=== PATIENT | male | born 1940 | race Caucasian/White ===

== ENCOUNTER 2016-11-01 09:17 | Outpatient (CLI) | payer MEDICARE ==
[~2016-11-01] VITALS: Ht 172.7 cm; Wt 110.3 kg
[~2016-11-01 09:17] MED LIST: ACET-2267 PO; ALLO100T PO; AMOX500C2 PO; ASPI-892 PO; CARV12.52 PO; CARV12.53 PO; CHOL10003 PO; CHOL2000 PO; CLIN300C11 PO; CLOP75TA PO; CLOP75TA28 PO; CLOPIDOGREL; DIGO125T PO; DIGO125T91 PO; FURO20TA4 PO; HCT25T; HYDR-3812 PO; KCL10CCR PO; LACT1CAP8 PO; LISI1TAB10 PO; LSNP10T; PANT40TA3 PO; PNT40TEC PO; SENN1TAB27 PO; SENN1TAB76 PO; SIMV40TA4 PO; SMV20T PO; TRAM50TA2 PO
[2016-11-01] MEDS ORDERED: CARV6.252 PO (09:30)
[2016-11-01] MEDS ORDERED: APIX5TAB PO (09:30)
[2016-11-01] MEDS ORDERED: HYDR12.5 PO (09:30)
[2016-11-01] MEDS ORDERED: UBID60CA6 PO (09:30)
[2016-11-01] MEDS ORDERED: AMIO200T2 PO (09:30)
[2016-11-01 09:39] VITALS: BP 142/74
== END 2016-11-01 10:20 | disposition home or self-care (01) ==
LOC: PREOP 09:17
PROVIDERS: ATTEND Orthopaedic Surgery
DX: Z01.818 Encounter for other preprocedural examination (principal); M65.341 Trigger finger, right ring finger
CPT/HCPCS: 87081

== ENCOUNTER 2016-11-06 07:33 | Day surgery (SDC) | payer MEDICARE ==
--- NOTE | 2016-11-01 10:16 | HISTORY AND PHYSICAL ---
DICTATING PHYSICIAN: Dr. Rodriguez DATE OF ADMISSION: 11/06/2016 Outpatient surgery for right ring finger trigger finger release. HISTORY: The patient is a 77-year-old, ljuwf-mtwa-ogbaqzpd gentleman with complaints of catching and locking in his right ring finger. He reports this has been ongoing for 2 years. He reports that it is worse with repetitive activities. He reports it is painful to base of his ring finger. He reports that it swells at times. He denies any specific trauma. He reports activity limitations because of the finger and because of this he has elected to proceed with surgical intervention. REVIEW OF SYSTEMS: No chest pain, no shortness of breath. No dysuria. PAST MEDICAL HISTORY: 1. Actinic keratosis. 2. Gout. 3. Diabetes mellitus. 4. Reflux. 5. Hyperlipidemia. 6. Hypertension. 7. Neck pain. 8. Sleep apnea. 9. Vertigo. 10. CVA. 11. History of sepsis. PAST SURGICAL HISTORY: 1. Appendectomy. 2. Cholecystectomy. 3. Tonsillectomy. 4. Colectomy. 5. Fistula repair. SOCIAL HISTORY: The patient denies alcohol and tobacco. FAMILY HISTORY: Noncontributory. PRIMARY CARE PROVIDER: Dr. Dorantes. MEDICATIONS: 1. Clopidogrel. 2. Amiodarone. 3. Eliquis. 4. Simvastatin. 5. Allopurinol. 6. Vitamins. 7. Carvedilol. 8. Hydrochlorothiazide. 9. Aspirin. ALLERGIES: No known drug allergies PHYSICAL EXAMINATION: The patient is well-developed, well-nourished, in no acute distress. HEENT: Normocephalic, atraumatic. Pupils are equal, round, and reactive, oropharynx is clear. NECK: Supple. No lymphadenopathy. LUNGS: Clear to auscultation bilaterally. HEART: Regular rate and rhythm. ABDOMEN: Soft, nontender, nondistended. EXTREMITY EXAM: The right ring finger demonstrates tenderness at his A1 mannie. He can demonstrate active triggering. He has intact flexion and extension, but triggering noted with flexion. Sensation is intact distally. No skin lesions noted. IMPRESSION: Right ring finger trigger. PLAN: Right ring finger trigger finger release. The risks, benefits, options, ramifications and recovery were discussed at length with the patient. He understands and wishes to proceed. Job ID: [id number] Dictated Date: 10/31/2016 15:26:59 Agency Trainer Date: 11/01/2016 10:09:18/zainab
[~2016-11-06] VITALS: Ht 172.7 cm; Wt 110.3 kg
[~2016-11-06 07:33] MED LIST changes: +AMIO200T2 PO; +APIX5TAB PO; +CARV6.252 PO; +HYDR12.5 PO; +UBID60CA6 PO
[2016-11-06] MEDS ORDERED: CLINDAMYCIN 600 MG/50 ML IVPB 50 ML IV ONE (07:45)
[2016-11-06 07:50] VITALS: BP 112/73
[2016-11-06] MEDS ORDERED: LACTATED RINGERS 1,000 ML IV PRN (08:04)
[2016-11-06] MEDS ORDERED: fentaNYL INJECTION 100 MCG/2 ML AMP ONE (08:14)
[2016-11-06] MEDS ORDERED: proPOfol 200 MG/20 ML (DIPRIVAN) VIAL IV ONE (08:14)
[2016-11-06] MEDS ORDERED: BUPIVACAINE 0.5% 30 ML (SENSORCAINE) VIAL ONE (08:15)
[2016-11-06] MEDS ORDERED: LIDOCAINE 1% INJ 20 ML (XYLOCAINE) VIAL ONE (08:15)
[2016-11-06] MEDS ORDERED: HYDROcodone/APAP 5 MG/325 MG (LORTAB) TAB PO PRN (09:00)
[2016-11-06] MEDS ORDERED: LIDOCAINE PF 2% 10 ML (XYLOCAINE) AMP ONE (09:17)
--- NOTE | 2016-11-06 09:19 | Progress Note-Pre Operative ---
Pre-Operative Progress Note H&P Reviewed The H&P was reviewed, patient examined and no changes noted. Date H&P Reviewed: Nov 06, 2016 Time H&P Reviewed: 08:25 Pre-Operative Diagnosis: right ring finger trigger ERROL HERNANDES MD Nov 06, 2016 09:19
--- NOTE | 2016-11-06 09:21 | Progress Note-Post Operative ---
Post-Operative Progess Note Analytics Lead ivon tracey Pre-Operative Diagnosis right ring finger trigger Post-Operative Diagnosis right ring finger trigger Post-Op Procedure Note Date of Procedure: Nov 06, 2016 Name of Procedure: right ring finger A1 mannie release Anesthesia Type MAC plus local Estimated blood loss (mL): minimal Packing: none Specimen(s) collected none ERROL HERNANDES MD Nov 06, 2016 09:21
[2016-11-06] MEDS ORDERED: ONDANSETRON 4 MG/2 ML (SDV) Z0FRAN IVP PRN (09:30)
[2016-11-06 09:45] VITALS: BP 112/61
[2016-11-06] MEDS ORDERED: HYDR-3062 PO (09:52)
[2016-11-06 10:15] VITALS: BP 113/63
[2016-11-06 10:39] VITALS: BP 113/63
--- NOTE | 2016-11-06 13:47 | OPERATIVE REPORT ---
PROCEDURE PHYSICIAN: ERROL HERNANDES DATE OF PROCEDURE: 11/06/2016 PREOPERATIVE DIAGNOSIS: Right ring trigger finger. POSTOPERATIVE DIAGNOSIS: Right ring trigger finger. PROCEDURE: Right ring finger A1 mannie release. SURGEON: Jennifer MANAGER ANIMAL: Varun Turner who assisted throughout the procedure and closed the incision. ANESTHESIA: Monitored anesthesia care plus local by Dr. Tinoco TOURNIQUET TIME: 4 minutes at 250 mmHg. ESTIMATED BLOOD LOSS: Minimal. DRAINS: None. COMPLICATIONS: None. POSTOPERATIVE PLAN: Routine protocol. The patient was transported to the recovery room, awake, in stable condition. STATEMENT OF MEDICAL NECESSITY: The patient is a 76-year-old, fasan-juhe-urioczde gentleman with complaints of greater than one-year history of right ring finger catching and locking. He was tender over his A1 mannie. He had pain with flexion. He can demonstrate active triggering. He failed to respond to conservative measures and due to functional impairment, the patient elected to proceed with surgical intervention. PROCEDURE: After risks and benefits of procedure were discussed and questions were answered an informed consent was signed and placed on chart. The operative site was confirmed in the preoperative holding and initialed by the surgeon. The patient was then transported to the operating room and after adequate levels of monitored anesthesia care were obtained under sterile conditions, the right ring finger was infiltrated with combination of plain lidocaine and plain Marcaine. The right upper extremity was then prepped and draped usual sterile fashion. With arm elevated, the tourniquet was inflated to 250 mmHg. A longitudinal incision was made over the A1 mannie. The underlying soft tissues were bluntly dissected. The A1 mannie was identified and incised longitudinally in line with the incision. The flexor tendons were intact. The finger was taken through a range of motion with no catching or locking noted with full motion noted. The wound was copiously irrigated after deflating the tourniquet and then closed with 4-0 nylon in a simple interrupted fashion. A soft dressing was applied and the patient was transported to the recovery room, awake, in stable condition. Job ID: [id number] Dictated Date: 11/06/2016 09:19:57 Paper Machine Tender Date: 11/06/2016 13:40:46 / zainab
== END 2016-11-06 10:39 | disposition home or self-care (01) ==
LOC: SDC 07:33
PROVIDERS: ATTEND Orthopaedic Surgery
DX: M65.341 Trigger finger, right ring finger (principal); E11.9 Type 2 diabetes mellitus without complications; K21.9 Gastro-esophageal reflux disease without esophagitis; E78.5 Hyperlipidemia, unspecified; I10 Essential (primary) hypertension; Z86.73 Personal history of transient ischemic attack (TIA), and cerebral infarction without residual deficits; Z79.899 Other long term (current) drug therapy

== ENCOUNTER → 2017-01-16 | Outpatient (CLI) | payer MEDICARE ==
[~2017-01-16] MED LIST changes: +HYDR-3062 PO
[2017-01-16 12:03] LABS: BASOPHILS % (AUTO) 1 % (0-10); EOSINOPHILS # (AUTO) 0.2 10^3/uL (0.0-0.3); EOSINOPHILS % (AUTO) 4 % (0-10); LYMPHOCYTES # (AUTO) 1.4 X 10^3 (1.0-4.0); LYMPHOCYTES % (AUTO) 23 % (12-44); MEAN CORPUSCULAR HEMOGLOBIN 31 PG (25-34); MEAN CORPUSCULAR HGB CONC 33 G/DL (32-36); MEAN CORPUSCULAR VOLUME 93 FL (80-99); MEAN PLATELET VOLUME 8.9 FL (7.4-10.4); MONOCYTES # (AUTO) 0.7 X 10^3 (0.0-1.0); MONOCYTES % (AUTO) 11 % (0-12); NEUTROPHILS # (AUTO) 3.9 X 10^3 (1.8-7.8); NEUTROPHILS % (AUTO) 62 % (42-75); PLATELET COUNT 247 10^3/uL (130-400); RED CELL DISTRIBUTION WIDTH 14.7 % (10.0-14.5); WHITE BLOOD COUNT 6.3 10^3/uL (4.3-11.0)
[2017-01-16 12:32] LABS: ERYTHROCYTE SEDIMENTATION RATE 18 MM/HR (0-30)
== END ==
LOC: LAB 11:40
PROVIDERS: ATTEND Internal Medicine
DX: T81.31XA Disruption of external operation (surgical) wound, not elsewhere classified, initial encounter (principal)
CPT/HCPCS: 36415; 85025; 85652

== ENCOUNTER → 2017-01-24 | Outpatient (CLI) | payer MEDICARE ==
--- NOTE | 2017-01-27 13:23 | ECHOCARDIOGRAPHY REPORT ---
DATE OF SERVICE: 01/24/2017 A 2D ECHOCARDIOGRAM REFERRING PHYSICIAN: Dr. Dorantes. MEASUREMENT: LVID end diastolic 6.0. IVS thickness 0.8. LVPW thickness 0.8. Left atrial diameter 4.7. Ejection fraction 30%. FINDINGS: 1. The left ventricle is dilated with diffuse left ventricular hypokinesia. Systolic function is reduced. Estimated ejection fraction 30%. 2. The left atrium is dilated. No clot or thrombus were seen within the left atrium. 3. The right atrium and right ventricle are normal in size. No clot or thrombus were seen within the right side. 4. Mitral valve is normal in morphology with mild mitral regurgitation noted by color Doppler flow. No mitral valve prolapse. No mitral valve stenosis. 5. Aortic valve is trileaflet with normal opening and closing pattern. No significant aortic stenosis or regurgitation was seen. 6. Tricuspid valve is normal in morphology with mild tricuspid regurgitation noted by color Doppler flow. Doppler across the tricuspid valve estimated pulmonary artery pressure of 26 plus right atrial pressure. 7. Pulmonic valve is functioning normally. 8. No pericardial effusion. CONCLUSION: 1. Dilated left ventricle with diffuse left ventricular hypokinesia. Systolic function is reduced. Estimated ejection fraction 30%. 2. Left atrial dilatation. 3. Mild mitral and tricuspid regurgitation. 4. Estimated pulmonary artery pressure of 30 mmHg. Job ID: [id number] DocumentID: [id number] Dictated Date: 01/27/2017 08:14:46 Preschool Director Date: 01/27/2017 10:14:56 Dictated By: LAKSHMI SALDIVAR MD
== END ==
LOC: CARD 12:31
PROVIDERS: ATTEND Physician Assistant
DX: I48.0 Paroxysmal atrial fibrillation (principal); I11.0 Hypertensive heart disease with heart failure; I50.22 Chronic systolic (congestive) heart failure; E78.2 Mixed hyperlipidemia
CPT/HCPCS: 93306

== ENCOUNTER 2017-01-30 10:40 | Outpatient (RCR) | payer MEDICARE | END 2017-01-30 16:00 | disposition home or self-care (01) | LOC: WOUNDCARE 10:40 | PROVIDERS: ATTEND Internal Medicine | DX: T81.31XA Disruption of external operation (surgical) wound, not elsewhere classified, initial encounter (principal); S31.105S Unspecified open wound of abdominal wall, periumbilic region without penetration into peritoneal cavity, sequela | CPT/HCPCS: 15271; 87070; 87075; 87077; 87101; 87186; 87205; 99212; 99213 ==

== ENCOUNTER 2017-05-30 05:33 | Outpatient (CLI) | payer MEDICARE ==
[~2017-05-30] VITALS: Ht 172.7 cm; Wt 115.2 kg
== END 2017-05-30 09:16 ==
LOC: PREOP 05:33
PROVIDERS: ATTEND Surgery
DX: Z01.818 Encounter for other preprocedural examination (principal); Z12.11 Encounter for screening for malignant neoplasm of colon

== ENCOUNTER 2017-06-04 06:51 | Day surgery (SDC) | payer MEDICARE ==
[~2017-06-04] VITALS: Ht 172.7 cm; Wt 115.2 kg
[2017-06-04] MEDS ORDERED: LACTATED RINGERS 1,000 ML IV ONE (07:00)
[2017-06-04] MEDS ORDERED: LACTATED RINGERS 1,000 ML IV STA (07:00)
[2017-06-04 07:26] VITALS: BP 133/69
[2017-06-04] MEDS ORDERED: proPOfol 200 MG/20 ML (DIPRIVAN) VIAL IV ONE (07:58)
--- NOTE | 2017-06-04 08:04 | Progress Note-Pre Operative ---
Pre-Operative Progress Note H&P Reviewed The H&P was reviewed, patient examined and no changes noted. Time Seen by Provider: 07:58 Date H&P Reviewed: Jun 04, 2017 Time H&P Reviewed: 07:56 Pre-Operative Diagnosis: Screening colonoscopy AMOS NDIAYE DO Jun 04, 2017 08:04
--- NOTE | 2017-06-04 08:52 | Progress Note-Post Operative ---
Post-Operative Progess Note Surgeon (s)/Technology Program Manager (s) Surgeon AMOS NDIAYE DO Technology Program Manager: none Pre-Operative Diagnosis Screening colonoscopy Post-Operative Diagnosis Polyp Diverticula Int hemorrhoids Procedure & Operative Findings Date of Procedure 06/04/17 Procedure Performed/Findings Colonoscopy with hot bx Anesthesia Type IV sedation by HARVESTING MANAGER Estimated Blood Loss Estimated blood loss (mL): scant Specimens/Packing Specimens Removed polyp from left colon, appx 40cm up AMOS NDIAYE DO Jun 04, 2017 08:52
--- NOTE | 2017-06-04 08:55 | Endoscopy Discharge Instruct ---
Endo Procedure/Findings Findings 1.: Polyp 2.: Diverticulosis 3.: Internal Hemorrhoids Discharge Instructions - Activity: You might feel a little sleepy until tomorrow. This is due to the medicine you received to relax you. Until tomorrow, you should: NOT drive a car, operate machinery or power tools. NOT drink any alcoholic beverages. NOT make any important decisions or sign importortant papers. Do not return to work until tomorrow, unless otherwise instructed. Resume previous activities tomorrow. Diet: Start by taking liquids. If you tolerate liquids, advance to solid food. make appointment for one week, Instructions: 1.: Colonscopy in 5 years Notify Physician - If you experience excessive bleeding, unusual abdominal pain, fever, or chest pain, contact your doctor immediately. [phone] Follow-Up: - I have received and understand the above instructions and will call my doctor if I have any further questions. Patient Signature Date Nurse Signature Other (Relationship) AMOS NDIAYE DO Jun 04, 2017 08:55
[2017-06-04 09:00] VITALS: BP 87/50
[2017-06-04 09:30] VITALS: BP 100/70
[2017-06-04 14:46] VITALS: BP 100/70
--- NOTE | 2017-06-04 18:13 | OPERATIVE REPORT ---
DATE OF SERVICE: 06/04/2017 PREOPERATIVE DIAGNOSIS: Screening colonoscopy. POSTOPERATIVE DIAGNOSES: 1. Colon polyp. 2. Diverticula. 3. Internal hemorrhoids. PROCEDURE: Colonoscopy with hot biopsy. SURGEON: Dr. Chou. BOX SPRING FRAME BUILDER: None. ANESTHESIA: IV sedation by the CLERICAL DENTIST ASSISTANT. SPECIMEN: Polyp from the left side of the colon about 40 cm up. BLOOD LOSS: Scant. FLUIDS: Per anesthesia. POSTOPERATIVE CONDITION: Stable. INDICATION FOR PROCEDURE: The patient is a 77-year-old male, who has never had a colonoscopy. He has had a previous colon resection for diverticulitis. FINDINGS: The patient had a small polyp at about 40 cm up removed with hot biopsy. He also had some large diverticula throughout the colon and some at least grade 2 internal hemorrhoids. No other obvious pathology seen. PROCEDURE NOTE: After informed consent was obtained, the patient was brought to the endoscopy suite, placed in the bed in left lateral decubitus position. He was administered IV sedation. Vitals were monitored the entire time by the CLERICAL DENTIST ASSISTANT and the scope was inserted to about 120 cm, able to get all the way to the cecum, took a picture of the appendiceal orifice and then able to get into the terminal ileum, took a picture and then slowly withdrew the scope insufflating to look circumferentially whilst looking at the cecum up the ascending colon to the hepatic flexure and then down the transverse colon. All throughout here, there was diverticula, some very large ones, mostly the large ones in the left side of the colon. He had some type of colon resection, unsure which part was removed, so the left side of the colon unsure exactly which part we were in, took picture of the diverticula. Saw small polyp, took a picture of this and then elected to do a hot biopsy, the patient is on Plavix and Coumadin. Removed this and sent this to pathology. Continued down into the rectal vault. Retroflexed in rectal vault saw some large internal hemorrhoids at least grade 2, took a picture of these and then removed the scope. The patient tolerated the procedure and he was recovered in the endoscopy suite. Job ID: [id number] DocumentID: [id number] Dictated Date: 06/04/2017 09:02:30 Supervisor Roving Department Date: 06/04/2017 15:28:18 Dictated By: AMOS CHOU DO
== END 2017-06-04 09:40 | disposition home or self-care (01) ==
LOC: ENDO 06:51
PROVIDERS: ATTEND Surgery
DX: J44.9 Chronic obstructive pulmonary disease, unspecified; Z79.01 Long term (current) use of anticoagulants; Z79.02 Long term (current) use of antithrombotics/antiplatelets; Z12.11 Encounter for screening for malignant neoplasm of colon; Z87.891 Personal history of nicotine dependence; I48.91 Unspecified atrial fibrillation; E78.5 Hyperlipidemia, unspecified; I50.9 Heart failure, unspecified; Z68.38 Body mass index [BMI] 38.0-38.9, adult; D12.6 Benign neoplasm of colon, unspecified; K64.8 Other hemorrhoids; G47.33 Obstructive sleep apnea (adult) (pediatric); I11.0 Hypertensive heart disease with heart failure; K57.30 Diverticulosis of large intestine without perforation or abscess without bleeding; E66.01 Morbid (severe) obesity due to excess calories

== ENCOUNTER 2017-11-23 18:32 | Emergency (ER) | payer MEDICARE ==
[~2017-11-23] VITALS: Ht 172.7 cm; Wt 113.4 kg
[~2017-11-23 18:32] MED LIST changes: +ACHD5005 PO; -HYDR-3812 PO
[2017-11-23] MEDS ORDERED: SACU1TAB PO (19:05)
--- NOTE | 2017-11-23 20:26 | ED Syncope ---
General Chief Complaint: Dizziness/Syncope Stated Complaint: DIZZINESS,SYNCOPE Nursing Triage Note: PT REPORTS PASSING OUT AT LATTER-DAY TODAY AT 1030, FALLING AND HITTING HIS HEAD ON A PEW AND THEN WAKING UP. PT REPORT GANDHI NOW AND DIZZINESS NOW WITH MOVEMENT. History of Present Illness Date Seen by Provider: Nov 23, 2017 Time Seen by Provider: 20:25 Initial Comments 77-year-old male reports becoming weak at hindu this morning, at approximately 10:30 he lost his balance because of weakness falling forward. He is unsure what he hit that as he hit something he did come to. He refused to go to the hospital at that time. Since then he's been continuing to have dizziness and now a headache. He is on Eliquis and a has a history of a stroke, symptoms resolved after right carotid endarterectomy. Location Injury Occurred: [facility] in [place], [place]. Timing/Prior Episodes: Recent History Symptoms Prior to Episode: Confusion, Other (headache) Precipitating Factors: None Loss of Consciousness: Brief (Seconds) Current Symptoms: No Blurred Vision, No Chest Pain, No Diaphoresis, Dizziness, Headache, No Injury, No Loss of Bladder Control, No Loss of Bowel Control, No Motionless, No Nausea, No Pale, No Shallow/Rapid Breathing, No Weak/Absent Pulse , Weakness Allergies and Home Medications Allergies Coded Allergies: Penicillins (Verified Allergy, Severe, 07/06/15) amoxicillin (Verified Allergy, Severe, 07/06/15) codeine (Unverified Allergy, Severe, HIVES, 02/07/12) ibuprofen (Verified Allergy, Intermediate, ANKLES SWELL, 11/01/16) Home Medications Acetaminophen 500 Mg Tablet, 1,000 MG PO Q6H PRN for PAIN, (Reported) Allopurinol 100 Mg Tablet, 100 MG PO HS, (Reported) Amiodarone HCl 200 Mg Tablet, 200 MG PO DAILY, (Reported) Apixaban 5 Mg Tablet, 5 MG PO HS, (Reported) Carvedilol 6.25 Mg Tablet, 6.25 MG PO BID, (Reported) Cholecalciferol (Vitamin D3) 1,000 Unit Tablet, 1,000 UNIT PO HS, (Reported) Sacubitril/Valsartan 1 Each Tablet, 1 TAB PO BID, (Reported) Tramadol HCl 50 Mg Tablet, 50-100 MG PO Q6H PRN for PAIN, (Reported) TAKES 1 TO 2 (50MG) TABLETS Ubidecarenone 60 Mg Capsule, 60 MG PO DAILY, (Reported) Patient Home Medication List Home Medication List Reviewed: Yes Constitutional: no symptoms reported, see HPI Musculoskeletal: see HPI, neck pain Psychiatric/Neurological: See HPI, Headache, Other (dizziness) Past Qtozgvb-Nxnacx-Uavygw Hx Patient Social History Alcohol Use: Rarely Uses Recreational Drug Use: No Smoking Status: Former Smoker Type Used: Cigarettes Former Smoker, Quit: Nov 01, 1983 2nd Hand Smoke Exposure: No Recent Foreign Travel: No Contact w/Someone Who Travel: No Recent Infectious Disease Expo: No Recent Hopitalizations: No Physical Abuse: No Sexual Abuse: No Immunizations Up To Date Tetanus Booster (TDap): Unknown PED Vaccines UTD: No Date of Pneumonia Vaccine: Jul 09, 2014 Date of Influenza Vaccine: Jun 03, 2016 Seasonal Allergies Seasonal Allergies: Yes Surgeries History of Surgeries: Yes (SHOULDER X2, COLON RESECTION-DIVERTIC, STENT CAROTID ARTERY) Surgeries: Appendectomy, Defibrillator, Gallbladder, Pacemaker Respiratory History of Respiratory Disorde: Yes Respiratory Disorders: Sleep Apnea Currently Using CPAP: Yes Currently Using BIPAP: No Cardiovascular History of Cardiac Disorders: Yes (arrhythmia, PACEMAKER/DEFIB, lower extremity edema, right carotid stent) Cardiac Disorders: High Cholesterol, Irregular Heartbeat Neurological History of Neurological Disord: Yes Neurological Disorders: Headaches /Migraines, Stroke Reproductive System Hx Reproductive Disorders: No Sexually Transmitted Disease: No Gastrointestinal History of Gastrointestinal Di: Yes (DIVERTICULOSIS, COLON RESECTION) Gastrointestinal Disorders: Diverticulosis, Polyps Musculoskeletal History of Musculoskeletal Dis: Yes (3 LEFT FOOT FRACTURES) Musculoskeletal Disorders: Arthritis Endocrine History of Endocrine Disorders: No HEENT Loss of Vision: Bilateral Hearing Impairment: Bilateral Hearing Aide Cancer History of Cancer: No Psychosocial History of Psychiatric Problem: No Suicide Risk Score: 0 Integumentary History of Skin or Integumenta: No Blood Transfusions History of Blood Disorders: No Adverse Reaction to a Blood Tr: No (N/A) Reviewed Nursing Assessment Reviewed/Agree w Nursing PMH: Yes Family Medical History Significant Family History: Heart Disease, Diabetes, Hypertension Family Medial History: Patient reports no known family medical history. Physical Exam Vital Signs Vital Signs - First Documented 11/23/17 18:57 Temp 99.2 Pulse 80 Resp 18 B/P (MAP) 157/83 (107) Pulse Ox 96 O2 Delivery Room Air Capillary Refill : Less Than 3 Seconds General Appearance: No Apparent Distress, WD/WN HEENT: PERRL/EOMI, TMs Normal, Normal ENT Inspection, Pharynx Normal Neck: Full Range of Motion, Normal Inspection, Tender Lateral Cardiovascular: Regular Rate, Rhythm, No Murmur, Normal Peripheral Pulses Respiratory: Chest Non Tender, Lungs Clear, Normal Breath Sounds Gastrointestinal: Normal Bowel Sounds, Non Tender, Soft Neurologic/Psychiatric: Alert, Oriented x3, No Motor/Sensory Deficits, Normal Mood/Affect, tobacco curer II-XII Norm as Tested (grossly intact) Cranial Nerves: Normal Hearing, Normal Speech, PERRL Coordination/Gait: Normal Finger to Nose Motor/Sensory: No Motor Deficit, No Sensory Deficit, No Pronator Drift Skin: Normal Color, Warm/Dry Lymphatic: No Adenopathy Progress/Results/Core Measures Results/Orders Lab Results Laboratory Tests Test 11/23/17 21:12 Range/Units White Blood Count 5.2 4.3-11.0 10^3/uL Red Blood Count 4.56 4.35-5.85 10^6/uL Hemoglobin 14.3 13.3-17.7 G/DL Hematocrit 43 40-54 % Mean Corpuscular Volume 94 80-99 FL Mean Corpuscular Hemoglobin 31 25-34 PG Mean Corpuscular Hemoglobin Concent 34 32-36 G/DL Red Cell Distribution Width 13.7 10.0-14.5 % Platelet Count 184 130-400 10^3/uL Mean Platelet Volume 9.5 7.4-10.4 FL Neutrophils (%) (Auto) 68 42-75 % Lymphocytes (%) (Auto) 19 12-44 % Monocytes (%) (Auto) 12 0-12 % Eosinophils (%) (Auto) 1 0-10 % Basophils (%) (Auto) 0 0-10 % Neutrophils # (Auto) 3.5 1.8-7.8 X 10^3 Lymphocytes # (Auto) 1.0 1.0-4.0 X 10^3 Monocytes # (Auto) 0.6 0.0-1.0 X 10^3 Eosinophils # (Auto) 0.1 0.0-0.3 10^3/uL Basophils # (Auto) 0.0 0.0-0.1 10^3/uL Sodium Level 139 135-145 MMOL/L Potassium Level 4.6 3.6-5.0 MMOL/L Chloride Level 106 98-107 MMOL/L Carbon Dioxide Level 22 21-32 MMOL/L Anion Gap 11 5-14 MMOL/L Blood Urea Nitrogen 31 H 7-18 MG/DL Creatinine 1.55 H 0.60-1.30 MG/DL Estimat Glomerular Filtration Rate 44 BUN/Creatinine Ratio 20 Glucose Level 93 70-105 MG/DL Calcium Level 9.1 8.5-10.1 MG/DL Total Bilirubin 0.4 0.1-1.0 MG/DL Aspartate Amino Transf (AST/SGOT) 23 5-34 U/L Alanine Aminotransferase (ALT/SGPT) 20 0-55 U/L Alkaline Phosphatase 68 40-136 U/L Total Protein 7.0 6.4-8.2 GM/DL Albumin 3.9 3.2-4.5 GM/DL Micro Results Microbiology 11/23/17 Influenza Types A,B Antigen (RAYO) - Final, Complete My Orders Orders - RAEGAN HERBERT Ct Head/Cervical Spine Wo (11/23/17 20:33) Cbc With Automated Diff (11/23/17 20:35) Comprehensive Metabolic Panel (11/23/17 20:35) Influenza A And B Antigens (11/23/17 20:35) Chest Pa/Lat (2 View) (11/23/17 20:35) Acetaminophen Tablet/Caplet (Tylenol T (11/23/17 21:22) Vital Signs/I&O Vital Sign - Last 12Hours 11/23/17 11/23/17 18:57 22:18 Temp 99.2 99.2 Pulse 80 80 Resp 18 18 B/P (MAP) 157/83 (107) 157/83 (107) Pulse Ox 96 96 O2 Delivery Room Air Blood Pressure Mean: 107 Progress Note : Time: 20:25 Progress Note Initial evaluation completed, recommended CT of the head and neck and chest x- ray. [address] with the patient and his children. Get labs and reevaluate. Tylenol 650 mg orally for pain. 2199 discharge instructions and return precautions reviewed with the patient and his daughter, all questions answered. Diagnostic Imaging Diagonstic Imaging: CT Plain Films/CT/US/NM/MRI: c-spine, head Comments NAME: ANAT KENDALL MED REC#: [id number] PT STATUS: REG ER : 1940 PHYSICIAN: RAEGAN HERBERT ADMIT DATE: 11/23/17/ER Draft Date of Exam:11/23/17 CT HEAD/CERVICAL SPINE WO PROCEDURE: CT head and CT cervical spine without contrast. TECHNIQUE: Multiple contiguous axial images were obtained through the brain and cervical spine without the use of intravenous contrast. Sagittal and coronal reformations through the cervical spine were then performed. INDICATION: Patient states felt different this morning in hindu, passed out hitting head, complaining of pain from forehead down to the back of the neck. COMPARISON STUDY: CT scan of the cervical spine from 05/25/2015. FINDINGS: Noncontrast CT scanning of the head demonstrates no mass effect, midline shift, hemorrhage or extra-axial fluid collections. Arreaga-white matter differentiation appears normal. Bone windows appear normal. Mild mucosal thickening is present in the ethmoid air cells. Cervical spine: Noncontrast CT scan of the cervical spine demonstrates no fracture. Diffuse degenerative changes are again identified. Calcification of the carotid arteries present. The lung apices are clear. Minimal anterolisthesis present at C4 and C5 and appear stable. C2-3 level demonstrates mild narrowing of the left neuroforamina. C3-4 level demonstrates minimal narrowing of the neuroforamina. C4-5 level demonstrates mild to moderate narrowing of the left neuroforamina. C5-6 level demonstrates moderate narrowing of the neuroforamina, right greater than left, and mild/moderate central stenosis. C6-7 level demonstrates stable mild foraminal stenosis and central stenosis. IMPRESSION: 1. 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 2. Normal intracranial contents. Mild ethmoid sinusitis is present. Dictated on workstation # [id number] Dict: 11/23/172051 Trans: 11/23/172103 [id number] Interpreted by: CLAUS JAIMES MD Electronically signed by: Diagonstic Imaging: Xray Plain Films/CT/US/NM/MRI: chest Comments NAME: ANAT KENDALL MED REC#: [id number] PHYSICIAN: RAEGAN HERBERT CC: RAEGAN HERBERT; CLAUS JAIMES MD Page 1 of 1 RADIOLOGY REPORT VIA [facility], [facility]. [place], [place] CC: RAEGAN HERBERT; CLAUS JAIMES MD Page 1 of 1 RADIOLOGY REPORT NAME: ANAT KENDALL MED REC#: [id number] PT STATUS: REG ER : 1940 PHYSICIAN: RAEGAN HERBERT ADMIT DATE: 11/23/17/ER Signed Date of Exam: 11/23/17 CHEST PA/LAT (2 VIEW) INDICATION: Patient passed out earlier at hindu today and hit head. COMPARISON STUDY: Chest from 11/23/2015. FINDINGS: Frontal and lateral views of the chest demonstrate the pacemaker leads to be unchanged. The lungs are clear. Heart size and vascularity are normal. There are no pleural effusions. No fractures are present. IMPRESSION: Stable chest. Dictated by: Dictated on workstation # [id number] Dict: 11/23/172124 Trans: 11/23/172145 Interpreted by: CLAUS JAIMES MD Electronically signed by: CLAUS JAIMES MD 11/23/172145 Reviewed: Reviewed by Me Departure Impression Impression: Primary Impression: Minor head injury Qualified Codes: S00.90XA - Unspecified superficial injury of unspecified part of head, initial encounter Additional Impressions: Vertigo Cough Disposition: 01 HOME, SELF-CARE Condition: Stable Departure-Patient Inst. Decision time for Depature: 22:00 Referrals: REYNALDO MEJIA MD (PCP/Family) Primary Care Physician Patient Instructions: Minor Head Injury (DC), Vertigo (a Type of Dizziness) (DC ) Add. Discharge Instructions: Ypot-dhg-lvpwssa cough and cold medicine as needed. Tylenol 650 mg every 6 hours for pain or fever. Increase water intake. Avoid any high risk activities that could increase risk of falls. Use walker or cane as needed for stability when ambulating. Follow-up with Dr. Mejia in 2-3 days if symptoms are not improving. Return to the emergency department for new problems or concerns. All discharge instructions reviewed with patient and/or family. Voiced understanding. Copy Copies To 1: REYNALDO MEJIA MD, AMY ARNP Nov 23, 2017 20:26
--- NOTE | 2017-11-23 21:04 | Diagnostic Imaging Report ---
PROCEDURE: CT head and CT cervical spine without contrast. TECHNIQUE: Multiple contiguous axial images were obtained through the brain and cervical spine without the use of intravenous contrast. Sagittal and coronal reformations through the cervical spine were then performed. INDICATION: Patient states felt different this morning in [place], passed out hitting head, complaining of pain from forehead down to the back of the neck. COMPARISON STUDY: CT scan of the cervical spine from 05/25/2015. FINDINGS: Noncontrast CT scanning of the head demonstrates no mass effect, midline shift, hemorrhage or extra-axial fluid collections. Arreaga-white matter differentiation appears normal. Bone windows appear normal. Mild mucosal thickening is present in the ethmoid air cells. Cervical spine: Noncontrast CT scan of the cervical spine demonstrates no fracture. Diffuse degenerative changes are again identified. Calcification of the carotid arteries present. The lung apices are clear. Minimal anterolisthesis present at C4 and C5 and appear stable. C2-3 level demonstrates mild narrowing of the left neuroforamina. C3-4 level demonstrates minimal narrowing of the neuroforamina. C4-5 level demonstrates mild to moderate narrowing of the left neuroforamina. C5-6 level demonstrates moderate narrowing of the neuroforamina, right greater than left, and mild/moderate central stenosis. C6-7 level demonstrates stable mild foraminal stenosis and central stenosis. IMPRESSION: 1. 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 2. Normal intracranial contents. Mild ethmoid sinusitis is present. Dictated by: Dictated on workstation # [id number]
[2017-11-23] MEDS ORDERED: ACETAMINOPHEN 325 MG TABLET/CAPLET (TYLENOL) PO STA (21:22)
--- NOTE | 2017-11-23 21:30 | Diagnostic Imaging Report ---
INDICATION: Patient passed out earlier at [employer] today and hit head. COMPARISON STUDY: Chest from 11/23/2015. FINDINGS: Frontal and lateral views of the chest demonstrate the pacemaker leads to be unchanged. The lungs are clear. Heart size and vascularity are normal. There are no pleural effusions. No fractures are present. IMPRESSION: Stable chest. Dictated by: Dictated on workstation # [id number]
[2017-11-23 21:32] LABS: BASOPHILS % (AUTO) 0 % (0-10); EOSINOPHILS # (AUTO) 0.1 10^3/uL (0.0-0.3); EOSINOPHILS % (AUTO) 1 % (0-10); HEMATOCRIT 43 % (40-54); HEMOGLOBIN 14.3 G/DL (13.3-17.7); LYMPHOCYTES % (AUTO) 19 % (12-44); MEAN CORPUSCULAR HEMOGLOBIN 31 PG (25-34); MEAN CORPUSCULAR HGB CONC 34 G/DL (32-36); MEAN CORPUSCULAR VOLUME 94 FL (80-99); MEAN PLATELET VOLUME 9.5 FL (7.4-10.4); MONOCYTES # (AUTO) 0.6 X 10^3 (0.0-1.0); MONOCYTES % (AUTO) 12 % (0-12); NEUTROPHILS # (AUTO) 3.5 X 10^3 (1.8-7.8); NEUTROPHILS % (AUTO) 68 % (42-75); PLATELET COUNT 184 10^3/uL (130-400); RED BLOOD COUNT 4.56 10^6/uL (4.35-5.85); RED CELL DISTRIBUTION WIDTH 13.7 % (10.0-14.5); WHITE BLOOD COUNT 5.2 10^3/uL (4.3-11.0)
[2017-11-23 21:58] LABS: ALBUMIN 3.9 GM/DL (3.2-4.5); BILIRUBIN,TOTAL 0.4 MG/DL (0.1-1.0); CALCIUM 9.1 MG/DL (8.5-10.1); CREATININE SERUM 1.55 MG/DL (0.60-1.30); POTASSIUM 4.6 MMOL/L (3.6-5.0)
[2017-11-23 22:18] VITALS: BP 157/83
--- OUTSIDE RECORDS SUMMARY | 2017-11-24 10:15 | XMS REPORT | Continuity of Care Document ---
Author Author [facility] Organization [facility] Address Unknown Phone Unavailable Allergies Active Description Code Type Severity Reaction Onset Reported/Identified Relationship to Patient Clinical Status Yes codeine [id number] Drug Allergy Severe HIVES 02/07/2012 Yes amoxicillin [id number] Drug Allergy Severe N/A 07/06/2015 Yes Penicillins [id number] Drug Allergy Severe N/A 07/06/2015 Yes ibuprofen [id number] Drug Allergy Moderate ANKLES SWELL 11/01/2016 Medications There is no data. Problems Date Dx Coded Attending Type Code Diagnosis Diagnosed By 09/06/2011 Ot 327.23 OBSTRUCTIVE SLEEP APNEA (ADULT) (PEDIATR 02/11/2012 Ot 211.3 BENIGN NEOPLASM LG BOWEL 02/11/2012 Ot 280.9 IRON DEFIC ANEMIA NOS 02/11/2012 Ot 530.19 OTHER ESOPHAGITIS 02/11/2012 Ot 553.3 DIAPHRAGMATIC HERNIA 02/11/2012 Ot 562.10 DIVERTICULOSIS COLON (W/O MENT OF HEMORR 02/11/2012 Ot V58.63 LONG-TERM( CURRENT)USE OF ANTIPLATELET/AN 02/11/2012 Ot V58.66 LONG-TERM ( CURRENT) USE OF ASPIRIN 06/03/2012 Ot 272.4 HYPERLIPIDEMIA NEC/NOS 06/03/2012 Ot 327.23 OBSTRUCTIVE SLEEP APNEA (ADULT) (PEDIATR 06/03/2012 Ot 401.9 HYPERTENSION NOS 06/03/2012 Ot 414.01 CORONARY ATHEROSCLEROSIS OF [place] CORON 06/03/2012 Ot 425.4 PRIM CARDIOMYOPATHY NEC 06/03/2012 Ot 428.0 CONGESTIVE HEART FAILURE NOS 06/03/2012 Ot 428.22 CHRONIC SYSTOLIC HRT FAILURE 06/03/2012 Ot 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 06/03/2012 Ot 794.30 ABN CARDIOVASC STUDY NOS 06/03/2012 Ot V12.54 PERSONAL HX OF TIA, CEREBRAL INFARCTION 06/03/2012 Ot V58.63 LONG-TERM( CURRENT)USE OF ANTIPLATELET/AN 06/03/2012 Ot V58.66 LONG-TERM ( CURRENT) USE OF ASPIRIN 06/03/2012 Ot V58.69 OTH MED,LT, CURRENT USE 05/10/2013 LUCRECIA SANDHU MD Ot 272.0 PURE HYPERCHOLESTEROLEM 05/10/2013 LUCRECIA SANDHU MD Ot 401.9 HYPERTENSION NOS 05/10/2013 LUCRECIA SANDHU MD Ot 414.8 CHR ISCHEMIC HRT DIS NEC 05/10/2013 LUCRECIA SANDHU MD Ot 427.31 ATRIAL FIBRILLATION 05/10/2013 LUCRECIA SANDUH MD Ot 553.20 VENTRAL HERNIA NOS 05/10/2013 LUCRECIA SANDHU MD Ot 560.9 INTESTINAL OBSTRUCT NOS 05/10/2013 LUCRECIA SANDHU MD Ot 562.10 DIVERTICULOSIS COLON (W/O MENT OF HEMORR 05/10/2013 LUCREICA SANDHU MD Ot 780.57 UNSPECIFIED SLEEP APNEA 05/10/2013 LUCRECIA SANDHU MD Ot V12.54 PERSONAL HX OF TIA, CEREBRAL INFARCTION 05/10/2013 LUCRECIA SANDHU MD Ot 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 07/11/2014 THADDEUS LEWIS MD Ot 038.9 SEPTICEMIA NOS 07/11/2014 THADDEUS LEWIS MD Ot 263.1 MALNUTRITION MILD DEGREE 07/11/2014 THADDEUS LEWIS MD Ot 276.1 HYPOSMOLALITY 07/11/2014 THADDEUS LEWIS MD Ot 276.7 HYPERPOTASSEMIA 07/11/2014 THADDEUS LEWIS MD Ot 278.01 MORBID OBESITY 07/11/2014 THADDEUS LEWIS MD Ot 285.9 ANEMIA NOS 07/11/2014 THADDEUS LEWIS MD Ot 327.23 OBSTRUCTIVE SLEEP APNEA (ADULT) (PEDIATR 07/11/2014 THADDEUS LEWIS MD Ot 401.9 HYPERTENSION NOS 07/11/2014 THADDEUS LEWIS MD Ot 414.01 CORONARY ATHEROSCLEROSIS OF [place] CORON 07/11/2014 THADDEUS LEWIS MD Ot 414.8 CHR ISCHEMIC HRT DIS NEC 07/11/2014 THADDEUS LEWIS MD Ot 428.0 CONGESTIVE HEART FAILURE NOS 07/11/2014 THADDEUS LEWIS MD Ot 522.5 PERIAPICAL ABSCESS 07/11/2014 THADDEUS LEWIS MD Ot 530.81 ESOPHAGEAL REFLUX 07/11/2014 DEBBIE ARTHUR, THADDEUS Russo Ot 584.9 ACUTE RENAL FAILURE, UNSPECIFIED 07/11/2014 DEBBIE ARTHUR, THADDEUS Russo Ot 995.92 SEVERE SEPSIS 07/11/2014 THADDEUS LEWIS MD Ot V15.81 HX OF PAST NONCOMPLIANCE 07/11/2014 THADDEUS LEWIS MD Ot V15.82 HISTORY OF TOBACCO USE 07/11/2014 THADDEUS LEWIS MD Ot 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 07/11/2014 THADDEUS LEWIS MD Ot V85.41 BODY MASS INDEX 40.0-44.9, ADULT 09/20/2014 ANGELA CARDENAS Ot 272.4 09/20/2014 ANGELA CARDENAS Ot 397.0 09/20/2014 ANGELA CARDENAS Ot 401.9 09/20/2014 ANGELA CARDENAS Ot 424.0 09/20/2014 ANGELA CARDENAS Ot 428.0 10/24/2014 Ot 959.5 10/24/2014 Ot E000.8 10/24/2014 Ot E030 10/24/2014 Ot E849.0 10/24/2014 Ot E888.9 10/24/2014 Ot 401.9 10/24/2014 Ot 433.10 10/24/2014 Ot V72.84 10/24/2014 Ot 401.9 10/24/2014 Ot 428.0 10/24/2014 Ot 401.9 10/24/2014 Ot 428.0 10/24/2014 LAKSHMI SALDIVAR MD Ot 397.0 10/24/2014 LAKSHMI SALDIVAR MD Ot 424.0 10/24/2014 LAKSHMI SALDIVAR MD Ot 428.0 10/24/2014 ANGELA CARDENAS Ot 272.4 10/24/2014 ANGELA CARDENAS Ot 401.9 10/24/2014 ANGELA CARDENAS Ot 428.0 10/24/2014 ANGELA CARDENAS Ot 496 10/24/2014 ANGELA CARDENAS Ot 272.4 10/24/2014 STAHL-DANIEL PA, ANGELA K Ot 397.0 10/24/2014 STAHL-DANIEL PA, ANGELA K Ot 401.9 10/24/2014 STAHL-DANIEL PA, ANGELA K Ot 424.0 10/24/2014 STAHL-DANIEL PA, ANGELA K Ot 428.0 10/27/2014 DEBBIE ARTHUR, THADDEUS Russo Ot 789.09 03/02/2015 STAHL-DANIEL PA, ANGELA K Ot 272.4 03/02/2015 STAHL-DANIEL PA, ANGELA K Ot 401.9 03/02/2015 STAHL-DANIEL PA, ANGELA K Ot 428.0 03/02/2015 STAHL-DANIEL PA, ANGELA K Ot 434.91 03/02/2015 STAHL-DANIEL PA, ANGELA K Ot 496 03/16/2015 STAHL-DANIEL PA, ANGELA K Ot 272.4 03/16/2015 STAHL-DANIEL PA, ANGELA K Ot 401.9 03/16/2015 STAHL-DANIEL PA, ANGELA K Ot 428.0 03/16/2015 STAHL-DANIEL PA, ANGELA K Ot 434.91 03/16/2015 STAHL-DANIEL PA, ANGELA K Ot 496 03/23/2015 STAHL-DANIEL PA, ANGELA K Ot 272.4 03/23/2015 STAHL-DANIEL PA, ANGELA K Ot 401.9 03/23/2015 STAHL-DANIEL PA, ANGELA K Ot 428.0 03/23/2015 STAHL-DANIEL PA, ANGELA K Ot 434.91 03/23/2015 STAHL-DANIEL PA, ANGELA K Ot 496 05/03/2015 JACLYN ARTHUR, SUJATHA Dutta Ot 723.1 05/12/2015 SUJATHA ANAYA MD Ot 723.1 05/13/2015 ALEKSANDER HAN Ot 729.5 PAIN IN LIMB 05/13/2015 ALEKSANDER HAN Ot 845.10 SPRAIN OF FOOT NOS 05/13/2015 ALEKSANDER HAN Ot E000.8 OTHER EXTERNAL CAUSE STATUS 05/13/2015 ALEKSANDER HAN Ot E001.0 ACTIVITIES INVOLVING WALKING, MARCHING A 05/13/2015 ALEKSANDER HAN Ot E927.2 EXCESSIVE PHYSICAL EXERTION 06/14/2015 SUJATHA ANAYA MD Ot 721.0 06/21/2015 SUJATHA AANYA MD Ot 721.0 07/08/2015 SUJATHA ANAYA MD Ot A41.9 SEPSIS, UNSPECIFIED ORGANISM 07/08/2015 SUJATHA ANAYA MD Ot I10 ESSENTIAL (PRIMARY) HYPERTENSION 07/08/2015 SUJATHA ANAYA MD Ot K04.7 PERIAPICAL ABSCESS WITHOUT SINUS 07/08/2015 SUJATHA ANAYA MD Ot N17.9 ACUTE KIDNEY FAILURE, UNSPECIFIED 07/08/2015 SUJATHA ANAYA MD Ot R65.20 SEVERE SEPSIS WITHOUT SEPTIC SHOCK 07/08/2015 SUJATHA ANAYA MD Ot Z86.73 PRSNL HX OF TIA (TIA), AND CEREB INFRC W 07/08/2015 SUJATHA ANAYA MD Ot Z87.891 PERSONAL HISTORY OF NICOTINE DEPENDENCE 07/08/2015 SUJATHA ANAYA MD Ot Z95.810 PRESENCE OF AUTOMATIC (IMPLANTABLE) CARD 08/16/2015 KERRI WOLF MD Ot M47.892 08/16/2015 KERRI WOLF MD Ot M50.20 08/16/2015 KERRI WOLF MD Ot Z79.899 08/17/2015 KERRI WOLF MD Ot M47.892 08/17/2015 KERRI WOLF MD Ot M50.20 08/17/2015 KERRI WOLF MD Ot Z79.899 11/23/2015 ALEKSANDER HAN Ot E86.9 VOLUME DEPLETION, UNSPECIFIED 11/23/2015 ALEKSANDER HAN Ot I44.0 ATRIOVENTRICULAR BLOCK, FIRST DEGREE 11/23/2015 ALEKSANDER HAN Ot I95.9 HYPOTENSION, UNSPECIFIED 11/23/2015 ALEKSANDER HAN Ot Z95.0 PRESENCE OF CARDIAC PACEMAKER 11/24/2015 ALEKSANDER HAN Ot E86.9 11/24/2015 ALEKSANDER HAN Ot I44.0 11/24/2015 ALEKSANDER HAN Ot I95.9 11/24/2015 ALEKSANDER HAN Ot Z95.0 12/18/2015 Ot R41.0 12/18/2015 Ot R41.0 03/27/2016 AMBROSE CLEMENTS ANGELA K Ot I50.22 CHRONIC SYSTOLIC (CONGESTIVE) HEART FAIL 03/28/2016 AMBROSE CLEMENTS ANGELA K Ot E78.2 MIXED HYPERLIPIDEMIA 03/28/2016 AMBROSE CLEMENTS ANGELA K Ot I10 ESSENTIAL (PRIMARY) HYPERTENSION 03/28/2016 AMBROSE CLEMENTS ANGELA K Ot I50.22 CHRONIC SYSTOLIC (CONGESTIVE) HEART FAIL 03/28/2016 AMBROSE CLEMENTS ANGELA K Ot 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 04/25/2016 AMBROSE CLEMENTS ANGELA K Ot E78.2 MIXED HYPERLIPIDEMIA 04/25/2016 AMBROSE CLEMENTS ANGELA K Ot I10 ESSENTIAL (PRIMARY) HYPERTENSION 04/25/2016 AMBROSE CLEMENTS ANGELA K Ot I50.22 CHRONIC SYSTOLIC (CONGESTIVE) HEART FAIL 04/25/2016 AMBROSE CLEMENTS ANGELA K Ot 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 05/06/2016 AMBROSE CLEMENTS ANGELA K Ot E78.2 MIXED HYPERLIPIDEMIA 05/06/2016 AMBROSE CLEMENTS ANGELA K Ot I10 ESSENTIAL (PRIMARY) HYPERTENSION 05/06/2016 AMBROSE CLEMENTS ANGELA K Ot I50.22 CHRONIC SYSTOLIC (CONGESTIVE) HEART FAIL 05/06/2016 AMBROSE CLEMENTS ANGELA K Ot 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 05/17/2016 LAKSHMI SALDIVAR MD Ot I10 ESSENTIAL (PRIMARY) HYPERTENSION 05/17/2016 LAKSHMI SALDIVAR MD Ot I50.22 CHRONIC SYSTOLIC (CONGESTIVE) HEART FAIL 05/21/2016 LAKSHMI SALDIVAR MD Ot I10 ESSENTIAL (PRIMARY) HYPERTENSION 05/21/2016 LAKSHMI SALDIVAR MD Ot I50.22 CHRONIC SYSTOLIC (CONGESTIVE) HEART FAIL 06/12/2016 LAKSHMI SALDIVAR MD Ot I10 ESSENTIAL (PRIMARY) HYPERTENSION 06/12/2016 LAKSHMI SALDIVAR MD Ot I50.22 CHRONIC SYSTOLIC (CONGESTIVE) HEART FAIL 06/13/2016 LAKSHMI SALDIVAR MD Ot I10 ESSENTIAL (PRIMARY) HYPERTENSION 06/13/2016 LAKSHMI SALDIVAR MD Ot I50.22 CHRONIC SYSTOLIC (CONGESTIVE) HEART FAIL 08/19/2016 Ot 401.9 HYPERTENSION NOS 08/19/2016 Ot 433.10 CAROTID ARTERY OCCLUSION W O CEREBRAL IN 08/19/2016 Ot V72.84 EXAM PRE- OPERATIVE NOS 08/19/2016 Ot 401.9 HYPERTENSION NOS 08/19/2016 Ot 428.0 CONGESTIVE HEART FAILURE NOS 08/19/2016 Ot 401.9 HYPERTENSION NOS 08/19/2016 Ot 428.0 CONGESTIVE HEART FAILURE NOS 08/19/2016 LAKSHMI SALDIVAR MD Ot 397.0 TRICUSPID VALVE DISEASE 08/19/2016 LAKSHMI SALDIVAR MD Ot 424.0 MITRAL VALVE DISORDER 08/19/2016 LAKSHMI SALDIVAR MD Ot 428.0 CONGESTIVE HEART FAILURE NOS 08/19/2016 ANGELA CARDENAS Ot 272.4 HYPERLIPIDEMIA NEC/NOS 08/19/2016 ANGELA CARDENAS Ot 401.9 HYPERTENSION NOS 08/19/2016 ANGELA CARDENAS Ot 428.0 CONGESTIVE HEART FAILURE NOS 08/19/2016 ANGELA CARDENAS Ot 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 08/19/2016 ANGELA CARDENAS Ot 272.4 HYPERLIPIDEMIA NEC/NOS 08/19/2016 ANGELA CARDENAS Ot 397.0 TRICUSPID VALVE DISEASE 08/19/2016 ANGELA CARDENAS Ot 401.9 HYPERTENSION NOS 08/19/2016 ANGELA CARDENAS Ot 424.0 MITRAL VALVE DISORDER 08/19/2016 ANGELA CARDENAS Ot 428.0 CONGESTIVE HEART FAILURE NOS 08/19/2016 DEBBIE ARTHUR, THADDEUS Russo Ot 789.09 ABDOMINAL PAIN, OTHER SPECIFIED SITE 08/19/2016 ANGELA CARDENAS Ot 272.4 HYPERLIPIDEMIA NEC/NOS 08/19/2016 ANGELA CARDENAS Ot 401.9 HYPERTENSION NOS 08/19/2016 ANGELA CARDNEAS Ot 428.0 CONGESTIVE HEART FAILURE NOS 08/19/2016 ANGELA CARDENAS Ot 434.91 CEREBRAL ART OCCLUSION NOS W CEREBRAL IN 08/19/2016 ANGELA CARDENAS Ot 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 08/19/2016 JACLYN ARTHUR, SUJATHA Dutta Ot 723.1 CERVICALGIA 08/19/2016 SUJATHA ANAYA MD Ot 721.0 CERVICAL SPONDYLOSIS 08/19/2016 KERRI WOLF MD Ot M47.892 OTHER SPONDYLOSIS, CERVICAL REGION 08/19/2016 KERRI WOLF MD Ot M50.20 OTHER CERVICAL DISC DISPLACEMENT, UNSP C 08/19/2016 KERRI WOLF MD Ot Z79.899 OTHER HALF-WAY (CURRENT) DRUG THERAPY 08/19/2016 Ot R41.0 DISORIENTATION, UNSPECIFIED 08/19/2016 ANGELA CARDENAS Ot E78.2 MIXED HYPERLIPIDEMIA 08/19/2016 ANGELA CARDENAS Ot I10 ESSENTIAL (PRIMARY) HYPERTENSION 08/19/2016 ANGELA CARDENAS Ot I50.22 CHRONIC SYSTOLIC (CONGESTIVE) HEART FAIL 08/19/2016 ANGELA CARDENAS Ot 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 08/19/2016 LAKSHMI SALDIVAR MD, Ot I10 ESSENTIAL (PRIMARY) HYPERTENSION 08/19/2016 LAKSHMI SALIDVAR MD Ot I50.22 CHRONIC SYSTOLIC (CONGESTIVE) HEART FAIL 08/20/2016 DMITRY MARRUFO APRN Ot M25.572 PAIN IN LEFT ANKLE AND JOINTS OF LEFT FO 09/12/2016 DMITRY MARRUFO APRN Ot M25.572 PAIN IN LEFT ANKLE AND JOINTS OF LEFT FO 09/19/2016 DMITRY MARRUFO APRN Ot M25.572 PAIN IN LEFT ANKLE AND JOINTS OF LEFT FO 11/04/2016 ERROL HERNANDES MD Ot M65.341 TRIGGER FINGER, RIGHT RING FINGER 11/04/2016 ERROL HERNANDES MD, Ot Z01.818 ENCOUNTER FOR OTHER PREPROCEDURAL EXAMIN 11/06/2016 ERROL HERNANDES MD Ot E11.9 TYPE 2 DIABETES MELLITUS WITHOUT COMPLIC 11/06/2016 ERROL HERNANDES MD, Ot E78.5 HYPERLIPIDEMIA, UNSPECIFIED 11/06/2016 ERROL HERNANDES MD Ot I10 ESSENTIAL (PRIMARY) HYPERTENSION 11/06/2016 ERROL HERNNADES MD Ot K21.9 GASTRO-ESOPHAGEAL REFLUX DISEASE WITHOUT 11/06/2016 ZAFUTA MD, ERROL P Ot M65.341 TRIGGER FINGER, RIGHT RING FINGER 11/06/2016 ERROL HERNANDES MD Ot Z79.899 OTHER VIBRATION ENGINEER (CURRENT) DRUG THERAPY 11/06/2016 ERROL HERNANDES MD Ot Z86.73 PRSNL HX OF TIA (TIA), AND CEREB INFRC W 11/07/2016 ERROL HERNANDES MD Ot M65.341 TRIGGER FINGER, RIGHT RING FINGER 11/07/2016 ERROL HERNANDES MD Ot Z01.818 ENCOUNTER FOR OTHER PREPROCEDURAL EXAMIN 11/07/2016 ERROL HERNANDES MD Ot E11.9 TYPE 2 DIABETES MELLITUS WITHOUT COMPLIC 11/07/2016 ERROL HERNANDES MD Ot E78.5 HYPERLIPIDEMIA, UNSPECIFIED 11/07/2016 ERROL HERNANDES MD Ot I10 ESSENTIAL (PRIMARY) HYPERTENSION 11/07/2016 ERROL HERNANDES MD Ot K21.9 GASTRO-ESOPHAGEAL REFLUX DISEASE WITHOUT 11/07/2016 ERROL HERNANDES MD Ot M65.341 TRIGGER FINGER, RIGHT RING FINGER 11/07/2016 ERROL HERNANDES MD Ot Z79.899 OTHER HALF-WAY (CURRENT) DRUG THERAPY 11/07/2016 ERROL HERNANDES MD Ot Z86.73 PRSNL HX OF TIA (TIA), AND CEREB INFRC W 11/12/2016 ERROL HERNANDES MD Ot E11.9 TYPE 2 DIABETES MELLITUS WITHOUT COMPLIC 11/12/2016 ERROL HERNANDES MD Ot E78.5 HYPERLIPIDEMIA, UNSPECIFIED 11/12/2016 ERROL HERNANDES MD Ot I10 ESSENTIAL (PRIMARY) HYPERTENSION 11/12/2016 ERROL HERNANDES MD Ot K21.9 GASTRO-ESOPHAGEAL REFLUX DISEASE WITHOUT 11/12/2016 ERROL HERNANDES MD Ot M65.341 TRIGGER FINGER, RIGHT RING FINGER 11/12/2016 ERROL HERNANDES MD Ot Z79.899 OTHER VIBRATION ENGINEER (CURRENT) DRUG THERAPY 11/12/2016 ERROL HERNANDES MD Ot Z86.73 PRSNL HX OF TIA (TIA), AND CEREB INFRC W 01/16/2017 REYNALDO MEJIA MD Ot T81.31XA DISRUPTION OF EXTERNAL OPERATION (SURGIC 01/17/2017 REYNALDO MEJIA MD Ot T81.31XA DISRUPTION OF EXTERNAL OPERATION (SURGIC 01/27/2017 ANGELA CARDENAS Ot E78.2 MIXED HYPERLIPIDEMIA 01/27/2017 ANGELA CARDENAS Ot I11.0 HYPERTENSIVE HEART DISEASE WITH HEART FA 01/27/2017 ANGELA CARDENAS Ot I48.0 PAROXYSMAL ATRIAL FIBRILLATION 01/27/2017 ANGELA CARDENAS Ot I50.22 CHRONIC SYSTOLIC (CONGESTIVE) HEART FAIL 01/30/2017 ROBERTO ARTHUR, REYNALDO Amor Ot T81.31XA DISRUPTION OF EXTERNAL OPERATION (SURGIC 02/07/2017 REYNALDO MEJIA MD Ot T81.31XA DISRUPTION OF EXTERNAL OPERATION (SURGIC 02/13/2017 ANGELA CARDENAS Ot E78.2 MIXED HYPERLIPIDEMIA 02/13/2017 ANGELA CARDENAS Ot I11.0 HYPERTENSIVE HEART DISEASE WITH HEART FA 02/13/2017 ANGELA CARDENAS Ot I48.0 PAROXYSMAL ATRIAL FIBRILLATION 02/13/2017 ANGELA CARDENAS Ot I50.22 CHRONIC SYSTOLIC (CONGESTIVE) HEART FAIL 02/24/2017 ANGELA CARDENAS Ot E78.2 MIXED HYPERLIPIDEMIA 02/24/2017 ANGELA CARDENAS Ot I11.0 HYPERTENSIVE HEART DISEASE WITH HEART FA 02/24/2017 ANGELA CARDENAS Ot I48.0 PAROXYSMAL ATRIAL FIBRILLATION 02/24/2017 ANGELA CARDENAS Ot I50.22 CHRONIC SYSTOLIC (CONGESTIVE) HEART FAIL 06/04/2017 AMOS NDIAYE DO Ot D12.6 BENIGN NEOPLASM OF COLON, UNSPECIFIED 06/04/2017 AMOS NDIAYE DO Ot E66.01 MORBID (SEVERE) OBESITY DUE TO EXCESS CA 06/04/2017 AMOS NDIAYE DO Ot E78.5 HYPERLIPIDEMIA, UNSPECIFIED 06/04/2017 AMOS NDIAYE DO Ot G47.33 OBSTRUCTIVE SLEEP APNEA (ADULT) (PEDIATR 06/04/2017 AMOS NDIAYE DO Ot I11.0 HYPERTENSIVE HEART DISEASE WITH HEART FA 06/04/2017 AMOS NDIAYE DO Ot I48.91 UNSPECIFIED ATRIAL FIBRILLATION 06/04/2017 AMOS NDIAYE DO Ot I50.9 HEART FAILURE, UNSPECIFIED 06/04/2017 AMOS NDIAYE DO Ot J44.9 CHRONIC OBSTRUCTIVE PULMONARY DISEASE, U 06/04/2017 AMOS NDIAYE DO Ot K57.30 DVRTCLOS OF LG INT W/O PERFORATION OR AB 06/04/2017 AMOS NDIAYE DO Ot K64.8 OTHER HEMORRHOIDS 06/04/2017 AMOS NDIAYE DO Ot Z12.11 ENCOUNTER FOR SCREENING FOR MALIGNANT NE 06/04/2017 AMOS NDIAYE DO Ot Z68.38 BODY MASS INDEX (BMI) 38.0-38.9, ADULT 06/04/2017 AMOS NDIAYE DO Ot Z79.01 HALF-WAY (CURRENT) USE OF ANTICOAGULANT 06/04/2017 AMOS NDIAYE DO Ot Z79.02 HALF-WAY (CURRENT) USE OF ANTITHROMBOTI 06/04/2017 AMOS NDIAYE DO Ot Z87.891 PERSONAL HISTORY OF NICOTINE DEPENDENCE 06/11/2017 AMOS NDIAYE DO Ot D12.6 BENIGN NEOPLASM OF COLON, UNSPECIFIED 06/11/2017 AMOS NDIAYE DO Ot E66.01 MORBID (SEVERE) OBESITY DUE TO EXCESS CA 06/11/2017 AMOS NDIAYE DO Ot E78.5 HYPERLIPIDEMIA, UNSPECIFIED 06/11/2017 AMOS NDIAYE DO Ot G47.33 OBSTRUCTIVE SLEEP APNEA (ADULT) (PEDIATR 06/11/2017 AMOS NDIAYE DO Ot I11.0 HYPERTENSIVE HEART DISEASE WITH HEART FA 06/11/2017 AMOS NDIAYE DO Ot I48.91 UNSPECIFIED ATRIAL FIBRILLATION 06/11/2017 AMOS NDIAYE DO Ot I50.9 HEART FAILURE, UNSPECIFIED 06/11/2017 AMOS NDIAYE DO Ot J44.9 CHRONIC OBSTRUCTIVE PULMONARY DISEASE, U 06/11/2017 AMOS NDIAYE DO Ot K57.30 DVRTCLOS OF LG INT W/O PERFORATION OR AB 06/11/2017 AMOS NDIAYE DO Ot K64.8 OTHER HEMORRHOIDS 06/11/2017 AMOS NDIAYE DO Ot Z12.11 ENCOUNTER FOR SCREENING FOR MALIGNANT NE 06/11/2017 AMOS NDIAYE DO Ot Z68.38 BODY MASS INDEX (BMI) 38.0-38.9, ADULT 06/11/2017 AMOS NDIAYE DO Ot Z79.01 HALF-WAY (CURRENT) USE OF ANTICOAGULANT 06/11/2017 AMOS NDIAYE DO Ot Z79.02 HALF-WAY (CURRENT) USE OF ANTITHROMBOTI 06/11/2017 AMOS NDIAYE DO Ot Z87.891 PERSONAL HISTORY OF NICOTINE DEPENDENCE Procedures There is no data. Results Test Result Range Methicillin resistant Staphylococcus aureus (MRSA) screening culture - 10:05 Methicillin resistant Staphylococcus aureus (MRSA) screening culture NEG NRG Bacteria identification in isolate by anaerobe culture - 01/16/17 11:20 Bacteria identification in isolate by anaerobe culture NOANA NRG Gram stain microscopy - 01/16/17 11:20 GRAM STAIN RESULT NO WBC'S OR BACTERIA OBSERVED NRG Bacteria identification in wound by culture - 01/16/17 11:20 Bacteria identification in wound by culture [id number] NRG FREE TEXT EXTERNAL SENSITIVITY REPORTED 01/18/17 8:40 NRG QUANTITY OF GROWTH Moderate Growth NRG MRSA AGAR Screening test for MRSA is NEGATIVE (Final to follow) NRG Bacterial susceptibility panel - 01/16/17 11:20 Oxacillin susceptibility test by minimum inhibitory concentration 0.5 NRG Gentamicin susceptibility test by minimum inhibitory concentration < = NRG Clindamycin susceptibility test by minimum inhibitory concentration <= NRG Erythromycin susceptibility test by minimum inhibitory concentration <= NRG Trimethoprim/sulfamethoxazole susceptibility test by minimum inhibitoryconcentration <= NRG Vancomycin susceptibility test by minimum inhibitory concentration < = NRG Levofloxacin susceptibility test by minimum inhibitory concentration <= NRG Rifampin susceptibility test by minimum inhibitory concentration <= NRG Tetracycline susceptibility test by minimum inhibitory concentration <= NRG Fungus culture - 01/16/17 11:20 Fungus culture NG NRG Complete blood count (CBC) with automated white blood cell (WBC) differential - 01/16/17 11:58 Blood leukocytes automated count (number/volume) 6.3 10*3/uL 4.3-11.0 Blood erythrocytes automated count (number/volume) 4.10 10*6/uL 4.35-5.85 Venous blood hemoglobin measurement (mass/volume) 12.6 g/dL 13.3-17.7 Blood hematocrit (volume fraction) 38 % 40-54 Automated erythrocyte mean corpuscular volume 93 [foz_us] 80-99 Automated erythrocyte mean corpuscular hemoglobin (mass per erythrocyte) 31 pg 25-34 Automated erythrocyte mean corpuscular hemoglobin concentration measurement ( mass/volume) 33 g/dL 32-36 Automated erythrocyte distribution width ratio 14.7 % 10.0-14.5 Automated blood platelet count (count/volume) 247 10*3/uL 130-400 Automated blood platelet mean volume measurement 8.9 [foz_us] 7.4-10.4 Automated blood neutrophils/100 leukocytes 62 % 42-75 Automated blood lymphocytes/100 leukocytes 23 % 12-44 Blood monocytes/100 leukocytes 11 % 0-12 Automated blood eosinophils/100 leukocytes 4 % 0-10 Automated blood basophils/100 leukocytes 1 % 0-10 Blood neutrophils automated count (number/volume) 3.9 10*3 1.8-7.8 Blood lymphocytes automated count (number/volume) 1.4 10*3 1.0-4.0 Blood monocytes automated count (number/volume) 0.7 10*3 0.0-1.0 Automated eosinophil count 0.2 10*3/uL 0.0-0.3 Automated blood basophil count (count/volume) 0.0 10*3/uL 0.0-0.1 Erythrocyte sedimentation rate by westergren method - 01/16/17 11:58 Erythrocyte sedimentation rate by westergren method 18 mm 0-30 Encounters ACCT No. Visit Date/Time Discharge Status Pt. Type Provider Facility Loc./Unit Complaint [id number] 06/04/2017 06:51:00 06/04/2017 09:40:00 DIS Outpatient AMOS NDIAYE DO [facility] ENDO SCREENING [id number] 05/30/2017 05:33:00 05/30/2017 09:16:00 DIS Outpatient AMOS NDIAYE DO [facility] PREOP SCREENING COLONOSCOPY [id number] 01/30/2017 10:40:00 01/30/2017 16:00:00 DIS Outpatient REYNALDO MEJIA MD [facility] WOUNDCARE [id number] 01/24/2017 12:31:00 01/24/2017 23:59:59 CLS Outpatient ANGELA CARDENAS [facility] CARD I48.0 AFIB, I50.22 CHF [id number] 01/16/2017 11:40:00 01/16/2017 23:59:59 CLS Outpatient ROBERTO ARTHUR, REYNALDO Amor [facility] LAB T81.31XA [id number] 11/06/2016 07:33:00 11/06/2016 10:39:00 DIS [facility] TRIGGER SYNDROME [id number] 11/01/2016 09:17:00 11/01/2016 10:20:00 DIS Outpatient ERROL HERNANDES MD [facility] PREOP RIGHT RING FINGER TRIGGER SYNDROME [id number] 08/19/2016 13:43:00 08/19/2016 23:59:59 CLS Outpatient DMITRY MARRUFO APRN [facility] RAD LEFT ANKLE PAIN [id number] 05/17/2016 09:12:00 05/17/2016 23:59:59 CLS Outpatient LAKSHMI SALDIVAR MD [facility] CARD I50.22 [id number] 03/27/2016 13:27:00 03/27/2016 23:59:59 CLS Outpatient ANGELA CARDENAS [facility] CARD CHF,CAROTID ARTERY STENOSIS,HTN,HLP [id number] 11/23/2015 11:40:00 11/23/2015 17:25:00 DIS Emergency ALEKSANDER HAN [facility] ER LOW BLOOD PRESSURE/ DIZZINESS [id number] 07/06/2015 12:46:00 07/08/2015 15:00:00 DIS Inpatient SUJATHA ANAYA MD [facility] 4TH SEPSIS-LIKELY DENTAL SOURCE [id number] 07/03/2015 13:00:00 07/03/2015 23:59:59 CLS Outpatient KERRI WOLF MD [facility] CARD DDD [id number] 05/25/2015 12:26:00 05/25/2015 23:59:59 CLS Outpatient SUJATHA ANAYA MD [facility] RAD NECK PAIN LEFT ARM NUMBNESS [id number] 05/13/2015 11:53:00 05/13/2015 14:07:00 DIS Emergency ALEKSANDER HAN [facility] ER R AND L FOOT PAIN [id number] 04/10/2015 10:57:00 04/10/2015 23:59:59 CLS Outpatient SUJATHA ANAYA MD [facility] RAD NECK PAIN,STIFFNESS [id number] 02/23/2015 13:40:00 02/23/2015 23:59:59 CLS Outpatient ANGELA CARDENAS [facility] CARD CHF,COPD,CVA ,HTN [id number] 10/24/2014 12:21:00 10/24/2014 23:59:59 CLS Outpatient THADDEUS LEWIS MD [facility] RAD LT SIDED ABD PAIN [id number] 08/17/2014 07:45:00 08/17/2014 23:59:59 CLS Outpatient ANGELA CARDENAS [facility] CARD CHS,COPD,HTN ,HLP [id number] 07/08/2014 15:48:00 07/11/2014 11:15:00 DIS Inpatient THADEDUS LEWIS MD [facility] CSD HYPOTENSION RENAL FAILURE [id number] 06/13/2014 12:46:00 06/13/2014 23:59:59 CLS Outpatient ANGELA CARDENAS [facility] CARD CHF,COPD,HTN ,HLP [id number] 07/29/2013 08:41:00 07/29/2013 23:59:59 CLS Outpatient LAKSHMI SALDIVAR MD [facility] CARD CHF [id number] 05/07/2013 12:12:00 05/10/2013 10:50:00 DIS Inpatient LUCRECIA SANDHU MD [facility] SURGICAL SMALL BOWEL OBSTRUCTION [id number] 12/15/2015 09:21:00 Document Registration [id number] 10/24/2014 12:21:00 Document Registration [id number] 06/03/2012 08:55:00 Document Registration [id number] 05/13/2012 07:49:00 Document Registration [id number] 05/01/2012 11:21:00 Document Registration [id number] 02/11/2012 07:24:00 Document Registration [id number] 02/07/2012 08:08:00 Document Registration [id number] 12/16/2011 10:51:00 Document Registration [id number] 09/05/2011 21:16:00 Document Registration [id number] 08/29/2009 10:29:00 Document Registration
== END 2017-11-23 22:18 | disposition home or self-care (01) ==
LOC: EDUNIT# 18:32 → ER 18:34
DX: S09.90XA Unspecified injury of head, initial encounter (principal); R05 Cough; G47.30 Sleep apnea, unspecified; E78.00 Pure hypercholesterolemia, unspecified; G43.909 Migraine, unspecified, not intractable, without status migrainosus; Z86.010 Personal history of colon polyps; Z87.19 Personal history of other diseases of the digestive system; Z82.49 Family history of ischemic heart disease and other diseases of the circulatory system; Z79.01 Long term (current) use of anticoagulants; Z86.73 Personal history of transient ischemic attack (TIA), and cerebral infarction without residual deficits; Z88.0 Allergy status to penicillin; Z88.1 Allergy status to other antibiotic agents; Z88.5 Allergy status to narcotic agent; Z88.6 Allergy status to analgesic agent; Z87.891 Personal history of nicotine dependence; Z90.49 Acquired absence of other specified parts of digestive tract; Z95.810 Presence of automatic (implantable) cardiac defibrillator; Z95.5 Presence of coronary angioplasty implant and graft; W01.198A Fall on same level from slipping, tripping and stumbling with subsequent striking against other object, initial encounter; Y92.22 Religious institution as the place of occurrence of the external cause
CPT/HCPCS: 36415; 70450; 71046; 72125; 80053; 85025; 87804

== ENCOUNTER 2018-01-07 10:17 | Day surgery (SDC) | payer MEDICARE ==
[~2018-01-07] VITALS: Ht 172.7 cm; Wt 113.4 kg
[~2018-01-07 10:17] MED LIST changes: +FINA5TAB6 PO; +SACU1TAB PO; +TAMS0.4C2 PO
--- OUTSIDE RECORDS SUMMARY | 2018-01-07 10:21 | XMS REPORT | Continuity of Care Document ---
Author Author [facility] Organization [facility] Address Unknown Phone Unavailable Allergies Active Description Code Type Severity Reaction Onset Reported/Identified Relationship to Patient Clinical Status Yes codeine [id number] Drug Allergy Severe HIVES 02/07/2012 Yes amoxicillin [id number] Drug Allergy Severe N/A 07/06/2015 Yes Penicillins [id number] Drug Allergy Severe N/A 07/06/2015 Yes ibuprofen [id number] Drug Allergy Moderate ANKLES SWELL 11/01/2016 Medications [...] NOS 06/03/2012 Ot 414.01 CORONARY ATHEROSCLEROSIS OF [place] CORON 06/03/2012 Ot 425.4 PRIM CARDIOMYOPATHY NEC [...] MD Ot 427.31 ATRIAL FIBRILLATION 05/10/2013 LUCRECIA SANDHU MD Ot 553.20 VENTRAL HERNIA NOS 05/10/2013 LUCRECIA SANDHU MD Ot 560.9 INTESTINAL OBSTRUCT NOS 05/10/2013 LUCRECIA SANDHU MD Ot 562.10 DIVERTICULOSIS COLON (W/O MENT OF HEMORR 05/10/2013 LUCRECIA SANDHU MD Ot 780.57 UNSPECIFIED SLEEP APNEA [...] LEWIS MD Ot 414.01 CORONARY ATHEROSCLEROSIS OF [place] CORON 07/11/2014 THADDEUS LEWIS MD Ot 414.8 [...] 10/24/2014 LAKSHMI SALDIVAR MD Ot 428.0 10/24/2014 AGNELA CARDENAS Ot 272.4 10/24/2014 ANGELA CARDENAS Ot [...] SUJATHA ANAYA MD Ot 721.0 06/21/2015 SUJATHA ANAYA MD Ot 721.0 07/08/2015 SUJATHA ANAYA MD [...] 08/19/2016 KERRI WOLF MD Ot Z79.899 OTHER [facility]DC (CURRENT) DRUG THERAPY 08/19/2016 Ot R41.0 DISORIENTATION, UNSPECIFIED 08/19/2016 ANGELA CARDENAS Ot E78.2 MIXED HYPERLIPIDEMIA 08/19/2016 ANGELA CARDENAS Ot I10 ESSENTIAL (PRIMARY) HYPERTENSION 08/19/2016 ANGELA CARDENAS Ot I50.22 CHRONIC SYSTOLIC (CONGESTIVE) HEART FAIL 08/19/2016 ANGELA CARDENAS Ot 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 08/19/2016 LAKSHMI SALDIVAR MD, Ot I10 ESSENTIAL (PRIMARY) HYPERTENSION 08/19/2016 LAKSHMI SALDIVAR MD Ot I50.22 CHRONIC SYSTOLIC [...] Ot I10 ESSENTIAL (PRIMARY) HYPERTENSION 11/06/2016 ERROL HERNANDES MD Ot K21.9 GASTRO-ESOPHAGEAL REFLUX DISEASE WITHOUT 11/06/2016 ZAFUTA MD, ERROL P Ot M65.341 TRIGGER FINGER, RIGHT RING FINGER 11/06/2016 ERROL HERNANDES MD Ot Z79.899 OTHER ADMINISTRATIVE UNDERWRITER (CURRENT) DRUG THERAPY 11/06/2016 ERROL HERNANDES MD [...] 11/07/2016 ERROL HERNANDES MD Ot Z79.899 OTHER [facility]DC (CURRENT) DRUG THERAPY 11/07/2016 ERROL HERNANDES MD [...] 11/12/2016 ERROL HERNANDES MD Ot Z79.899 OTHER ADMINISTRATIVE UNDERWRITER (CURRENT) DRUG THERAPY 11/12/2016 ERROL HERNANDES MD Ot Z86.73 PRSNL HX OF TIA (TIA), AND CEREB INFRC W 01/16/2017 REYNALDO MEJIA MD Ot T81.31XA DISRUPTION OF EXTERNAL OPERATION (SURGIC 01/17/2017 REYNALDO MEJIA MD Ot T81.31XA DISRUPTION OF EXTERNAL OPERATION (SURGIC 01/27/2017 ANGELA CARDENAS Ot E78.2 MIXED HYPERLIPIDEMIA 01/27/2017 ANGELA CARDENAS Ot I11.0 HYPERTENSIVE HEART DISEASE WITH HEART FA 01/27/2017 ANGEAL CARDENAS Ot I48.0 PAROXYSMAL ATRIAL FIBRILLATION 01/27/2017 [...] ADULT 06/04/2017 AMOS NDIAYE DO Ot Z79.01 FDC (CURRENT) USE OF ANTICOAGULANT 06/04/2017 AMOS NDIAYE DO Ot Z79.02 FDC (CURRENT) USE OF ANTITHROMBOTI 06/04/2017 AMOS NDIAYE [...] ADULT 06/11/2017 AMOS NDIAYE DO Ot Z79.01 FDC (CURRENT) USE OF ANTICOAGULANT 06/11/2017 AMOS NDIAYE DO Ot Z79.02 FDC (CURRENT) USE OF ANTITHROMBOTI 06/11/2017 AMOS NDIAYE DO Ot Z87.891 PERSONAL HISTORY OF NICOTINE DEPENDENCE 11/23/2017 RAEGAN HERBERT Ot E78.00 PURE HYPERCHOLESTEROLEMIA, UNSPECIFIED 11/23/2017 RAEGAN HERBERT Ot G43.909 MIGRAINE, UNSP, NOT INTRACTABLE, WITHOUT 11/23/2017 RAEGAN HERBERT Ot G47.30 SLEEP APNEA, UNSPECIFIED 11/23/2017 RAEGAN HERBERT Ot R05 COUGH 11/23/2017 RAEGAN HERBERT Ot R53.1 WEAKNESS 11/23/2017 RAEGAN HERBERT Ot S09.90XA UNSPECIFIED INJURY OF HEAD, INITIAL ENCO 11/23/2017 RAEGAN HERBERT Ot W01.198A FALL SAME LEV FROM SLIP/TRIP W STRIKE AG 11/23/2017 RAEGAN HERBERT Ot Y92.[address] 11/23/2017 RAEGAN HERBERT Ot Z79.01 FDC (CURRENT) USE OF ANTICOAGULANT 11/23/2017 RAEGAN HERBERT Ot Z82.49 FAMILY HX OF ISCHEM HEART DIS AND OTH DI 11/23/2017 RAEGAN HERBERT Ot Z86.010 PERSONAL HISTORY OF COLONIC POLYPS 11/23/2017 RAEGAN HERBERTP Ot Z86.73 PRSNL HX OF TIA (TIA), AND CEREB INFRC W 11/23/2017 RAEGAN HERBERTP Ot Z87.19 PERSONAL HISTORY OF OTHER DISEASES OF TH 11/23/2017 RAEGAN HERBERT Ot Z87.891 PERSONAL HISTORY OF NICOTINE DEPENDENCE 11/23/2017 RAEGAN HERBERTP Ot Z88.0 ALLERGY STATUS TO PENICILLIN 11/23/2017 RAEGAN HERBERTP Ot Z88.1 ALLERGY STATUS TO OTHER ANTIBIOTIC AGENT 11/23/2017 RAEGAN HERBERTP Ot Z88.5 ALLERGY STATUS TO NARCOTIC AGENT STATUS 11/23/2017 RAEGAN HERBERTP Ot Z88.6 ALLERGY STATUS TO ANALGESIC AGENT STATUS 11/23/2017 RAEGAN HERBERTP Ot Z90.49 ACQUIRED ABSENCE OF OTHER SPECIFIED PART 11/23/2017 RAEGAN HERBERTP Ot Z95.5 PRESENCE OF CORONARY ANGIOPLASTY IMPLANT 11/23/2017 RAEGAN HERBERT PROGRAM PROPOSALS COORDINATOR Ot Z95.810 PRESENCE OF AUTOMATIC (IMPLANTABLE) CARD 11/25/2017 RAEGAN HERBERTP Ot E78.00 PURE HYPERCHOLESTEROLEMIA, UNSPECIFIED 11/25/2017 PIEDADRAEGAN EstradaP Ot G43.909 MIGRAINE, UNSP, NOT INTRACTABLE, WITHOUT 11/25/2017 PIEDADRAEGAN EstradaP Ot G47.30 SLEEP APNEA, UNSPECIFIED 11/25/2017 RAEGAN HERBERTP Ot R05 COUGH 11/25/2017 PIEDADRAEGAN EstradaP Ot R53.1 WEAKNESS 11/25/2017 PIEDADRAEGAN EstradaP Ot S09.90XA UNSPECIFIED INJURY OF HEAD, INITIAL ENCO 11/25/2017 RAEGAN HERBERTP Ot W01.198A FALL SAME LEV FROM SLIP/TRIP W STRIKE AG 11/25/2017 RAEGAN HERBERTP Ot Y92.[address] 11/25/2017 RAEGAN HERBERTP Ot Z79.01 FDC (CURRENT) USE OF ANTICOAGULANT 11/25/2017 RAEGAN HERBERT PROGRAM PROPOSALS COORDINATOR Ot Z82.49 FAMILY HX OF ISCHEM HEART DIS AND OTH DI 11/25/2017 RAEGAN HERBERTP Ot Z86.010 PERSONAL HISTORY OF COLONIC POLYPS 11/25/2017 RAEGAN HERBERT PROGRAM PROPOSALS COORDINATOR Ot Z86.73 PRSNL HX OF TIA (TIA), AND CEREB INFRC W 11/25/2017 RAEGAN HERBERT PROGRAM PROPOSALS COORDINATOR Ot Z87.19 PERSONAL HISTORY OF OTHER DISEASES OF TH 11/25/2017 RAEGAN HERBERTP Ot Z87.891 PERSONAL HISTORY OF NICOTINE DEPENDENCE 11/25/2017 RAEGAN HERBERT PROGRAM PROPOSALS COORDINATOR Ot Z88.0 ALLERGY STATUS TO PENICILLIN 11/25/2017 PIEDAD RAEGAN PROGRAM PROPOSALS COORDINATOR Ot Z88.1 ALLERGY STATUS TO OTHER ANTIBIOTIC AGENT 11/25/2017 RAEGAN HERBERT PROGRAM PROPOSALS COORDINATOR Ot Z88.5 ALLERGY STATUS TO NARCOTIC AGENT STATUS 11/25/2017 PIEDAD RAEGAN PROGRAM PROPOSALS COORDINATOR Ot Z88.6 ALLERGY STATUS TO ANALGESIC AGENT STATUS 11/25/2017 RAEGAN HERBERT PROGRAM PROPOSALS COORDINATOR Ot Z90.49 ACQUIRED ABSENCE OF OTHER SPECIFIED PART 11/25/2017 RAEGAN HERBERTP Ot Z95.5 PRESENCE OF CORONARY ANGIOPLASTY IMPLANT 11/25/2017 RAEGAN HERBERT PROGRAM PROPOSALS COORDINATOR Ot Z95.810 PRESENCE OF AUTOMATIC (IMPLANTABLE) CARD 11/29/2017 PIEDADRAEGAN EstradaP Ot E78.00 PURE HYPERCHOLESTEROLEMIA, UNSPECIFIED 11/29/2017 PIEDAD, RAEGAN ARIZMENDIP Ot G43.909 MIGRAINE, UNSP, NOT INTRACTABLE, WITHOUT 11/29/2017 PIEDAD, RAEGAN ARIZMENDIP Ot G47.30 SLEEP APNEA, UNSPECIFIED 11/29/2017 PIEDADRAEGAN EstradaP Ot R05 COUGH 11/29/2017 PIEDADRAEGAN EstradaP Ot R53.1 WEAKNESS 11/29/2017 PIEDADRAEGAN Estrada PROGRAM PROPOSALS COORDINATOR Ot S09.90XA UNSPECIFIED INJURY OF HEAD, INITIAL ENCO 11/29/2017 PIEDADRAEGAN EstradaP Ot W01.198A FALL SAME LEV FROM SLIP/TRIP W STRIKE AG 11/29/2017 PIEDADRAEGAN EstradaP Ot Y92.[address] 11/29/2017 PIEDADRAEGAN EstradaP Ot Z79.01 FDC (CURRENT) USE OF ANTICOAGULANT 11/29/2017 RAEGAN HERBERT PROGRAM PROPOSALS COORDINATOR Ot Z82.49 FAMILY HX OF ISCHEM HEART DIS AND OTH DI 11/29/2017 PIEDAD, RAEAGN PROGRAM PROPOSALS COORDINATOR Ot Z86.010 PERSONAL HISTORY OF COLONIC POLYPS 11/29/2017 PIEDADRAEGAN Estrada PROGRAM PROPOSALS COORDINATOR Ot Z86.73 PRSNL HX OF TIA (TIA), AND CEREB INFRC W 11/29/2017 PIEDAD, RAEGAN PROGRAM PROPOSALS COORDINATOR Ot Z87.19 PERSONAL HISTORY OF OTHER DISEASES OF TH 11/29/2017 PIEDADRAEGAN Estrada PROGRAM PROPOSALS COORDINATOR Ot Z87.891 PERSONAL HISTORY OF NICOTINE DEPENDENCE 11/29/2017 RAEGAN HERBERT PROGRAM PROPOSALS COORDINATOR Ot Z88.0 ALLERGY STATUS TO PENICILLIN 11/29/2017 PIEDAD, RAEGAN PROGRAM PROPOSALS COORDINATOR Ot Z88.1 ALLERGY STATUS TO OTHER ANTIBIOTIC AGENT 11/29/2017 PIEDAD, RAEGAN PROGRAM PROPOSALS COORDINATOR Ot Z88.5 ALLERGY STATUS TO NARCOTIC AGENT STATUS 11/29/2017 PIEDAD, RAEGAN PROGRAM PROPOSALS COORDINATOR Ot Z88.6 ALLERGY STATUS TO ANALGESIC AGENT STATUS 11/29/2017 PIEDADRAEGAN Estrada PROGRAM PROPOSALS COORDINATOR Ot Z90.49 ACQUIRED ABSENCE OF OTHER SPECIFIED PART 11/29/2017 PIEDAD, RAEGAN PROGRAM PROPOSALS COORDINATOR Ot Z95.5 PRESENCE OF CORONARY ANGIOPLASTY IMPLANT 11/29/2017 RAEGAN HERBERT PROGRAM PROPOSALS COORDINATOR Ot Z95.810 PRESENCE OF AUTOMATIC (IMPLANTABLE) CARD 01/06/2018 AMOS NDIAYE DO Ot Z01.818 ENCOUNTER FOR OTHER PREPROCEDURAL EXAMIN Procedures There is no data. Results Test [...] 11:20 Bacteria identification in wound by culture [id number] NRG FREE TEXT EXTERNAL SENSITIVITY REPORTED 01/18/17 [...] rate by westergren method 18 mm 0-30 Influenza virus A and B antigen detection - 11/23/17 21:03 FLU RESULT NEGATIVE FOR INFLUENZA A AND B ANTIGENS BY [facility] Complete blood count (CBC) with automated white blood cell (WBC) differential - 11/23/17 21:12 Blood leukocytes automated count (number/volume) 5.2 10*3/uL 4.3-11.0 Blood erythrocytes automated count (number/volume) 4.56 10*6/uL 4.35-5.85 Venous blood hemoglobin measurement (mass/volume) 14.3 g/dL 13.3-17.7 Blood hematocrit (volume fraction) 43 % 40-54 Automated erythrocyte mean corpuscular volume 94 [foz_us] 80-99 Automated erythrocyte mean corpuscular hemoglobin (mass per erythrocyte) 31 pg 25-34 Automated erythrocyte mean corpuscular hemoglobin concentration measurement ( mass/volume) 34 g/dL 32-36 Automated erythrocyte distribution width ratio 13.7 % 10.0-14.5 Automated blood platelet count (count/volume) 184 10*3/uL 130-400 Automated blood platelet mean volume measurement 9.5 [foz_us] 7.4-10.4 Automated blood neutrophils/100 leukocytes 68 % 42-75 Automated blood lymphocytes/100 leukocytes 19 % 12-44 Blood monocytes/100 leukocytes 12 % 0-12 Automated blood eosinophils/100 leukocytes 1 % 0-10 Automated blood basophils/100 leukocytes 0 % 0-10 Blood neutrophils automated count (number/volume) 3.5 10*3 1.8-7.8 Blood lymphocytes automated count (number/volume) 1.0 10*3 1.0-4.0 Blood monocytes automated count (number/volume) 0.6 10*3 0.0-1.0 Automated eosinophil count 0.1 10*3/uL 0.0-0.3 Automated blood basophil count (count/volume) 0.0 10*3/uL 0.0-0.1 Comprehensive metabolic panel - 11/23/17 21:12 Serum or plasma sodium measurement (moles/volume) 139 mmol/L 135-145 Serum or plasma potassium measurement (moles/volume) 4.6 mmol/L 3.6-5.0 Serum or plasma chloride measurement (moles/volume) 106 mmol/L 98-107 Carbon dioxide 22 mmol/L 21-32 Serum or plasma anion gap determination (moles/volume) 11 mmol/L 5-14 Serum or plasma urea nitrogen measurement (mass/volume) 31 mg/dL 7-18 Serum or plasma creatinine measurement (mass/volume) 1.55 mg/dL 0.60-1.30 Serum or plasma urea nitrogen/creatinine mass ratio 20 NRG Serum or plasma creatinine measurement with calculation of estimated glomerular filtration rate 44 NRG Serum or plasma glucose measurement (mass/volume) 93 mg/dL 70-105 Serum or plasma calcium measurement (mass/volume) 9.1 mg/dL 8.5-10.1 Serum or plasma total bilirubin measurement (mass/volume) 0.4 mg/dL 0.1-1.0 Serum or plasma alkaline phosphatase measurement (enzymatic activity/volume) 68 U/L 40-136 Serum or plasma aspartate aminotransferase measurement (enzymatic activity/ volume) 23 U/L 5-34 Serum or plasma alanine aminotransferase measurement (enzymatic activity/volume ) 20 U/L 0-55 Serum or plasma protein measurement (mass/volume) 7.0 g/dL 6.4-8.2 Serum or plasma albumin measurement (mass/volume) 3.9 g/dL 3.2-4.5 Encounters ACCT No. Visit Date/Time Discharge Status Pt. Type Provider Facility Loc./Unit Complaint [id number] 01/05/2018 05:42:00 01/05/2018 12:14:00 DIS Outpatient AMOS NDIAYE DO [facility] PREOP SKIN LESIONS BILATERAL EARS [id number] 11/23/2017 18:34:00 11/23/2017 22:18:00 DIS Emergency RAEGAN HERBERT [facility] ER DIZZINESS,SYNCOPE [id number] 06/04/2017 06:51:00 06/04/2017 09:40:00 DIS Outpatient AMOS NDIAYE DO [facility] ENDO SCREENING [id number] 05/30/2017 05:33:00 05/30/2017 09:16:00 DIS Outpatient AMOS NDIAYE DO [facility] PREOP SCREENING COLONOSCOPY [id number] 01/30/2017 10:40:00 01/30/2017 16:00:00 DIS Outpatient REYNALDO MEJIA MD [facility] WOUNDCARE [id number] 01/24/2017 12:31:00 01/24/2017 23:59:59 CLS Outpatient ANGELA CARDENAS [facility] CARD I48.0 AFIB, I50.22 CHF [id number] 01/16/2017 11:40:00 01/16/2017 23:59:59 CLS Outpatient REYNALDO MEJIA MD [facility] LAB T81.31XA [id number] 11/06/2016 07:33:00 11/06/2016 10:39:00 DIS Outpatient ERROL HERNANDES MD [facility] SDC RIGHT RING FINGER TRIGGER SYNDROME [id number] 11/01/2016 09:17:00 11/01/2016 10:20:00 DIS Outpatient ERROL HERNANDES MD [facility] PREOP RIGHT RING FINGER TRIGGER SYNDROME [id number] 08/19/2016 13:43:00 08/19/2016 23:59:59 CLS Outpatient DMITRY MARRUFO APRN [facility] RAD LEFT ANKLE PAIN [id number] 05/17/2016 09:12:00 05/17/2016 23:59:59 CLS Outpatient LAKSHMI SALDIVAR MD [facility] CARD I50.22 [id number] 03/27/2016 13:27:00 03/27/2016 23:59:59 CLS Outpatient ANGELA CARDENAS [facility] CHF,CAROTID ARTERY STENOSIS,HTN,HLP [id number] 11/23/2015 11:40:00 11/23/2015 17:25:00 DIS Emergency ALEKSANDER HAN [facility] ER LOW BLOOD PRESSURE/ DIZZINESS [id number] 07/06/2015 12:46:00 07/08/2015 15:00:00 DIS Inpatient SUJATHA ANAYA MD [facility] 4TH SEPSIS-LIKELY DENTAL SOURCE [id number] 07/03/2015 13:00:00 07/03/2015 23:59:59 CLS Outpatient KERRI WOLF MD [facility] DDD [id number] 05/25/2015 12:26:00 05/25/2015 23:59:59 CLS Outpatient SUJATHA ANAYA MD [facility] RAD NECK PAIN LEFT ARM NUMBNESS [id number] 05/13/2015 11:53:00 05/13/2015 14:07:00 DIS Emergency ALEKSANDER HAN [facility] ER R AND L FOOT PAIN [id number] 04/10/2015 10:57:00 04/10/2015 23:59:59 CLS Outpatient SUJATHA ANAYA MD [facility] RAD NECK PAIN,STIFFNESS [id number] 02/23/2015 13:40:00 02/23/2015 23:59:59 CLS Outpatient ANGELA CARDENAS [facility] CARD CHF,COPD,CVA ,HTN [id number] 10/24/2014 12:21:00 10/24/2014 23:59:59 CLS Outpatient THADDEUS LEWIS MD [facility] RAD LT SIDED ABD PAIN [id number] 08/17/2014 07:45:00 08/17/2014 23:59:59 CLS Outpatient ANGELA CARDENAS [facility] CHS,COPD,HTN ,HLP [id number] 07/08/2014 15:48:00 07/11/2014 11:15:00 DIS Inpatient DEBBIE ARTHUR, THADDEUS Russo [facility] CSD HYPOTENSION RENAL FAILURE [id number] 06/13/2014 12:46:00 06/13/2014 23:59:59 CLS Outpatient AMBROSE CLEMENTS, ANGELA K [facility] CARD CHF,COPD,HTN ,HLP [id number] 07/29/2013 08:41:00 07/29/2013 23:59:59 CLS Outpatient JANNA ARTHUR, LAKSHMI Razo [facility] CARD CHF [id number] 05/07/2013 12:12:00 05/10/2013 10:50:00 DIS Inpatient EDSON ARTHUR, LUCRECIA Russo [facility] SURGICAL SMALL BOWEL OBSTRUCTION [id number] 01/07/2018 12:00:00 PEN Preadmit AMOS NDIAYE DO [facility] SDC SKIN LESIONS BILATERAL EARS [id number] 12/15/2015 09:21:00 Document Registration [id number] 10/24/2014 12:21:00 Document Registration [id number] 06/03/2012 08:55:00 Document Registration [id number] 05/13/2012 07:49:00 Document Registration [id number] 05/01/2012 11:21:00 Document Registration [id number] 02/11/2012 07:24:00 Document Registration [id number] 02/07/2012 08:08:00 Document Registration [id number] 12/16/2011 10:51:00 Document Registration [id number] 09/05/2011 21:16:00 Document Registration [id number] 08/29/2009 10:29:00 Document Registration [id number] 05/25/2015 12:27:10 ACT Document Registration
[2018-01-07 10:25] VITALS: BP 145/79
[2018-01-07] MEDS ORDERED: LACTATED RINGERS 1,000 ML IV PRN (10:44)
--- NOTE | 2018-01-07 11:45 | Progress Note-Pre Operative ---
Pre-Operative Progress Note H&P Reviewed The H&P was reviewed, patient examined and no changes noted. Time Seen by Provider: 11:41 Date H&P Reviewed: Jan 07, 2018 Time H&P Reviewed: 11:44 Pre-Operative Diagnosis: B/L ear lesions AMOS NDIAYE DO Jan 07, 2018 11:45
[2018-01-07] MEDS ORDERED: LIDOCAINE PF 2% 5 ML (XYLOCAINE) VIAL ONE (11:48)
[2018-01-07] MEDS ORDERED: fentaNYL INJECTION 100 MCG/2 ML AMP ONE (11:48)
[2018-01-07] MEDS ORDERED: MIDAZOLAM 2 MG/2 ML (VERSED) VIAL ONE (11:48)
[2018-01-07] MEDS ORDERED: proPOfol 200 MG/20 ML (DIPRIVAN) VIAL IV ONE (11:48)
[2018-01-07] MEDS ORDERED: ONDANSETRON 4 MG/2 ML (SDV) Z0FRAN ONE (11:48)
[2018-01-07] MEDS ORDERED: SEVOFLURANE (ULTANE) 15 ML INHAL SOLN ONE ×2 (11:50→12:25)
[2018-01-07] MEDS ORDERED: LIDOCAINE 1% INJ 20 ML 20 ML VIAL ONE (11:51)
[2018-01-07] MEDS ORDERED: CLINDAMYCIN 600 MG/50 ML IVPB 50 ML IV ONE (12:45)
[2018-01-07] MEDS ORDERED: CLINDAMYCIN 600 MG/4ML (CLEOCIN) VIAL ONE (12:45)
[2018-01-07] MEDS ORDERED: morphine INJ 10 MG/ML 1ML (SYR OR VIAL) ONE (13:07)
[2018-01-07] MEDS: morphine INJ 10 MG/ML 1ML (SYR OR VIAL) IVP PRN ×2 (13:12→13:20)
--- NOTE | 2018-01-07 13:12 | Progress Note-Post Operative ---
Post-Operative Progess Note Surgeon (s)/Ged Tutor (s) Surgeon AMOS NDIAYE DO Ged Tutor: none Pre-Operative Diagnosis B/L ear lesions Post-Operative Diagnosis same pending pathology Procedure & Operative Findings Date of Procedure 01/07/18 Procedure Performed/Findings 1. Exc L ear lesion, 1.8 x0.8 cm incision 2. Shave excision R ear, 1.4 x 0.6 cm lesion Anesthesia Type LMA Estimated Blood Loss Estimated blood loss (mL): scant Specimens/Packing Specimens Removed B/L ear lesion AMOS NDIAYE DO Jan 07, 2018 13:12
--- NOTE | 2018-01-07 13:14 | Discharge Inst-Surgical ---
Discharge Inst-Surgical Depart Medication/Instructions New, Converted or Re-Newed RX: Other (pt can take home meds) Patient Instructions Follow up Appt: Make appointment for 1 week. Instructions: No strenuous activity. May shower in 24 hours, no tub bath or soaking. Use incentive spirometer at home as directed. No Smoking Skin/Wound Care: May remove bandages. Hold pressure for any bleeding. Symptoms to Report: Appetite Changes, Extremity Discoloration, Numbness/Tingling, Swelling Increased , Bleeding Excessive, Eyesight Changes, Pain Increased, Urine Color Change, Constipation(Persistent), Fever over 101 degree F, Pain/Pressure in chest, Urinating Difficulty, Cough Up/Vomit Blood, Heart Beat Irreg/Pounding, Pain/ Pressure in jaw, Cramps in feet or legs, Lightheadedness, Pain/Pressure in shoulder, Diarrhea(Persistent), Memory Changes Suddenly, Questions/Concerns, Weight gain consecutive days, Dizziness/Fainting, Nausea/Vomiting, Shortness of Breath, Weight gain over 2 pounds If questions or concerns contact your physician Or seek help at emergency department. Activity Driving Instructions: No Driving/Refer to Dr. Hernandez Discharge Diet: No Restrictions If Any Problems/Questions/Issu: Contact Your Physician, Go to Emergency Room Skin/Wound Care Infection Signs and Symptoms: Increased Redness, Foul Odor of Wound, Increased Drainage, Skin Itchy or Has a Rash, Increased Swelling, Temperature Above 101 F Bathing Instructions: AMOS Jamil DO Jan 07, 2018 13:14
[2018-01-07] MEDS ORDERED: ONDANSETRON 4 MG/2 ML (SDV) Z0FRAN IVP PRN (13:15)
[2018-01-07 13:40] VITALS: BP 120/65
--- NOTE | 2018-01-07 13:42 | Anesthesia-General Post-Op ---
General Patient Condition Mental Status/LOC: Same as Preop Cardiovascular: Satisfactory Nausea/Vomiting: Absent Respiratory: Satisfactory Pain: Controlled Complications: Absent Post Op Complications Complications None Follow Up Care/Instructions Patient Instructions None needed. Anesthesia/Patient Condition Patient Condition Patient is doing well, no complaints, stable vital signs, no apparent adverse anesthesia problems. No complications reported per nursing. JUANCARLOS PARKER CRNA Jan 07, 2018 13:42
[2018-01-07 14:10] VITALS: BP 133/73
[2018-01-07] MEDS ORDERED: HYDROcodone/APAP 10 MG/325 MG (LORTAB) TAB PO ONE (14:30)
[2018-01-07 14:40] VITALS: BP 132/69
[2018-01-07 15:10] VITALS: BP 132/69
--- NOTE | 2018-01-09 01:08 | OPERATIVE REPORT ---
DATE OF SERVICE: 01/07/2018 PREOPERATIVE DIAGNOSIS: Bilateral ear lesions. POSTOPERATIVE DIAGNOSIS: Bilateral ear lesions, pending pathology. PROCEDURES: 1. Wedge excision of left ear lesion 1.8 x 0.8 cm. 2. Shave excision of right ear mass 1.4 x 0.6 cm. SURGEON: Matthew Chou DO ICE PULLER: None. ANESTHESIA: General endotracheal tube by DISTRIBUTOR CLEANER. SPECIMEN: Ear mass, one from the right, one from the left. BLOOD LOSS: Scant. FLUIDS: Per anesthesia. POSTOPERATIVE CONDITION: Stable. INDICATION FOR PROCEDURE: The patient is a 77-year-old male who has lesions that were found on the left as a big crater and a big scab and that he would like to remove. Thinks it maybe a precancer or cancerous lesion. He also has one on the right side that was the way that looks like the one, that looks the way it started on the left side, and he would like both of these taken care of. FINDINGS: The patient had a shave excision on the right and a wedge resection on the left, both masses sent to pathology. PROCEDURE NOTE: After informed consent was obtained, the patient was brought to the operating room, placed on the operating table in supine position. He was sterilely prepped and draped in normal fashion. Started on the right side of the ear, infiltrated the edge of the ear on the upper portion with some local lidocaine and then made a shave excision, measured this at about 1.4 x 0.6 cm, passed off table and sent to pathology. Hemostasis obtained using Bovie electrocautery. I then turned to the left ear. Again, sterilely prepped and draped in normal fashion and again infiltrated with local, then made a wedge resection, measured about 1.8 x 0.8 cm, able to resect this and then attempted to close this, able close the upper portion of the incision with two 4-0 nylon sutures, but could not get the bottom portion of the incision to close, it could be kept ripping through the skin. I elected to just leave this slightly open and control with Bovie electrocautery. A pressure dressing was placed. The patient then transferred to recovery room in stable condition. Sponge, instruments, and needle counts were correct at the end of the case. Job ID: [id number] DocumentID: [id number] Dictated Date: 01/08/2018 14:58:23 Focusing Machine Operator Date: 01/09/2018 00:29:33 Dictated By: MATTHEW CHOU DO
== END 2018-01-07 15:10 | disposition home or self-care (01) ==
LOC: SDC 10:17
PROVIDERS: ATTEND Surgery
DX: L57.0 Actinic keratosis (principal); C44.229 Squamous cell carcinoma of skin of left ear and external auricular canal; Z11.2 Encounter for screening for other bacterial diseases; I11.0 Hypertensive heart disease with heart failure; I50.22 Chronic systolic (congestive) heart failure; R79.1 Abnormal coagulation profile; I25.10 Atherosclerotic heart disease of native coronary artery without angina pectoris; E78.5 Hyperlipidemia, unspecified; J44.9 Chronic obstructive pulmonary disease, unspecified; G47.33 Obstructive sleep apnea (adult) (pediatric)
CPT/HCPCS: 87081; 88305; 94664

== ENCOUNTER → 2018-05-20 | Outpatient (CLI) | payer MEDICARE ==
[~2018-05-20] MED LIST changes: -AMIO200T2 PO; +AMIO200T4 PO; +UBID100C7 PO
== END ==
LOC: CARD 12:34
PROVIDERS: ATTEND Physician Assistant
DX: I48.91 Unspecified atrial fibrillation (principal); I50.9 Heart failure, unspecified; I63.9 Cerebral infarction, unspecified; I07.1 Rheumatic tricuspid insufficiency
CPT/HCPCS: 93306

== ENCOUNTER 2018-06-17 05:32 | Outpatient (CLI) | payer MEDICARE ==
[~2018-06-17] VITALS: Ht 172.7 cm; Wt 118.4 kg
[~2018-06-17 05:32] MED LIST changes: -UBID100C7 PO
[2018-06-17] MEDS ORDERED: TRAM50TA2 PO (09:56)
[2018-06-17] MEDS ORDERED: UBID100C7 PO (09:56)
[2018-06-17 10:01] VITALS: BP 108/56
== END 2018-06-17 10:18 | disposition home or self-care (01) ==
LOC: PREOP 05:32
PROVIDERS: ATTEND Orthopaedic Surgery
DX: Z01.818 Encounter for other preprocedural examination (principal)
CPT/HCPCS: 87081

== ENCOUNTER 2018-06-24 07:36 | Day surgery (SDC) | payer MEDICARE ==
--- NOTE | 2018-06-15 11:48 | HISTORY AND PHYSICAL ---
DATE OF SERVICE: This will be for outpatient surgery on 06/24/2018 for right knee arthroscopy. HISTORY OF PRESENT ILLNESS: The patient is a 78-year-old gentleman with complaints of right medial knee pain, catching, locking and swelling. Radiographs revealed mild to moderate degenerative changes in his medial compartment. The patient reports mechanical symptoms with activity limitations because of the knee. He has failed to respond to conservative measures and due to functional impairment and failure to improve with conservative measures, the patient elected to proceed with surgical intervention. REVIEW OF SYSTEMS: No chest pain, no shortness of breath. No dysuria. No splint or boot. PAST MEDICAL HISTORY: Significant for gout, diabetes mellitus, reflux, hyperlipidemia, hypertension, sleep apnea, vertigo, CVA. PAST SURGICAL HISTORY: Appendectomy, cholecystectomy, tonsillectomy, colectomy, fistula repair, right trigger finger, defibrillator placement . FAMILY HISTORY: Unknown. PRIMARY CARE PROVIDER: Dr. Velazquez. MEDICATIONS: Clopidogrel, amiodarone, Eliquis, simvastatin, allopurinol, carvedilol, hydrochlorothiazide, aspirin, finasteride, Entresto, tamsulosin, tramadol. ALLERGIES: CODEINE, PENICILLIN, IBUPROFEN. SOCIAL HISTORY: The patient is a former smoker. Denies alcohol use. PHYSICAL EXAMINATION: GENERAL: The patient is well developed, well nourished, in no acute distress. HEENT: Normocephalic, atraumatic. Pupils are equal, round, reactive to light. Oropharynx is clear. NECK: Supple. No lymphadenopathy. LUNGS: Clear to auscultation bilaterally. HEART: Regular rate and rhythm. ABDOMEN: Soft, nontender, nondistended. EXTREMITIES: The right knee demonstrates a moderate effusion. There is no warmth or erythema. No skin changes are noted. Range of motion is 0/2/120. Negative anterior drawer, negative posterior drawer. No varus valgus laxity. He has tenderness along his medial joint line, has pain medially with Santo's. 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 PLAN: Right knee arthroscopy with partial meniscectomy and chondroplasty. The risks, benefits, options, ramifications and recovery were discussed at length with the patient. He understands and wished to proceed. Job ID: [id number] DocumentID: [id number] Dictated Date: 06/15/2018 10:38:18 Rock Singer Date: 06/15/2018 11:47:40 Dictated By: ERROL HERNANDES MD
[~2018-06-24] VITALS: Ht 172.7 cm; Wt 118.4 kg
[~2018-06-24 07:36] MED LIST changes: +UBID100C7 PO
--- OUTSIDE RECORDS SUMMARY | 2018-06-24 07:42 | XMS REPORT | Continuity of Care Document ---
Author Author [facility] Organization [facility] Address Unknown Phone Unavailable Allergies Active Description Code Type Severity Reaction Onset Reported/Identified Relationship to Patient Clinical Status Yes codeine [id number] Drug Allergy Severe HIVES 02/07/2012 Yes amoxicillin [id number] Drug Allergy Severe N/A 07/06/2015 Yes Penicillins [id number] Drug Allergy Severe N/A 07/06/2015 Yes ibuprofen [id number] Drug Allergy Moderate ANKLES SWELL 11/01/2016 Medications [...] NOS 06/03/2012 Ot 414.01 CORONARY ATHEROSCLEROSIS OF [place] CORON 06/03/2012 Ot 425.4 PRIM CARDIOMYOPATHY NEC [...] LEWIS MD Ot 414.01 CORONARY ATHEROSCLEROSIS OF [place] CORON 07/11/2014 THADDEUS LEWIS MD Ot 414.8 [...] ANAYA MD Ot 721.0 CERVICAL SPONDYLOSIS 08/19/2016 MARYANN ARTHUR, KERRI Razo Ot M47.892 OTHER SPONDYLOSIS, CERVICAL REGION 08/19/2016 KERRI WOLF MD Ot M50.20 OTHER CERVICAL DISC DISPLACEMENT, UNSP C 08/19/2016 KERRI WOLF MD Ot Z79.899 OTHER PRISON (CURRENT) DRUG THERAPY 08/19/2016 Ot R41.0 DISORIENTATION, UNSPECIFIED 08/19/2016 ANGELA CARDENAS Ot E78.2 MIXED HYPERLIPIDEMIA 08/19/2016 ANGELA CARDENAS Ot I10 ESSENTIAL (PRIMARY) HYPERTENSION 08/19/2016 ANGELA CARDENAS Ot I50.22 CHRONIC SYSTOLIC (CONGESTIVE) HEART FAIL 08/19/2016 ANGELA CARDENAS Ot 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 08/19/2016 LAKSHMI SALDIVAR MD Ot I10 ESSENTIAL (PRIMARY) HYPERTENSION 08/19/2016 LAKSHMI SALDIVAR MD Ot I50.22 CHRONIC SYSTOLIC (CONGESTIVE) HEART FAIL 08/20/2016 DMITRY MARRUFO BUTTER PRODUCTION SUPERVISOR Ot M25.572 PAIN IN LEFT ANKLE AND JOINTS OF LEFT FO 09/12/2016 DMITRY MARRUFO [employer]TER PRODUCTION SUPERVISOR Ot M25.572 PAIN IN LEFT ANKLE AND JOINTS OF LEFT FO 09/19/2016 DMITRY MARRUFO BUTTER PRODUCTION SUPERVISOR Ot M25.572 PAIN IN LEFT ANKLE AND JOINTS OF LEFT FO 11/01/2016 ERROL HERNANDES MD Ot M65.341 TRIGGER FINGER, RIGHT RING FINGER 11/01/2016 ERROL HERNANDES MD Ot Z01.818 ENCOUNTER FOR OTHER PREPROCEDURAL EXAMIN 11/04/2016 ERROL HERNANDES MD Ot M65.341 TRIGGER FINGER, RIGHT RING FINGER 11/04/2016 ERROL HERNANDES MD Ot Z01.818 ENCOUNTER FOR OTHER PREPROCEDURAL EXAMIN 11/06/2016 ERROL HERNANDES MD Ot E11.9 TYPE 2 DIABETES MELLITUS WITHOUT COMPLIC 11/06/2016 ERROL HERNANDES MD Ot E78.5 HYPERLIPIDEMIA, UNSPECIFIED 11/06/2016 ERROL HERNANDES MD Ot I10 ESSENTIAL (PRIMARY) HYPERTENSION 11/06/2016 ERROL HERNANDES MD Ot K21.9 GASTRO-ESOPHAGEAL REFLUX DISEASE WITHOUT 11/06/2016 ERROL HERNANDES MD Ot M65.341 TRIGGER FINGER, RIGHT RING FINGER 11/06/2016 ERROL HERNANDES MD Ot Z79.899 OTHER PRISON (CURRENT) DRUG THERAPY 11/06/2016 ERROL HERNANDES MD, Ot Z86.73 PRSNL HX OF TIA (TIA), [...] 11/07/2016 ERROL HERNANDES MD Ot Z79.899 OTHER PRISON (CURRENT) DRUG THERAPY 11/07/2016 ERROL HERNANDES MD Ot Z86.73 PRSNL HX OF TIA (TIA), AND CEREB INFRC W 11/12/2016 ERROL HERNANDES MD, Ot E11.9 TYPE 2 DIABETES MELLITUS WITHOUT COMPLIC 11/12/2016 ERROL HERNANDES MD Ot E78.5 HYPERLIPIDEMIA, UNSPECIFIED 11/12/2016 ERROL HERNANDES MD Ot I10 ESSENTIAL (PRIMARY) HYPERTENSION 11/12/2016 ERROL HERNANDES MD Ot K21.9 GASTRO-ESOPHAGEAL REFLUX DISEASE WITHOUT 11/12/2016 ERROL HERNANDES MD Ot M65.341 TRIGGER FINGER, RIGHT RING FINGER 11/12/2016 ERROL HERNANDES MD Ot Z79.899 OTHER PRISON (CURRENT) DRUG THERAPY 11/12/2016 ERROL HERNANDES MD Ot Z86.73 PRSNL HX OF TIA (TIA), AND CEREB INFRC W 01/16/2017 REYNALDO MEJIA MD, Ot T81.31XA DISRUPTION OF EXTERNAL OPERATION (SURGIC 01/17/2017 REYNALDO MEJIA MD, Ot T81.31XA DISRUPTION OF EXTERNAL OPERATION (SURGIC 01/27/2017 ANGELA CARDENAS Ot E78.2 MIXED HYPERLIPIDEMIA 01/27/2017 ANGELA CARDENAS K Ot I11.0 HYPERTENSIVE HEART DISEASE WITH HEART FA 01/27/2017 ANGELA CARDENAS K Ot I48.0 PAROXYSMAL ATRIAL FIBRILLATION 01/27/2017 ANGELA CARDENAS K Ot I50.22 CHRONIC SYSTOLIC (CONGESTIVE) HEART FAIL 01/30/2017 REYNALDO MEJIA MD, Ot S31.105S UNSP OPN WND ABD WALL, PERIUMB RGN W/O P 01/30/2017 REYNALDO MEJIA MD, Ot T81.31XA DISRUPTION OF EXTERNAL OPERATION (SURGIC 02/07/2017 REYNALDO MEJIA MD, Ot T81.31XA DISRUPTION OF EXTERNAL OPERATION (SURGIC 02/13/2017 BRIDGET CARDENASTH K Ot E78.2 MIXED HYPERLIPIDEMIA 02/13/2017 BRIDGET CARDENASTH K Ot I11.0 HYPERTENSIVE HEART DISEASE WITH HEART FA 02/13/2017 BRIDGET CARDENASTH K Ot I48.0 PAROXYSMAL ATRIAL FIBRILLATION 02/13/2017 BRIDGET CARDENASTH K Ot I50.22 CHRONIC SYSTOLIC (CONGESTIVE) HEART FAIL 02/24/2017 BRIDGET CARDENASTH K Ot E78.2 MIXED HYPERLIPIDEMIA 02/24/2017 BRIDGET CARDENASTH K Ot I11.0 HYPERTENSIVE HEART DISEASE WITH HEART FA 02/24/2017 BRIDGET CARDENASTH K Ot I48.0 PAROXYSMAL ATRIAL FIBRILLATION 02/24/2017 BRIDGET CARDENASTH K Ot I50.22 CHRONIC SYSTOLIC (CONGESTIVE) HEART FAIL 05/30/2017 AMOS NDIAYE DO Ot Z01.818 ENCOUNTER FOR OTHER PREPROCEDURAL EXAMIN 05/30/2017 AMOS NDIAYE DO Ot Z12.11 ENCOUNTER FOR SCREENING FOR MALIGNANT NE 06/04/2017 AMOS NDIAYE DO Ot D12.6 BENIGN NEOPLASM OF COLON, UNSPECIFIED 06/04/2017 AMOS NDIAYE DO Ot E66.01 MORBID (SEVERE) OBESITY DUE TO EXCESS CA 06/04/2017 AMOS NDIAYE DO Ot E78.5 HYPERLIPIDEMIA, UNSPECIFIED 06/04/2017 AMOS NDIAYE DO B Ot G47.33 OBSTRUCTIVE SLEEP APNEA (ADULT) (PEDIATR 06/04/2017 AMOS NDIAYE DO B Ot I11.0 HYPERTENSIVE HEART DISEASE WITH HEART [...] ADULT 06/04/2017 AMOS NDIAYE DO Ot Z79.01 PRISON (CURRENT) USE OF ANTICOAGULANT 06/04/2017 AMOS NDIAYE DO Ot Z79.02 PRISON (CURRENT) USE OF ANTITHROMBOTI 06/04/2017 AMOS NDIAYE DO Ot Z87.891 PERSONAL HISTORY OF NICOTINE DEPENDENCE 06/11/2017 AMOS NDIAYE DO Ot D12.6 BENIGN NEOPLASM OF COLON, UNSPECIFIED 06/11/2017 AMOS NDIAYE DO Ot E66.01 MORBID (SEVERE) OBESITY DUE TO EXCESS CA 06/11/2017 AMOS NDIAYE DO B Ot E78.5 HYPERLIPIDEMIA, UNSPECIFIED 06/11/2017 AMOS NDIAYE DO B Ot G47.33 OBSTRUCTIVE SLEEP APNEA (ADULT) (PEDIATR 06/11/2017 AMOS NDIAYE DO B Ot I11.0 HYPERTENSIVE HEART DISEASE WITH HEART FA 06/11/2017 AMOS NDIAYE DO B Ot I48.91 UNSPECIFIED ATRIAL FIBRILLATION 06/11/2017 AMOS NDIAYE DO Ot I50.9 HEART FAILURE, UNSPECIFIED 06/11/2017 AMOS NDIAYE DO Ot J44.9 CHRONIC OBSTRUCTIVE PULMONARY DISEASE, U 06/11/2017 AMOS NDIAYE DO, Ot K57.30 DVRTCLOS OF LG INT W/O PERFORATION OR AB 06/11/2017 AMOS NDIAYE DO, Ot K64.8 OTHER HEMORRHOIDS 06/11/2017 AMOS NDIAYE DO Ot Z12.11 ENCOUNTER FOR SCREENING FOR MALIGNANT NE 06/11/2017 AMOS NDIAYE DO Ot Z68.38 BODY MASS INDEX (BMI) 38.0-38.9, ADULT 06/11/2017 AMOS NDIAYE DO, Ot Z79.01 PRISON (CURRENT) USE OF ANTICOAGULANT 06/11/2017 AMOS NDIAYE DO Ot Z79.02 PRISON (CURRENT) USE OF ANTITHROMBOTI 06/11/2017 AMOS NDIAYE DO, Ot Z87.891 PERSONAL HISTORY OF NICOTINE DEPENDENCE [...] STRIKE AG 11/23/2017 RAEGAN HERBERT Ot Y92.[address] 11/23/2017 RAEGAN HERBERT Ot Z79.01 PRISON (CURRENT) USE OF ANTICOAGULANT 11/23/2017 RAEGAN HERBERT Ot Z82.49 FAMILY HX OF ISCHEM HEART DIS AND OTH DI 11/23/2017 RAEGAN HERBERT Ot Z86.010 PERSONAL HISTORY OF COLONIC POLYPS 11/23/2017 RAEGAN HERBERT Ot Z86.73 PRSNL HX OF TIA (TIA), AND CEREB INFRC W 11/23/2017 RAEGAN HERBERT Ot Z87.19 PERSONAL HISTORY OF OTHER DISEASES OF TH 11/23/2017 RAEGAN HERBERTP Ot Z87.891 PERSONAL HISTORY OF NICOTINE DEPENDENCE 11/23/2017 PIEDADRAEGAN EstradaP Ot Z88.0 ALLERGY STATUS TO PENICILLIN 11/23/2017 RAEGAN HERBERTP Ot Z88.1 ALLERGY STATUS TO OTHER ANTIBIOTIC AGENT 11/23/2017 PIEDADRAEGAN EstradaP Ot Z88.5 ALLERGY STATUS TO NARCOTIC AGENT STATUS 11/23/2017 PIEDADRAEGAN EstradaP Ot Z88.6 ALLERGY STATUS TO ANALGESIC AGENT STATUS 11/23/2017 PIEDADRAEGAN EstradaP Ot Z90.49 ACQUIRED ABSENCE OF OTHER SPECIFIED PART 11/23/2017 PIEDADRAEGAN EstradaP Ot Z95.5 PRESENCE OF CORONARY ANGIOPLASTY IMPLANT 11/23/2017 RAEGAN HERBERT RIGGING FOREMAN Ot Z95.810 PRESENCE OF AUTOMATIC (IMPLANTABLE) CARD 11/25/2017 RAEGAN HERBERTP Ot E78.00 PURE HYPERCHOLESTEROLEMIA, UNSPECIFIED 11/25/2017 RAEGAN HERBERTP Ot G43.909 MIGRAINE, UNSP, NOT INTRACTABLE, WITHOUT 11/25/2017 RAEGAN HERBERTP Ot G47.30 SLEEP APNEA, UNSPECIFIED 11/25/2017 RAEGAN HERBERTP Ot R05 COUGH 11/25/2017 RAEGAN HERBERT [employer]GING FOREMAN Ot R53.1 WEAKNESS 11/25/2017 RAEGAN HERBERT [employer]GING FOREMAN Ot S09.90XA UNSPECIFIED INJURY OF HEAD, INITIAL ENCO 11/25/2017 RAEGAN HERBERTP Ot W01.198A FALL SAME LEV FROM SLIP/TRIP W STRIKE AG 11/25/2017 RAEGAN HERBERT RIGGING FOREMAN Ot Y92.[address] 11/25/2017 RAEGAN HERBERTP Ot Z79.01 PRISON (CURRENT) USE OF ANTICOAGULANT 11/25/2017 RAEGAN HERBERT [employer]GING FOREMAN Ot Z82.49 FAMILY HX OF ISCHEM HEART DIS AND OTH DI 11/25/2017 RAEGAN HERBERTP Ot Z86.010 PERSONAL HISTORY OF COLONIC POLYPS 11/25/2017 RAEGAN HERBERT [employer]GING FOREMAN Ot Z86.73 PRSNL HX OF TIA (TIA), AND CEREB INFRC W 11/25/2017 RAEGAN HERBERT [employer]GING FOREMAN Ot Z87.19 PERSONAL HISTORY OF OTHER DISEASES OF TH 11/25/2017 RAEGAN HERBERTP Ot Z87.891 PERSONAL HISTORY OF NICOTINE DEPENDENCE 11/25/2017 PIEDADRAEGAN EstradaP Ot Z88.0 ALLERGY STATUS TO PENICILLIN 11/25/2017 PIEDAD, RAEGAN RIGGING FOREMAN Ot Z88.1 ALLERGY STATUS TO OTHER ANTIBIOTIC AGENT 11/25/2017 PIEDADRAEGAN Estrada R[employer]GING FOREMAN Ot Z88.5 ALLERGY STATUS TO NARCOTIC AGENT STATUS 11/25/2017 PIEDADRAEGAN Estrada RIGGING FOREMAN Ot Z88.6 ALLERGY STATUS TO ANALGESIC AGENT STATUS 11/25/2017 PIEDADRAEGAN Estrada R[employer]GING FOREMAN Ot Z90.49 ACQUIRED ABSENCE OF OTHER SPECIFIED PART 11/25/2017 PIEDADRAEGAN Estrada R[employer]GING FOREMAN Ot Z95.5 PRESENCE OF CORONARY ANGIOPLASTY IMPLANT 11/25/2017 PIEDAD, RAEGAN RIGGING FOREMAN Ot Z95.810 PRESENCE OF AUTOMATIC (IMPLANTABLE) CARD 11/29/2017 PIEDADRAEGAN EstradaP Ot E78.00 PURE HYPERCHOLESTEROLEMIA, UNSPECIFIED 11/29/2017 PIEDADRAEGAN Estrada R[employer]GING FOREMAN Ot G43.909 MIGRAINE, UNSP, NOT INTRACTABLE, WITHOUT 11/29/2017 PIEDAD, RAEGAN RIGGING FOREMAN Ot G47.30 SLEEP APNEA, UNSPECIFIED 11/29/2017 RAEGAN HERBERTP Ot R05 COUGH 11/29/2017 PIEDADRAEGAN Estrada [employer]GING FOREMAN Ot R53.1 WEAKNESS 11/29/2017 PIEDADRAEGAN Estrada R[employer]GING FOREMAN Ot S09.90XA UNSPECIFIED INJURY OF HEAD, INITIAL ENCO 11/29/2017 RAEGAN HERBERTP Ot W01.198A FALL SAME LEV FROM SLIP/TRIP W STRIKE AG 11/29/2017 PIEDAD RAEGAN RIGGING FOREMAN Ot Y92.[address] 11/29/2017 RAEGAN HERBERT R[employer]GING FOREMAN Ot Z79.01 BAKER TEST (CURRENT) USE OF ANTICOAGULANT 11/29/2017 RAEGAN HERBERT R[employer]GING FOREMAN Ot Z82.49 FAMILY HX OF ISCHEM HEART DIS AND OTH DI 11/29/2017 PIEDADRAEGAN Estrada RIGGING FOREMAN Ot Z86.010 PERSONAL HISTORY OF COLONIC POLYPS 11/29/2017 PIEDADRAEGAN Estrada RIGGING FOREMAN Ot Z86.73 PRSNL HX OF TIA (TIA), AND CEREB INFRC W 11/29/2017 RAEGAN HERBERT R[employer]GING FOREMAN Ot Z87.19 PERSONAL HISTORY OF OTHER DISEASES OF TH 11/29/2017 PIEDADRAEGAN Estrada R[employer]GING FOREMAN Ot Z87.891 PERSONAL HISTORY OF NICOTINE DEPENDENCE 11/29/2017 PIEDADRAEGAN Estrada RIGGING FOREMAN Ot Z88.0 ALLERGY STATUS TO PENICILLIN 11/29/2017 PIEDAD, RAEGAN RIGGING FOREMAN Ot Z88.1 ALLERGY STATUS TO OTHER ANTIBIOTIC AGENT 11/29/2017 RAEGAN HERBERTP Ot Z88.5 ALLERGY STATUS TO NARCOTIC AGENT STATUS 11/29/2017 RAEGAN HERBERTP Ot Z88.6 ALLERGY STATUS TO ANALGESIC AGENT STATUS 11/29/2017 RAEGAN HERBERTP Ot Z90.49 ACQUIRED ABSENCE OF OTHER SPECIFIED PART 11/29/2017 RAEGAN HERBERTP Ot Z95.5 PRESENCE OF CORONARY ANGIOPLASTY IMPLANT 11/29/2017 RAEGAN HERBERTP Ot Z95.810 PRESENCE OF AUTOMATIC (IMPLANTABLE) CARD 01/05/2018 AMOS NDIAYE DO Ot Z01.818 ENCOUNTER FOR OTHER PREPROCEDURAL EXAMIN 01/06/2018 AMOS NDIAYE DO Ot Z01.818 ENCOUNTER FOR OTHER PREPROCEDURAL EXAMIN 01/07/2018 AMOS NDIAYE DO Ot 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 01/07/2018 AMOS NDIAYE DO Ot E78.5 HYPERLIPIDEMIA, UNSPECIFIED 01/07/2018 AMOS NDIAYE DO B Ot G47.33 OBSTRUCTIVE SLEEP APNEA (ADULT) (PEDIATR 01/07/2018 AMOS NDIAYE DO B Ot I11.0 HYPERTENSIVE HEART DISEASE WITH HEART FA 01/07/2018 AMOS NDIAYE DO Ot I25.10 ATHSCL HEART DISEASE OF [place] CORONARY 01/07/2018 AMOS NDIAYE DO B Ot I50.22 CHRONIC SYSTOLIC (CONGESTIVE) HEART FAIL 01/07/2018 AMOS NDIAYE DO B Ot J44.9 CHRONIC OBSTRUCTIVE PULMONARY DISEASE, U 01/07/2018 AMOS NDIAYE DO B Ot L57.0 ACTINIC KERATOSIS 01/07/2018 AMOS NDIAYE DO B Ot R79.1 ABNORMAL COAGULATION PROFILE 01/07/2018 AMOS NDIAYE DO Ot Z11.2 ENCOUNTER FOR SCREENING FOR OTHER BACTER 01/09/2018 AMOS NDIAYE DO Ot 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 01/09/2018 AMOS NDIAYE DO B Ot E78.5 HYPERLIPIDEMIA, UNSPECIFIED 01/09/2018 PHAM NDIAYE DOIC B Ot G47.33 OBSTRUCTIVE SLEEP APNEA (ADULT) (PEDIATR 01/09/2018 AMOS NDIAYE DO B Ot I11.0 HYPERTENSIVE HEART DISEASE WITH HEART FA 01/09/2018 AMOS NDIAYE DO Ot I25.10 ATHSCL HEART DISEASE OF [place] CORONARY 01/09/2018 AMOS NDIAYE DO Ot I50.22 CHRONIC SYSTOLIC (CONGESTIVE) HEART FAIL 01/09/2018 AMOS NDIAYE DO Ot J44.9 CHRONIC OBSTRUCTIVE PULMONARY DISEASE, U 01/09/2018 AMOS NDIAYE DO Ot L57.0 ACTINIC KERATOSIS 01/09/2018 AMOS NDIAYE DO Ot R79.1 ABNORMAL COAGULATION PROFILE 01/09/2018 AMOS NDIAYE DO Ot Z11.2 ENCOUNTER FOR SCREENING FOR OTHER BACTER 03/12/2018 ROBERTO ARTHUR, REYNALDO Amor Ot M16.12 UNILATERAL PRIMARY OSTEOARTHRITIS, LEFT 04/08/2018 ROBERTO ARTHUR, REYNALDO Amor Ot M16.12 UNILATERAL PRIMARY OSTEOARTHRITIS, LEFT 05/15/2018 JANNA ARTHUR, LAKSHMI Razo Ot 397.0 TRICUSPID VALVE DISEASE 05/15/2018 JANNA ARTHUR, LAKSHMI Razo Ot 424.0 MITRAL VALVE DISORDER 05/15/2018 JANNA ARTHUR, LAKSHMI Razo Ot 428.0 CONGESTIVE HEART FAILURE NOS 05/15/2018 ANGELA CARDENAS Ot 272.4 HYPERLIPIDEMIA NEC/NOS 05/15/2018 ANGELA CARDEANS Ot 401.9 HYPERTENSION NOS 05/15/2018 ANGELA CARDENAS K Ot 428.0 CONGESTIVE HEART FAILURE NOS 05/15/2018 ANGELA CARDENAS Ot 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 05/15/2018 ANGELA CARDENAS K Ot 272.4 HYPERLIPIDEMIA NEC/NOS 05/15/2018 ANGELA CARDENAS Ot 397.0 TRICUSPID VALVE DISEASE 05/15/2018 ANGELA CARDENAS Ot 401.9 HYPERTENSION NOS 05/15/2018 ANGELA CARDENAS Ot 424.0 MITRAL VALVE DISORDER 05/15/2018 ANGELA CARDENAS Ot 428.0 CONGESTIVE HEART FAILURE NOS 05/15/2018 DEBBIE ARTHUR, THADDEUS Russo Ot 789.09 ABDOMINAL PAIN, OTHER SPECIFIED SITE 05/15/2018 ANGELA CARDENAS Ot 272.4 HYPERLIPIDEMIA NEC/NOS 05/15/2018 ANGELA CARDENAS Ot 401.9 HYPERTENSION NOS 05/15/2018 ANGELA CARDENAS Ot 428.0 CONGESTIVE HEART FAILURE NOS 05/15/2018 ANGELA CARDENAS Ot 434.91 CEREBRAL ART OCCLUSION NOS W CEREBRAL IN 05/15/2018 ANGELA CARDENAS Ot 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 05/15/2018 JACLYN ARTHUR, SUJATHA Dutta Ot 723.1 CERVICALGIA 05/15/2018 JACLYN ARTHUR, SUJATHA Dutta Ot 721.0 CERVICAL SPONDYLOSIS 05/15/2018 MARYANN ARTHUR, KERRI Razo Ot M47.892 OTHER SPONDYLOSIS, CERVICAL REGION 05/15/2018 KERRI WOLF MD Ot M50.20 OTHER CERVICAL DISC DISPLACEMENT, UNSP C 05/15/2018 KERRI WOLF MD Ot Z79.899 OTHER PRISON (CURRENT) DRUG THERAPY 05/15/2018 Ot R41.0 DISORIENTATION, UNSPECIFIED 05/15/2018 ANGELA CARDENAS Ot E78.2 MIXED HYPERLIPIDEMIA 05/15/2018 ANGELA CARDENAS Ot I10 ESSENTIAL (PRIMARY) HYPERTENSION 05/15/2018 ANGELA CARDENAS Ot I50.22 CHRONIC SYSTOLIC (CONGESTIVE) HEART FAIL 05/15/2018 ANGELA CARDENAS Ot 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 05/15/2018 LAKSHMI SALDIVAR MD Ot I10 ESSENTIAL (PRIMARY) HYPERTENSION 05/15/2018 LAKSHMI SALDIVAR MD Ot I50.22 CHRONIC SYSTOLIC (CONGESTIVE) HEART FAIL 05/15/2018 DMITRY MARRUFO APRN Ot M25.572 PAIN IN LEFT ANKLE AND JOINTS OF LEFT FO 05/15/2018 ANGELA CARDENAS Ot E78.2 MIXED HYPERLIPIDEMIA 05/15/2018 ANGELA CARDENAS Ot I11.0 HYPERTENSIVE HEART DISEASE WITH HEART FA 05/15/2018 ANGELA CARDENAS Ot I48.0 PAROXYSMAL ATRIAL FIBRILLATION 05/15/2018 ANGELA CARDENAS Ot I50.22 CHRONIC SYSTOLIC (CONGESTIVE) HEART FAIL 05/15/2018 ROBERTO ARTHUR, REYNALDO Amor Ot T81.31XA DISRUPTION OF EXTERNAL OPERATION (SURGIC 05/15/2018 REYNALDO MEJIA MD Ot M16.12 UNILATERAL PRIMARY OSTEOARTHRITIS, LEFT 05/21/2018 STAHLDELMY PA, ANGELA K Ot I07.1 RHEUMATIC TRICUSPID INSUFFICIENCY 05/21/2018 STAHLDELMY PA, ANGELA K Ot I48.91 UNSPECIFIED ATRIAL FIBRILLATION 05/21/2018 STAHLDELMY PA, ANGELA K Ot I50.9 HEART FAILURE, UNSPECIFIED 05/21/2018 STAHL-DANIEL PA, ANGELA K Ot I63.9 CEREBRAL INFARCTION, UNSPECIFIED 06/12/2018 STAHL-DANIEL PA, ANGELA K Ot I07.1 RHEUMATIC TRICUSPID INSUFFICIENCY 06/12/2018 STAHL-DANIEL PA, ANGELA K Ot I48.91 UNSPECIFIED ATRIAL FIBRILLATION 06/12/2018 STAHL-DANIEL PA, ANGELA K Ot I50.9 HEART FAILURE, UNSPECIFIED 06/12/2018 STAHL-DANIEL PA, ANGELA K Ot I63.9 CEREBRAL INFARCTION, UNSPECIFIED 06/17/2018 STAHLDELMY PA, ANGELA K Ot I07.1 RHEUMATIC TRICUSPID INSUFFICIENCY 06/17/2018 STAHLDELMY PA, ANGELA K Ot I48.91 UNSPECIFIED ATRIAL FIBRILLATION 06/17/2018 STAHL-DANIEL PA, ANGELA K Ot I50.9 HEART FAILURE, UNSPECIFIED 06/17/2018 STAHL-DANIEL PA, ANGELA K Ot I63.9 CEREBRAL INFARCTION, UNSPECIFIED 06/18/2018 GRETA ARTHUR, ERROL Campos Ot Z01.818 ENCOUNTER FOR OTHER PREPROCEDURAL EXAMIN [...] 11:20 Bacteria identification in wound by culture [id number] [facility] FREE TEXT EXTERNAL SENSITIVITY REPORTED 01/18/17 8:40 NRG QUANTITY OF GROWTH Moderate Growth NRG MRSA AGAR Screening test for MRSA is NEGATIVE (Final to follow) NR Bacterial susceptibility panel - 01/16/17 11:20 Oxacillin [...] FOR INFLUENZA A AND B ANTIGENS BY [facility] Complete blood count (CBC) with [...] plasma albumin measurement (mass/volume) 3.9 g/dL 3.2-4.5 Methicillin resistant Staphylococcus aureus (MRSA) screening culture - 10:35 Methicillin resistant Staphylococcus aureus (MRSA) screening culture NEG NRG Methicillin resistant Staphylococcus aureus (MRSA) screening culture - 10:15 Methicillin resistant Staphylococcus aureus (MRSA) screening culture NEG NRG Encounters ACCT No. Visit Date/Time Discharge Status Pt. Type Provider Facility Loc./Unit Complaint [id number] 06/17/2018 05:32:00 06/17/2018 10:18:00 DIS Outpatient GRETA ARTHUR, ERROL Campos [facility] PREOP RT. KNEE SCOPE [id number] 05/20/2018 12:34:00 05/20/2018 23:59:59 CLS Outpatient ANGELA CARDENAS [facility] CARD AFIB,CHF,CVA ,CAROTID ARTERY STENOSIS [id number] 03/11/2018 11:21:00 03/11/2018 23:59:59 CLS Outpatient REYNALDO MEJIA MD [facility] RAD LEFT HIP PAIN [id number] 01/07/2018 10:17:00 01/07/2018 15:10:00 DIS Outpatient AMOS NDIAYE DO [facility] SKIN LESIONS BILATERAL EARS [id number] 01/05/2018 05:42:00 01/05/2018 12:14:00 DIS Outpatient AMOS NDIAYE DO [facility] PREOP SKIN LESIONS BILATERAL EARS [id number] 11/23/2017 18:34:00 11/23/2017 22:18:00 DIS Emergency PIEDAD, RAEAGN RIGGING FOREMAN [facility] ER DIZZINESS,SYNCOPE [id number] 06/04/2017 06:51:00 06/04/2017 09:40:00 DIS Outpatient AMOS NDIAYE DO [facility] ENDO SCREENING [id number] 05/30/2017 05:33:00 05/30/2017 09:16:00 DIS Outpatient AMOS NDIAYE DO [facility] PREOP SCREENING COLONOSCOPY [id number] 01/30/2017 10:40:00 01/30/2017 16:00:00 DIS Outpatient REYNALDO MEJIA MD [facility] WOUNDCARE [id number] 01/24/2017 12:31:00 01/24/2017 23:59:59 CLS Outpatient ANGELA CARDENAS [facility] CARD I48.0 AFIB, I50.22 CHF [id number] 01/16/2017 11:40:00 01/16/2017 23:59:59 CLS Outpatient REYNALDO MEJIA MD [facility] LAB T81.31XA [id number] 11/06/2016 07:33:00 11/06/2016 10:39:00 DIS Outpatient ERROL HERNANDES MD [facility] RIGHT RING FINGER TRIGGER SYNDROME [id number] 11/01/2016 09:17:00 11/01/2016 10:20:00 DIS Outpatient ERROL HERNANDES MD [facility] PREOP RIGHT RING FINGER TRIGGER SYNDROME [id number] 08/19/2016 13:43:00 08/19/2016 23:59:59 CLS Outpatient NIRU DMITRY Russo TED [facility] RAD LEFT ANKLE PAIN [id number] 05/17/2016 09:12:00 05/17/2016 23:59:59 CLS Outpatient LAKSHMI SALDIVAR MD [facility] CARD I50.22 [id number] 03/27/2016 13:27:00 03/27/2016 23:59:59 CLS Outpatient ANGELA CARDENAS [facility] CARD CHF,CAROTID ARTERY STENOSIS,HTN,HLP [id number] 11/23/2015 11:40:00 11/23/2015 17:25:00 DIS Emergency ALEKSANDER HAN [facility] ER LOW BLOOD PRESSURE/ DIZZINESS [id number] 07/06/2015 12:46:00 07/08/2015 15:00:00 DIS Inpatient SUJATHA ANAYA MD [facility] 4TH SEPSIS-LIKELY DENTAL SOURCE [id number] 07/03/2015 13:00:00 07/03/2015 23:59:59 CLS Outpatient KERRI WOLF MD [facility] CARD DDD [id number] 05/25/2015 12:26:00 05/25/2015 23:59:59 CLS Outpatient SUJATHA ANAYA MD [facility] RAD NECK PAIN LEFT ARM NUMBNESS [id number] 05/13/2015 11:53:00 05/13/2015 14:07:00 DIS Emergency ALEKSANDER HAN [facility] ER R AND L FOOT PAIN [id number] 04/10/2015 10:57:00 04/10/2015 23:59:59 CLS Outpatient SUJATHA ANAYA MD [facility] RAD NECK PAIN,STIFFNESS [id number] 02/23/2015 13:40:00 02/23/2015 23:59:59 CLS Outpatient ANGELA CARDENAS [facility] CARD CHF,COPD,CVA ,HTN [id number] 10/24/2014 12:21:00 10/24/2014 23:59:59 CLS Outpatient THADDEUS LEWIS MD [facility] RAD LT SIDED ABD PAIN [id number] 08/17/2014 07:45:00 08/17/2014 23:59:59 CLS Outpatient ANGELA CARDENAS [facility] CARD CHS,COPD,HTN ,HLP [id number] 07/08/2014 15:48:00 07/11/2014 11:15:00 DIS Inpatient THADDEUS LEWIS MD [facility] CSD HYPOTENSION RENAL FAILURE [id number] 06/13/2014 12:46:00 06/13/2014 23:59:59 CLS Outpatient ANGELA CARDENAS [facility] CARD CHF,COPD,HTN ,HLP [id number] 07/29/2013 08:41:00 07/29/2013 23:59:59 CLS Outpatient JANNA ARTHUR, LAKSHMI Razo [facility] CARD CHF [id number] 05/07/2013 12:12:00 05/10/2013 10:50:00 DIS Inpatient EDSON ARTHUR, LUCRECIA Russo [facility] SURGICAL SMALL BOWEL OBSTRUCTION [id number] 06/24/2018 07:36:00 ACT Outpatient GRETA ARTHUR, ERROL Campos [facility] SDC RIGHT KNEE TORN MEDIAL MENISCUS [id number] 12/15/2015 09:21:00 Document Registration [id number] 10/24/2014 12:21:00 Document Registration [id number] 06/03/2012 08:55:00 Document Registration [id number] 05/13/2012 07:49:00 Document Registration [id number] 05/01/2012 11:21:00 Document Registration [id number] 02/11/2012 07:24:00 Document Registration [id number] 02/07/2012 08:08:00 Document Registration [id number] 12/16/2011 10:51:00 Document Registration [id number] 09/05/2011 21:16:00 Document Registration [id number] 08/29/2009 10:29:00 Document Registration [id number] 05/25/2015 12:27:10 ACT Document Registration
[2018-06-24 07:50] VITALS: BP 130/67
[2018-06-24] MEDS ORDERED: CLINDAMYCIN 600 MG/50 ML IVPB 50 ML IV ONE (08:15)
[2018-06-24] MEDS ORDERED: LACTATED RINGERS 1,000 ML IV PRN (08:15)
[2018-06-24] MEDS ORDERED: SEVOFLURANE (ULTANE) 15 ML INHAL SOLN ONE (08:22)
[2018-06-24] MEDS ORDERED: ONDANSETRON 4 MG/2 ML (SDV) Z0FRAN ONE (08:22)
[2018-06-24] MEDS ORDERED: DEXAMETHASONE 10 MG/ML (DECADRON) 1 ML VIAL ONE (08:22)
[2018-06-24] MEDS ORDERED: LIDOCAINE PF 2% 5 ML (XYLOCAINE) VIAL ONE (08:22)
[2018-06-24] MEDS ORDERED: proPOfol 200 MG/20 ML (DIPRIVAN) VIAL IV ONE (08:22)
[2018-06-24] MEDS ORDERED: fentaNYL INJECTION 100 MCG/2 ML AMP ONE (08:22)
[2018-06-24] MEDS ORDERED: CATHETER FLUSH 10 ML SYR IV PRN (08:30)
[2018-06-24] MEDS ORDERED: morphine PF (DURAMORPH) 10 MG/10 ML AMP ONE (09:13)
[2018-06-24] MEDS ORDERED: BUPIVACAINE 0.25% 30 ML (SENSORCAINE) VIAL ONE (09:13)
--- NOTE | 2018-06-24 09:29 | Progress Note-Pre Operative ---
Pre-Operative Progress Note H&P Reviewed The H&P was reviewed, patient examined and no changes noted. Date Seen by Provider: Jun 24, 2018 Time Seen by Provider: 09:12 Date H&P Reviewed: Jun 24, 2018 Time H&P Reviewed: 07:20 Pre-Operative Diagnosis: right knee medial meniscus tear and chondromalacia ERROL HERNANDES MD Jun 24, 2018 09:29
[2018-06-24] MEDS ORDERED: HYDROcodone/APAP 7.5 MG/325 MG (LORTAB, LORCET PLUS) TABLET PO PRN (09:30)
--- NOTE | 2018-06-24 09:30 | Progress Note-Post Operative ---
Post-Operative Progess Note Surgeon (s)/Instructor Ballroom Dancing (s) Surgeon ERROL HERNANDES MD Instructor Ballroom Dancing: ivon Turner Pre-Operative Diagnosis right knee medial meniscus tear and chondromalacia Post-Operative Diagnosis right knee medial meniscus tear and chondromalacia of the medial femoral condyle, lateral femoral condyle and patella Procedure & Operative Findings Date of Procedure 06/24/18 Procedure Performed/Findings right knee arthroscopic partial medial meniscectomy and chondroplasty of the medial and lateral femoral condyles and patella Anesthesia Type GETA Estimated Blood Loss Estimated blood loss (mL): minimal Specimens/Packing Specimens Removed none Packing: none ERROL HERNANDES MD Jun 24, 2018 09:30
[2018-06-24] MEDS ORDERED: morphine INJ 10 MG/ML 1ML (SYR OR VIAL) IVP ONE (10:30)
[2018-06-24 11:20] VITALS: BP 114/55
[2018-06-24 11:50] VITALS: BP 108/58
[2018-06-24] MEDS ORDERED: HYDR-3816 PO (12:17)
[2018-06-24 12:20] VITALS: BP 112/60
--- NOTE | 2018-06-24 13:28 | OPERATIVE REPORT ---
DATE OF SERVICE: 06/24/2018 PREOPERATIVE DIAGNOSES: 1. Right knee medial meniscus tear. 2. Right knee chondromalacia of the medial femoral condyle. 3. Right knee chondromalacia of the patella. POSTOPERATIVE DIAGNOSES: 1. Right knee medial meniscus tear. 2. Right knee chondromalacia of the medial femoral condyle. 3. Right knee chondromalacia of the patella. 4. Right knee chondromalacia of the lateral femoral condyle. PROCEDURES: 1. Right knee arthroscopic partial medial meniscectomy. 2. Right knee arthroscopic chondroplasty, medial femoral condyle. 3. Right knee arthroscopic chondroplasty of the lateral femoral condyle. 4. Right knee arthroscopic chondroplasty of the patella. SURGEON: Christiano Hernandes MD. MOTOR EXPRESS CLERK: SHARAD Johnson, who assisted throughout the procedure and closed the incisions. ANESTHESIA: General endotracheal by Dar Rosenthal CRNA. TOURNIQUET TIME: Not applicable. ESTIMATED BLOOD LOSS: Minimal. DRAINS: None. COMPLICATIONS: None. POSTOPERATIVE PLAN: Routine arthroscopy protocol. The patient was transported to the recovery room awake and in stable condition. STATEMENT OF MEDICAL NECESSITY: The patient is a 78-year-old gentleman with complaints of right knee pain, catching, locking and swelling. He was tender along his medial joint line. He had a large effusion. He complained of mechanical symptoms. Radiographs did reveal moderate medial compartment joint space narrowing with mild patellofemoral joint space narrowing. The patient understood that an arthroscopy can help with his mechanical symptoms, but would not cure his arthritic symptoms, but due to functional impairment and failure to improve with conservative measures, the patient elected to proceed with surgical intervention. Examination under anesthesia revealed range of motion of 0/3/125 with a negative Anjel, negative anterior and posterior drawer, no varus valgus laxity and a negative pivot shift. Arthroscopic findings demonstrated grade III chondral loss centrally over the patella and a 15 x 15 area with surrounding grade III flaps at the periphery. The trochlea demonstrated no gross chondral abnormalities. The medial and lateral gutters were clear. Lateral compartment demonstrated a grade III chondral flap anteriorly and an 8 x 8 area of the meniscus was intact. The ACL and PCL were intact. The medial compartment demonstrated grade IV chondral loss anteriorly and a 20 x 20 area with posterior grade III chondral flaps and a 10 x 10 area and a complex tear of the posterior horn and body of the medial meniscus involving approximately one half of the posterior horn and body. DESCRIPTION OF PROCEDURE: After risks and benefits of the procedure were discussed and questions were answered, informed consent was signed and placed on the chart. The operative site was confirmed in the preoperative holding area initialed by the surgeon. The patient was then transported to the operating room and after adequate level of general endotracheal anesthetic was obtained, a timeout was called confirming the operative site. Examination under anesthesia was performed with above findings noted. The right lower extremity was prepped and draped in the usual sterile fashion. The knee joint was injected with 60 mL of fluid. A standard inferolateral portal was placed with the arthroscope under direct visualization and inferomedial portal was created. The menisci and cruciates were carefully probed with the above findings noted. The unstable chondral flaps on the patella were debrided with a shaver back to a stable edge. The scope was then redirected into the lateral compartment and several chondral flaps and lateral femoral condyle were debrided shaved back to a stable edge. Scope was then redirected into the medial compartment where the posterior horn and body of the medial meniscus were debrided with a biter and a shaver removing approximately one half of the posterior horn and body. This was carefully probed with no further tearing or instability noted and stable chondral flaps in the medial femoral condyle were debrided with shaver back to a stable edge. The knee was copiously irrigated. Portal sites were closed with 4-0 nylon in simple interrupted fashion. The knee was injected with Duramorph. The portal sites were infiltrated with plain Marcaine. A soft dressing was applied and the patient was transferred to the recovery room awake and in stable condition. Job ID: [id number] DocumentID: [id number] Dictated Date: 06/24/2018 10:21:04 Vice President Sales And Marketing Date: 06/24/2018 13:27:54 Dictated By: CHRISTIANO HERNANDES MD
--- NOTE | 2018-06-24 13:48 | Physical Therapy Ortho Eval ---
PT Orthopedic Evaluation Type of Surgery Knee Scope (right) Prior Level of Function Current Living Status: Alone Locomotion (Upon Admit): Independent Subjective Subjective Pt agreeable to PT. Reports he will be home alone but has good support from daughters. Entry Into Home: Stairs With Railing Steps Into Home: 2 Motor Control Motor Control: Motor Control WNL ROM ROM: WFL, except focal deficit (right knee flexion slightly limited) Strength Strength: Gen Weak,No Focal Deficit (right quads due to recent scope; but Indep SLR) Transfer Transfers (B, C, W/C) (FIM): 5 (6 post treatment) Gait Gait Assistive Device: FWW Right Lower Extremity: Right Weight Bearing Status RLE: Weight Bearing/Tolerated Left Lower Extremity: Left Weight Bearing Status LLE: Full Weight Bearing Gait (FIM): 5 (6 post PT treatment) Distance (FIM): 3=150 ft Summary/Comments safe gait using a FWW; safe use of device. Treatment Rendered Treatment: Therapeutic Exercises, Gait Train, Step Train Exercise Instruction: Quad Sets, Straight Leg Raise, Heel Slides Assessment/Goals Goal Time Frame: 1 Visit Understands HEP: Yes Safe Ambulation: Yes Plan Treatment Plan: Discharge PT/Family Agrees to Plan: Yes Time Time In: 1215 Time Out: 1240 Total Billed Treatment Time: 25 Billed Treatment Time visit EVM 25 Yes PT/OT Therapy GCodes Therapy Functional Limitation: Physical Therapy Test(s)/Tool used to determine: Level of Assistance Scale Functional Limitation-Current Charge Code: MOBCUR Modifier: CJ Functional Limitation-Goal Charge Code: MOBGOAL Modifier: CI Functional Limitation-D/C Charge Codes: MOBDC Modifier: CI MERY BOLANOS PT Jun 24, 2018 13:48
--- NOTE | 2018-06-24 15:25 | Anesthesia-General Post-Op ---
General Patient Condition Mental Status/LOC: Same as Preop Cardiovascular: Satisfactory Nausea/Vomiting: Absent Respiratory: Satisfactory Pain: Controlled Complications: Absent Post Op Complications Complications None Follow Up Care/Instructions Patient Instructions None needed. Anesthesia/Patient Condition Patient Condition Patient was seen after the procedure and he was doing well, no complaints, stable vital signs, no apparent adverse anesthesia problems. LUANN ESPINOZA DO Jun 24, 2018 15:25
== END 2018-06-24 13:05 | disposition home or self-care (01) ==
LOC: SDC 07:36
PROVIDERS: ATTEND Orthopaedic Surgery
DX: M23.222 Derangement of posterior horn of medial meniscus due to old tear or injury, left knee (principal); M23.231 Derangement of other medial meniscus due to old tear or injury, right knee; M22.41 Chondromalacia patellae, right knee; E11.9 Type 2 diabetes mellitus without complications; I11.0 Hypertensive heart disease with heart failure; I50.20 Unspecified systolic (congestive) heart failure; K21.9 Gastro-esophageal reflux disease without esophagitis; G47.33 Obstructive sleep apnea (adult) (pediatric); Z86.73 Personal history of transient ischemic attack (TIA), and cerebral infarction without residual deficits; Z79.01 Long term (current) use of anticoagulants; Z79.82 Long term (current) use of aspirin; Z79.899 Other long term (current) drug therapy; Z95.810 Presence of automatic (implantable) cardiac defibrillator; Z95.5 Presence of coronary angioplasty implant and graft; Z87.891 Personal history of nicotine dependence

== ENCOUNTER 2018-10-23 19:30 | Emergency (ER) | payer MEDICARE ==
[~2018-10-23] VITALS: Ht 172.7 cm; Wt 115.7 kg
[~2018-10-23 19:30] MED LIST changes: +HYDR-3816 PO
--- OUTSIDE RECORDS SUMMARY | 2018-10-23 20:06 | XMS REPORT | Continuity of Care Document ---
Author Author [facility] Organization [facility] Address Unknown Phone Unavailable Allergies Active Description Code Type Severity Reaction Onset Reported/Identified Relationship to Patient Clinical Status Yes codeine [id number] Drug Allergy Severe HIVES 02/07/2012 Yes amoxicillin [id number] Drug Allergy Severe N/A 07/06/2015 Yes Penicillins [id number] Drug Allergy Severe N/A 07/06/2015 Yes ibuprofen [id number] Drug Allergy Moderate ANKLES SWELL 11/01/2016 Medications [...] NOS 06/03/2012 Ot 414.01 CORONARY ATHEROSCLEROSIS OF [place] CORON 06/03/2012 Ot 425.4 PRIM CARDIOMYOPATHY NEC [...] LEWIS MD Ot 414.01 CORONARY ATHEROSCLEROSIS OF [place] CORON 07/11/2014 THADDEUS LEWIS MD Ot 414.8 [...] 08/19/2016 KERRI WOLF MD Ot Z79.899 OTHER [facility] (CURRENT) DRUG THERAPY 08/19/2016 Ot R41.0 DISORIENTATION, [...] SYSTOLIC (CONGESTIVE) HEART FAIL 08/20/2016 DMITRY MARRUFO MEDICAL REGISTRAR Ot M25.572 PAIN IN LEFT ANKLE AND JOINTS OF LEFT FO 09/12/2016 DMITRY MARRUFO MEDICAL REGISTRAR Ot M25.572 PAIN IN LEFT ANKLE AND JOINTS OF LEFT FO 09/19/2016 DMITRY MARRUFO MEDICAL REGISTRAR Ot M25.572 PAIN IN LEFT ANKLE AND [...] 11/06/2016 ERROL HERNANDES MD Ot Z79.899 OTHER [facility] (CURRENT) DRUG THERAPY 11/06/2016 ERROL HERNANDES MD, [...] 11/07/2016 ERROL HERNANDES MD Ot Z79.899 OTHER [facility] (CURRENT) DRUG THERAPY 11/07/2016 ERROL HERNANDES MD [...] 11/12/2016 ERROL HERNANDES MD Ot Z79.899 OTHER [facility] (CURRENT) DRUG THERAPY 11/12/2016 ERROL HERNANDES MD [...] ADULT 06/04/2017 AMOS NDIAYE DO Ot Z79.01 [facility] (CURRENT) USE OF ANTICOAGULANT 06/04/2017 AMOS NDIAYE DO Ot Z79.02 [facility] (CURRENT) USE OF ANTITHROMBOTI 06/04/2017 AMOS NDIAYE [...] ADULT 06/11/2017 AMOS NDIAYE DO, Ot Z79.01 [facility] (CURRENT) USE OF ANTICOAGULANT 06/11/2017 AMOS NDIAYE DO Ot Z79.02 [facility] (CURRENT) USE OF ANTITHROMBOTI 06/11/2017 AMOS NDIAYE [...] STRIKE AG 11/23/2017 RAEGAN HERBERT Ot Y92.[address] 11/23/2017 RAEGAN HERBERT Ot Z79.01 [facility] (CURRENT) USE OF ANTICOAGULANT 11/23/2017 RAEGAN HERBERT [...] OF CORONARY ANGIOPLASTY IMPLANT 11/23/2017 RAEGAN HERBERT VICE PRESIDENT TAX Ot Z95.810 PRESENCE OF AUTOMATIC (IMPLANTABLE) CARD 11/25/2017 RAEGAN HERBERTP Ot E78.00 PURE HYPERCHOLESTEROLEMIA, UNSPECIFIED 11/25/2017 RAEGAN HERBERTP Ot G43.909 MIGRAINE, UNSP, NOT INTRACTABLE, WITHOUT 11/25/2017 RAEGAN HERBERTP Ot G47.30 SLEEP APNEA, UNSPECIFIED 11/25/2017 RAEGAN HERBERTP Ot R05 COUGH 11/25/2017 RAEGAN HERBERT VICE PRESIDENT TAX Ot R53.1 WEAKNESS 11/25/2017 RAEGAN HERBERT VICE PRESIDENT TAX Ot S09.90XA UNSPECIFIED INJURY OF HEAD, INITIAL ENCO 11/25/2017 RAEGAN HERBERTP Ot W01.198A FALL SAME LEV FROM SLIP/TRIP W STRIKE AG 11/25/2017 RAEGAN HERBERT VICE PRESIDENT TAX Ot Y92.[address] 11/25/2017 RAEGAN HERBERTP Ot Z79.01 [facility] (CURRENT) USE OF ANTICOAGULANT 11/25/2017 RAEGAN HERBERT VICE PRESIDENT TAX Ot Z82.49 FAMILY HX OF ISCHEM HEART DIS AND OTH DI 11/25/2017 RAEGAN HERBERTP Ot Z86.010 PERSONAL HISTORY OF COLONIC POLYPS 11/25/2017 RAEGAN HERBERT VICE PRESIDENT TAX Ot Z86.73 PRSNL HX OF TIA (TIA), AND CEREB INFRC W 11/25/2017 RAEGAN HERBERT VICE PRESIDENT TAX Ot Z87.19 PERSONAL HISTORY OF OTHER DISEASES OF TH 11/25/2017 RAEGAN HERBERTP Ot Z87.891 PERSONAL HISTORY OF NICOTINE DEPENDENCE 11/25/2017 PIEDADRAEGAN EstradaP Ot Z88.0 ALLERGY STATUS TO PENICILLIN 11/25/2017 PIEDAD, RAEGAN VICE PRESIDENT TAX Ot Z88.1 ALLERGY STATUS TO OTHER ANTIBIOTIC AGENT 11/25/2017 PIEDADRAEGAN Estrada VICE PRESIDENT TAX Ot Z88.5 ALLERGY STATUS TO NARCOTIC AGENT STATUS 11/25/2017 PIEDADRAEGAN Estrada VICE PRESIDENT TAX Ot Z88.6 ALLERGY STATUS TO ANALGESIC AGENT STATUS 11/25/2017 PIEDADRAEGAN Estrada VICE PRESIDENT TAX Ot Z90.49 ACQUIRED ABSENCE OF OTHER SPECIFIED PART 11/25/2017 PIEDADRAEGAN Estrada VICE PRESIDENT TAX Ot Z95.5 PRESENCE OF CORONARY ANGIOPLASTY IMPLANT 11/25/2017 PIEDAD, RAEAGN VICE PRESIDENT TAX Ot Z95.810 PRESENCE OF AUTOMATIC (IMPLANTABLE) CARD 11/29/2017 PIEDADRAEGAN EstradaP Ot E78.00 PURE HYPERCHOLESTEROLEMIA, UNSPECIFIED 11/29/2017 PIEDADRAEGAN Estrada VICE PRESIDENT TAX Ot G43.909 MIGRAINE, UNSP, NOT INTRACTABLE, WITHOUT 11/29/2017 PIEDAD, RAEGAN VICE PRESIDENT TAX Ot G47.30 SLEEP APNEA, UNSPECIFIED 11/29/2017 RAEGAN HERBERTP Ot R05 COUGH 11/29/2017 PIEDADRAEGAN Estrada VICE PRESIDENT TAX Ot R53.1 WEAKNESS 11/29/2017 PIEDADRAEGAN Estrada VICE PRESIDENT TAX Ot S09.90XA UNSPECIFIED INJURY OF HEAD, INITIAL ENCO 11/29/2017 RAEGAN HERBERTP Ot W01.198A FALL SAME LEV FROM SLIP/TRIP W STRIKE AG 11/29/2017 PIEDAD RAEGAN VICE PRESIDENT TAX Ot Y92.[address] 11/29/2017 RAEGAN HERBERT VICE PRESIDENT TAX Ot Z79.01 MINING SPECULATOR (CURRENT) USE OF ANTICOAGULANT 11/29/2017 RAEGAN HERBERT VICE PRESIDENT TAX Ot Z82.49 FAMILY HX OF ISCHEM HEART DIS AND OTH DI 11/29/2017 PIEDADRAEGAN Estrada VICE PRESIDENT TAX Ot Z86.010 PERSONAL HISTORY OF COLONIC POLYPS 11/29/2017 PIEDADRAEGAN Estrada VICE PRESIDENT TAX Ot Z86.73 PRSNL HX OF TIA (TIA), AND CEREB INFRC W 11/29/2017 RAEGAN HERBERT VICE PRESIDENT TAX Ot Z87.19 PERSONAL HISTORY OF OTHER DISEASES OF TH 11/29/2017 PIEDADRAEGAN Estrada VICE PRESIDENT TAX Ot Z87.891 PERSONAL HISTORY OF NICOTINE DEPENDENCE 11/29/2017 PIEDADRAEGAN Estrada VICE PRESIDENT TAX Ot Z88.0 ALLERGY STATUS TO PENICILLIN 11/29/2017 PIEDAD, RAEGAN VICE PRESIDENT TAX Ot Z88.1 ALLERGY STATUS TO OTHER ANTIBIOTIC [...] DO Ot I25.10 ATHSCL HEART DISEASE OF [place] CORONARY 01/07/2018 AMOS NDIAYE DO B Ot [...] DO Ot I25.10 ATHSCL HEART DISEASE OF [place] CORONARY 01/09/2018 AMOS NDIAYE DO Ot I50.22 [...] 05/15/2018 KERRI WOLF MD Ot Z79.899 OTHER [facility] (CURRENT) DRUG THERAPY 05/15/2018 Ot R41.0 DISORIENTATION, [...] Ot M16.12 UNILATERAL PRIMARY OSTEOARTHRITIS, LEFT 05/21/2018 AMBROSE PA, ANGELA K Ot I07.1 RHEUMATIC TRICUSPID INSUFFICIENCY 05/21/2018 AMBROSE CLEMENTS, ANGELA K Ot I48.91 UNSPECIFIED ATRIAL FIBRILLATION 05/21/2018 AMBROSE CLEMENTS, ANGELA K Ot I50.9 HEART FAILURE, UNSPECIFIED 05/21/2018 AMBROSE PA, ANGELA K Ot I63.9 CEREBRAL INFARCTION, UNSPECIFIED 06/12/2018 AMBROSE PA, ANGELA K Ot I07.1 RHEUMATIC TRICUSPID INSUFFICIENCY 06/12/2018 AMBROSE PA, ANGELA K Ot I48.91 UNSPECIFIED ATRIAL FIBRILLATION 06/12/2018 AMBROSE CLEMENTS, ANGELA K Ot I50.9 HEART FAILURE, UNSPECIFIED 06/12/2018 AMBROSE PA, ANGELA K Ot I63.9 CEREBRAL INFARCTION, UNSPECIFIED 06/17/2018 AMBROSE CLEMENTS, ANGELA K Ot I07.1 RHEUMATIC TRICUSPID INSUFFICIENCY 06/17/2018 AMBROSE CLEMENTS, ANGELA K Ot I48.91 UNSPECIFIED ATRIAL FIBRILLATION 06/17/2018 AMBROSE CLEMENTS, ANGELA K Ot I50.9 HEART FAILURE, UNSPECIFIED 06/17/2018 AMBROSE CLEMENTS, ANGELA K Ot I63.9 CEREBRAL INFARCTION, UNSPECIFIED 06/18/2018 GRETA ARTHUR, ERROL Campos Ot Z01.818 ENCOUNTER FOR OTHER PREPROCEDURAL EXAMIN 06/24/2018 GRETA ARTHUR, ERROL Campos Ot E11.9 TYPE 2 DIABETES MELLITUS WITHOUT COMPLIC 06/24/2018 GRETA ARTHUR, ERROL Campos Ot G47.33 OBSTRUCTIVE SLEEP APNEA (ADULT) (PEDIATR 06/24/2018 GRETA ARTHUR, ERROL Campos Ot I11.0 HYPERTENSIVE HEART DISEASE WITH HEART FA 06/24/2018 GRETA ARTHUR, ERROL Campos Ot I50.20 UNSPECIFIED SYSTOLIC (CONGESTIVE) HEART 06/24/2018 ERROL HERNANDES MD Ot K21.9 GASTRO-ESOPHAGEAL REFLUX DISEASE WITHOUT 06/24/2018 GRETA ARTHUR, ERROL Campos Ot M22.41 CHONDROMALACIA PATELLAE, RIGHT KNEE 06/24/2018 GRETA ARTHUR, ERROL Campos Ot M23.222 DERANG OF [facility] MENSC D/T 06/24/2018 ERROL HERNANDES MD, Ot M23.231 DERANG OF MEDIAL MENISCUS DUE TO OLD TEA 06/24/2018 ERROL HERNANDES MD, Ot Z79.01 [facility] (CURRENT) USE OF ANTICOAGULANT 06/24/2018 ERROL HERNANDES MD, Ot Z79.82 [facility] (CURRENT) USE OF ASPIRIN 06/24/2018 ERROL HERNANDES MD, Ot Z79.899 OTHER MINING SPECULATOR (CURRENT) DRUG THERAPY 06/24/2018 ERROL HERNANDES MD, Ot Z86.73 PRSNL HX OF TIA (TIA), AND CEREB INFRC W 06/24/2018 ERROL HERNANDES MD, Ot Z87.891 PERSONAL HISTORY OF NICOTINE DEPENDENCE 06/24/2018 ERROL HERNANDES MD, Ot Z95.5 PRESENCE OF CORONARY ANGIOPLASTY IMPLANT 06/24/2018 ERROL HERNANDES MD, Ot Z95.810 PRESENCE OF AUTOMATIC (IMPLANTABLE) CARD 06/29/2018 ERROL HERNANDES MD, Ot E11.9 TYPE 2 DIABETES MELLITUS WITHOUT COMPLIC 06/29/2018 ERROL HERNANDES MD, Ot G47.33 OBSTRUCTIVE SLEEP APNEA (ADULT) (PEDIATR 06/29/2018 ERROL HERNANDES MD, Ot I11.0 HYPERTENSIVE HEART DISEASE WITH HEART FA 06/29/2018 ERROL HERNANDES MD, Ot I50.20 UNSPECIFIED SYSTOLIC (CONGESTIVE) HEART 06/29/2018 ERROL HERNANDES MD, Ot K21.9 GASTRO-ESOPHAGEAL REFLUX DISEASE WITHOUT 06/29/2018 ERROL HERNANDES MD, Ot M22.41 CHONDROMALACIA PATELLAE, RIGHT KNEE 06/29/2018 ERROL HERNANDES MD, Ot M23.222 DERANG OF [place] OF MEDIAL MENSC D/T 06/29/2018 ERROL HERNANDES MD, Ot M23.231 DERANG OF MEDIAL MENISCUS DUE TO OLD TEA 06/29/2018 ERROL HERNANDES MD, Ot Z79.01 MINING SPECULATOR (CURRENT) USE OF ANTICOAGULANT 06/29/2018 ERROL HERNANDES MD, Ot Z79.82 MINING SPECULATOR (CURRENT) USE OF ASPIRIN 06/29/2018 ERROL HERNANDES MD, Ot Z79.899 OTHER [facility] (CURRENT) DRUG THERAPY 06/29/2018 ERROL HERNANDES MD, Ot Z86.73 PRSNL HX OF TIA (TIA), AND CEREB INFRC W 06/29/2018 ERROL HERNANDES MD, Ot Z87.891 PERSONAL HISTORY OF NICOTINE DEPENDENCE 06/29/2018 ERROL HERNANDES MD, Ot Z95.5 PRESENCE OF CORONARY ANGIOPLASTY IMPLANT 06/29/2018 ERROL HERNANDES MD, Ot Z95.810 PRESENCE OF AUTOMATIC (IMPLANTABLE) CARD Procedures There is no data. Results Test [...] 11:20 Bacteria identification in wound by culture [id number] NRG FREE TEXT EXTERNAL SENSITIVITY REPORTED 01/18/17 [...] Automated blood platelet mean volume measurement 8.9 [fo_us] 7.4-10.4 Automated blood neutrophils/100 leukocytes 62 % [...] INFLUENZA A AND B ANTIGENS BY [facility] Complete blood count (CBC) with [...] Status Pt. Type Provider Facility Loc./Unit Complaint [id number] 06/24/2018 07:36:00 06/24/2018 13:05:00 DIS Outpatient ERROL HERNANDES MD [facility] RIGHT KNEE TORN MEDIAL MENISCUS [id number] 06/17/2018 05:32:00 06/17/2018 10:18:00 DIS Outpatient ERROL HERNANDES MD [facility] PREOP RT. KNEE SCOPE [id number] 05/20/2018 12:34:00 05/20/2018 23:59:59 CLS Outpatient ANGELA CARDENAS [facility] CARD AFIB,CHF,CVA ,CAROTID ARTERY STENOSIS [id number] 03/11/2018 11:21:00 03/11/2018 23:59:59 CLS Outpatient REYNALDO MEJIA MD [facility] RAD LEFT HIP PAIN [id number] 01/07/2018 10:17:00 01/07/2018 15:10:00 DIS Outpatient AMOS NDIAYE DO [facility] SKIN LESIONS BILATERAL EARS [id number] 01/05/2018 05:42:00 01/05/2018 12:14:00 DIS Outpatient AMOS NDIAYE DO [facility] PREOP SKIN LESIONS BILATERAL EARS [id number] 11/23/2017 18:34:00 11/23/2017 22:18:00 DIS Emergency RAEGAN HERBERT [facility] ER DIZZINESS,SYNCOPE [id number] 06/04/2017 06:51:00 06/04/2017 09:40:00 DIS Outpatient AMOS NDIAYE DO [facility] ENDO SCREENING [id number] 05/30/2017 05:33:00 05/30/2017 09:16:00 DIS Outpatient AMOS NDIAYE DO [facility] PREOP SCREENING COLONOSCOPY [id number] 01/30/2017 10:40:00 01/30/2017 16:00:00 DIS Outpatient REYNALDO MEJIA MD [facility] WOUNDCARE [id number] 01/24/2017 12:31:00 01/24/2017 23:59:59 CLS Outpatient ANGELA CARDENAS [facility] CARD I48.0 AFIB, I50.22 CHF [id number] 01/16/2017 11:40:00 01/16/2017 23:59:59 CLS Outpatient REYNALDO MEJIA MD [facility] LAB T81.31XA [id number] 11/06/2016 07:33:00 11/06/2016 10:39:00 DIS Outpatient ERROL HERNANDES MD [facility] SDC RIGHT RING FINGER TRIGGER SYNDROME [id number] 11/01/2016 09:17:00 11/01/2016 10:20:00 DIS Outpatient ERROL HERNANDES MD [facility] PREOP RIGHT RING FINGER TRIGGER SYNDROME [id number] 08/19/2016 13:43:00 08/19/2016 23:59:59 CLS Outpatient DMITRY MARRUFO APRN [facility] RAD LEFT ANKLE PAIN [id number] 05/17/2016 09:12:00 05/17/2016 23:59:59 CLS Outpatient LAKSHMI SALDIVAR MD [facility] CARD I50.22 [id number] 03/27/2016 13:27:00 03/27/2016 23:59:59 CLS Outpatient ANGELA CARDENAS [facility] CARD CHF,CAROTID ARTERY STENOSIS,HTN,HLP [id number] 11/23/2015 11:40:00 11/23/2015 17:25:00 DIS Emergency ALEKSANDER HAN [facility] ER LOW BLOOD PRESSURE/ DIZZINESS [id number] 07/06/2015 12:46:00 07/08/2015 15:00:00 DIS Inpatient SUJATHA ANAYA MD [facility] 4TH SEPSIS-LIKELY DENTAL SOURCE [id number] 07/03/2015 13:00:00 07/03/2015 23:59:59 CLS Outpatient KERRI WOLF MD [facility] CARD DDD [id number] 05/25/2015 12:26:00 05/25/2015 23:59:59 CLS Outpatient SUJATHA ANAYA MD [facility] RAD NECK PAIN LEFT ARM NUMBNESS [id number] 05/13/2015 11:53:00 05/13/2015 14:07:00 DIS Emergency ALEKSANDER HAN [facility] ER R AND L FOOT PAIN [id number] 04/10/2015 10:57:00 04/10/2015 23:59:59 CLS Outpatient SUJATHA ANAYA MD [facility] RAD NECK PAIN,STIFFNESS [id number] 02/23/2015 13:40:00 02/23/2015 23:59:59 CLS Outpatient ANGELA CARDENAS [facility] CARD CHF,COPD,CVA ,HTN [id number] 10/24/2014 12:21:00 10/24/2014 23:59:59 CLS Outpatient THADDEUS LEWIS MD [facility] RAD LT SIDED ABD PAIN [id number] 08/17/2014 07:45:00 08/17/2014 23:59:59 CLS Outpatient ANGELA CARDENAS [facility] CARD CHS,COPD,HTN ,HLP [id number] 07/08/2014 15:48:00 07/11/2014 11:15:00 DIS Inpatient THADDEUS LEWIS MD [facility] CSD HYPOTENSION RENAL FAILURE [id number] 06/13/2014 12:46:00 06/13/2014 23:59:59 CLS Outpatient ANGELA CARDENAS [facility] CARD CHF,COPD,HTN ,HLP [id number] 07/29/2013 08:41:00 07/29/2013 23:59:59 CLS Outpatient LAKSHMI SALDIVAR MD [facility] CARD CHF [id number] 05/07/2013 12:12:00 05/10/2013 10:50:00 DIS Inpatient EDSON ARTHUR, LUCRECIA Russo [facility] SURGICAL SMALL BOWEL OBSTRUCTION [id number] 10/23/2018 19:31:00 ACT Emergency ERNIE ARTHUR, REX Amor [facility] ER ADB PAIN,DIZZY [id number] 12/15/2015 09:21:00 Document Registration [id number] 10/24/2014 12:21:00 Document Registration [id number] 06/03/2012 08:55:00 Document Registration [id number] 05/13/2012 07:49:00 Document Registration [id number] 05/01/2012 11:21:00 Document Registration [id number] 02/11/2012 07:24:00 Document Registration [id number] 02/07/2012 08:08:00 Document Registration [id number] 12/16/2011 10:51:00 Document Registration [id number] 09/05/2011 21:16:00 Document Registration [id number] 08/29/2009 10:29:00 Document Registration [id number] 05/25/2015 12:27:10 ACT Document Registration
[2018-10-23] MEDS ORDERED: NS IV 1000 ML 1,000 ML IV ONE (22:31)
[2018-10-23 22:55] LABS: BASOPHILS % (AUTO) 0 % (0-10); EOSINOPHILS # (AUTO) 0.1 10^3/uL (0.0-0.3); EOSINOPHILS % (AUTO) 1 % (0-10); HEMATOCRIT 45 % (40-54); HEMOGLOBIN 14.6 G/DL (13.3-17.7); LYMPHOCYTES # (AUTO) 0.9 X 10^3 (1.0-4.0); LYMPHOCYTES % (AUTO) 10 % (12-44); MEAN CORPUSCULAR HEMOGLOBIN 30 PG (25-34); MEAN CORPUSCULAR HGB CONC 33 G/DL (32-36); MEAN CORPUSCULAR VOLUME 93 FL (80-99); MEAN PLATELET VOLUME 9.1 FL (7.4-10.4); MONOCYTES # (AUTO) 0.7 X 10^3 (0.0-1.0); MONOCYTES % (AUTO) 8 % (0-12); NEUTROPHILS % (AUTO) 82 % (42-75); PLATELET COUNT 233 10^3/uL (130-400); RED CELL DISTRIBUTION WIDTH 13.8 % (10.0-14.5); WHITE BLOOD COUNT 8.5 10^3/uL (4.3-11.0)
--- NOTE | 2018-10-23 23:00 | ED Abdominal Pain ---
General Chief Complaint: Abdominal/GI Problems Stated Complaint: ADB PAIN,DIZZY Nursing Triage Note: PT PREESNTS TO ER WITH COMPLAINT OF SHARP ABD PAINS THAT STARTED AROUND 2 AM. PT STATES HE HAS BEEN HAVING N/V/D. PT STATES HE FEELS LIKE HIS STOMACH IS HARD AND FULL. Sepsis Screen: No Definite Risk Source of Information: Patient Exam Limitations: No Limitations (REX KLEIN MD) History of Present Illness Date Seen by Provider: Oct 23, 2018 Time Seen by Provider: 22:16 Initial Comments Here with report of sharp abdominal pain meds waxing and waning and is associated with vomiting and diarrhea. Started vomiting early this morning with pain starting at 2 a.m. and vomiting starting about 830 or 9. Has had nonbloody vomiting and diarrhea since. He has not passed gas through the day but has had some watery diarrhea. He is unable to eat anything and states that when he vomited it was his undigested food from yesterday. States pain is a little better currently but still feels very hard in the abdomen and distended. Does have history of multiple surgeries in cleaning partial colectomy for diverticulitis with repeat surgeries. Does have a nonincarcerated periumbilical hernia. Timing/Duration: 12-24 Hours Severity/Quality: Moderate, Severe Location: Generalized Abdomen Radiation: No Radiation Activities at Onset: None Modifying Factors: Improves With Defecating; Worsens With Eating; Improves With Resting, Improves With Vomiting Associated Symptoms: No Back Pain, No Chest Pain, No Fever/Chills; Nausea/ Vomiting, Swelling/Mass in Abdomen; No Weakness (REX KLEIN MD) Allergies and Home Medications Allergies Coded Allergies: Penicillins (Verified Allergy, Severe, 07/06/15) amoxicillin (Verified Allergy, Severe, 07/06/15) codeine (Unverified Allergy, Severe, HIVES, 02/07/12) ibuprofen (Verified Allergy, Intermediate, ANKLES SWELL, 11/01/16) Home Medications Acetaminophen 500 Mg Tablet, 1,000 MG PO Q6H PRN for PAIN, (Reported) Allopurinol 100 Mg Tablet, 100 MG PO HS, (Reported) Amiodarone HCl 200 Mg Tablet, 200 MG PO DAILY, (Reported) Apixaban 5 Mg Tablet, 5 MG PO BID, (Reported) Carvedilol 6.25 Mg Tablet, 6.25 MG PO BID, (Reported) Cholecalciferol (Vitamin D3) 1,000 Unit Tablet, 1,000 UNIT PO HS, (Reported) Finasteride 5 Mg Tablet, 5 MG PO DAILY, (Reported) Hydrocodone/Acetaminophen 1 Each Tablet, 1 EACH PO Q4H PRN for PAIN-MODERATE Prescribed by: NAVID ARREDONDO on 06/24/18 1217 Sacubitril/Valsartan 1 Each Tablet, 1 TAB PO BID, (Reported) Tamsulosin HCl 0.4 Mg Cap.er.24h, 0.4 MG PO HS, (Reported) Tramadol HCl 50 Mg Tablet, 50 MG PO BID, (Reported) Ubidecarenone 100 Mg Capsule, 100 MG PO DAILY, (Reported) Patient Home Medication List Home Medication List Reviewed: Yes (REX KLEIN MD) Review of Systems Review of Systems Constitutional: see HPI; No chills, No fever EENTM: No Symptoms Reported Respiratory: No Symptoms Reported Cardiovascular: No Symptoms Reported Gastrointestinal: See HPI, Abdomen Distended, Abdominal Pain, Diarrhea, Nausea , Vomiting Genitourinary: No Symptoms Reported Musculoskeletal: no symptoms reported Skin: no symptoms reported (REX KLEIN MD) All Other Systems Reviewed Negative Unless Noted: Yes (REX KLEIN MD) Past Vetcgdv-Rfgvax-Xfmpnj Hx Past Med/Social Hx: Reviewed Nursing Past Med/Soc Hx (REX KLEIN MD) Patient Social History Alcohol Use: Denies Use Recreational Drug Use: No Smoking Status: Former Smoker Type Used: Cigarettes Former Smoker, Quit: Nov 01, 1983 2nd Hand Smoke Exposure: No Recent Foreign Travel: No Contact w/Someone Who Travel: No Recent Infectious Disease Expo: No Recent Hopitalizations: No (REX KLEIN MD) Immunizations Up To Date Tetanus Booster (TDap): Unknown PED Vaccines UTD: No Date of Pneumonia Vaccine: Jul 09, 2014 Date of Influenza Vaccine: Jun 03, 2017 (REX KLEIN MD) Seasonal Allergies Seasonal Allergies: Yes (REX KLEIN MD) Past Medical History Surgeries: Yes (SHOULDER X2, COLON RESECTION-DIVERTIC, STENT CAROTID ARTERY) Abdominal, Appendectomy, Defibrillator, Gallbladder, Pacemaker, Tonsillectomy Respiratory: Yes Sleep Apnea Currently Using CPAP: Yes Currently Using BIPAP: No Cardiac: Yes (arrhythmia, PACEMAKER/DEFIB, lower extremity edema, right carotid stent) High Cholesterol, Hypotension, Irregular Heartbeat Neurological: Yes Stroke Reproductive Disorders: No Sexually Transmitted Disease: No HIV/AIDS: No Gastrointestinal: Yes ( COLON RESECTION) Diverticulosis, Polyps Musculoskeletal: Yes (3 LEFT FOOT FRACTURES) Arthritis Endocrine: No Loss of Vision: Bilateral Hearing Impairment: Bilateral Hearing Aide Cancer: No Psychosocial: No Integumentary: No (SKIN LESIONS) Blood Disorders: No Adverse Reaction/Blood Tranf: No (N/A) (RXE KLEIN MD) Family Medical History Reviewed Nursing Family Hx (REX KLEIN MD) Patient reports no known family medical history. Heart Disease, Diabetes, Hypertension (REX KLEIN MD) Physical Exam Vital Signs Vital Signs - First Documented 10/23/18 20:38 Temp 98.6 Pulse 85 Resp 20 B/P (MAP) 122/65 (84) Pulse Ox 95 O2 Delivery Room Air (DEYANIRA ROSA) Vital Signs Capillary Refill : Less Than 3 Seconds (REX KLEIN MD) Height/Weight/BMI Height: 5'8.00" Weight: 255lbs. 0.0oz. 115.159241xw; 39.7 BMI Method:Stated General Appearance: WD/WN, no apparent distress HEENT: PERRL/EOMI, pharynx normal Neck: full range of motion, supple Respiratory: lungs clear, normal breath sounds Cardiovascular: regular rate, rhythm, no murmur Peripheral Pulses: 2+ Dorsalis Pedis (R), 2+ Left Dors-Pedis (L), 2+ Radial Pulses (R), 2+ Radial Pulses (L) Gastrointestinal: abnormal bowel sounds (hyper bowel sounds that are Tinic sounding), distended; No guarding, No rebound; tenderness; No mass Extremities: non-tender, normal inspection Back: normal inspection, no CVA tenderness, no vertebral tenderness Neurologic/Psychiatric: alert, oriented x 3 Skin: normal color, warm/dry (REX KLEIN MD) Progress/Results/Core Measures Results/Orders Lab Results Laboratory Tests Test 10/23/18 22:40 Range/Units White Blood Count 8.5 4.3-11.0 10^3/uL Red Blood Count 4.80 4.35-5.85 10^6/uL Hemoglobin 14.6 13.3-17.7 G/DL Hematocrit 45 40-54 % Mean Corpuscular Volume 93 80-99 FL Mean Corpuscular Hemoglobin 30 25-34 PG Mean Corpuscular Hemoglobin Concent 33 32-36 G/DL Red Cell Distribution Width 13.8 10.0-14.5 % Platelet Count 233 130-400 10^3/uL Mean Platelet Volume 9.1 7.4-10.4 FL Neutrophils (%) (Auto) 82 H 42-75 % Lymphocytes (%) (Auto) 10 L 12-44 % Monocytes (%) (Auto) 8 0-12 % Eosinophils (%) (Auto) 1 0-10 % Basophils (%) (Auto) 0 0-10 % Neutrophils # (Auto) 7.0 1.8-7.8 X 10^3 Lymphocytes # (Auto) 0.9 L 1.0-4.0 X 10^3 Monocytes # (Auto) 0.7 0.0-1.0 X 10^3 Eosinophils # (Auto) 0.1 0.0-0.3 10^3/uL Basophils # (Auto) 0.0 0.0-0.1 10^3/uL Sodium Level 137 135-145 MMOL/L Potassium Level 4.8 3.6-5.0 MMOL/L Chloride Level 106 98-107 MMOL/L Carbon Dioxide Level 16 L 21-32 MMOL/L Anion Gap 15 H 5-14 MMOL/L Blood Urea Nitrogen 39 H 7-18 MG/DL Creatinine 2.24 H 0.60-1.30 MG/DL Estimat Glomerular Filtration Rate 29 BUN/Creatinine Ratio 17 Glucose Level 115 H 70-105 MG/DL Calcium Level 9.4 8.5-10.1 MG/DL Corrected Calcium 9.2 8.5-10.1 MG/DL Total Bilirubin 0.8 0.1-1.0 MG/DL Aspartate Amino Transf (AST/SGOT) 20 5-34 U/L Alanine Aminotransferase (ALT/SGPT) 15 0-55 U/L Alkaline Phosphatase 72 40-136 U/L C-Reactive Protein High Sensitivity 2.52 H 0.00-0.50 MG/DL Total Protein 7.3 6.4-8.2 GM/DL Albumin 4.2 3.2-4.5 GM/DL Lipase 14 8-78 U/L (DEYANIRA ROSA STUDENT) Medications Given in ED Current Medications Medications Dose Ordered Sig/Xuan Route Start Time Stop Time Status Last Admin Dose Admin Sodium Chloride 1,000 ml @ 0 mls/hr Q0M ONCE IV 10/23/18 22:31 10/23/18 22:33 DC 10/23/18 22:47 0 MLS/HR (DEYANIRA ROSA STUDENT) Vital Signs/I&O 10/23/18 20:38 Temp 98.6 Pulse 85 Resp 20 B/P (MAP) 122/65 (84) Pulse Ox 95 O2 Delivery Room Air 10/24/18 00:00 Intake Total 1000 ml Balance 1000 ml (DEYANIRA ROSA) Blood Pressure Mean: 84 Progress Progress Note : Progress Note Seen and evaluated. IV, labs, normal saline [address] abdomen pelvis pending labs. Monitor patient. 0115: Patient doing better. Has tolerated sips of fluid. CT complete results noted. We will send him home with a go pack of ondansetron with prescription. Discharged home with return precautions. Patient and family verbalize understanding instructions and agreement with plan. (REX KLEIN MD) Progress Note : Progress Note 00:40 CT abdomen and pelvis back showing possible gastroenteritis, anterior abdominal wall hernia with narrow neck containing colon, no evidence of bowel obstruction (DEYANIRA ROSA STUDENT) Diagnostic Imaging Diagonstic Imaging: CT Plain Films/CT/US/NM/MRI: abdomen, pelvis Comments CT abdomen and pelvis without IV contrast Impression: possible gastroenteritis, anterior abdominal wall hernia with narrow neck containing colon, no evidence of bowel obstruction Time of Consult: 00:42 Reviewed: Reviewed [place] Hawk Study, Reviewed by Me (DEYANIRA ROSA STUDENT) Departure Impression Primary Impression: Nausea and vomiting Qualified Codes: R11.2 - Nausea with vomiting, unspecified Additional Impression: Diarrhea Qualified Codes: R19.7 - Diarrhea, unspecified Disposition: 01 HOME, SELF-CARE Condition: Improved Departure-Patient Inst. Decision time for Depature: 01:18 (REX KLEIN MD) Referrals: REYNALDO MEJIA MD (PCP/Family) Primary Care Physician Patient Instructions: Acute Abdomen (Belly Pain), Adult (DC), Diarrhea in Adolescents and Adults, Nausea and Vomiting, Adult (DC) Add. Discharge Instructions: All discharge instructions reviewed with patient and/or family. Voiced understanding. Take medications as directed. Clear liquid diet for the next 24 hours and then advance as tolerated. You should take small sips frequently to stay hydrated. You may eat light foods such as toast, dry cereal crackers. You may advance as tolerated. Return for worse pain, fever, vomiting, weakness, breathing problems or other concerns as needed. Follow-up with your doctor for recheck and further evaluation within one week. Scripts Ondansetron (Ondansetron Odt) 4 Mg Tab.rapdis 4 MG PO Q6H PRN for NAUSEA/VOMITING, #8 TAB 0 Refills Prov: REX KLEIN MD 10/24/18 Copy Copies To 1: REYNALDO MEJIA MD, TIMOTHY D MD Oct 23, 2018 23:00 DEYANIRA ROSA STUDENT Oct 24, 2018 00:42
[2018-10-23 23:17] LABS: ALBUMIN 4.2 GM/DL (3.2-4.5); BILIRUBIN,TOTAL 0.8 MG/DL (0.1-1.0); CALCIUM 9.4 MG/DL (8.5-10.1); CREATININE SERUM 2.24 MG/DL (0.60-1.30); POTASSIUM 4.8 MMOL/L (3.6-5.0); TOTAL PROTEIN 7.3 GM/DL (6.4-8.2)
[2018-10-24] MEDS ORDERED: ONDA4TAB11 PO (01:20)
[2018-10-24] MEDS ORDERED: RX-ONDANSETRON 4 MG ODT (ZOFRAN) PPK #4 PO STA (01:21)
[2018-10-24 01:37] VITALS: BP 128/70
--- NOTE | 2018-10-24 06:58 | Diagnostic Imaging Report ---
PROCEDURE: CT abdomen and pelvis without contrast. TECHNIQUE: Multiple contiguous axial images were obtained through the abdomen and pelvis without the use of intravenous contrast. INDICATION: Pain. Exam compared 10/24/2015. FINDINGS: Periumbilical ventral abdominal wall hernias are redemonstrated finding. Hernial orifice with cephalocaudal diameter of 2.5 cm. The degree of herniated viscus through the defect has increased from the prior comprised of at least some small bowel. There may be an element of redundant transverse colon passing into the defect. There is air and fluid throughout the lumen of the abdominal and pelvic small and large bowel suggestive of nonspecific gastroenteritis or hypermodal state. No bowel obstruction. No inflammatory changes within the hernia sac. No bowel wall thickening. The kidneys are unobstructed. There is a small hiatal hernia. Pancreas, adrenals and spleen unremarkable and nonacute. The aorta is calcified but nonaneurysmal. IMPRESSION: 1. Periumbilical ventral abdominal wall hernia without secondary features of obstruction, incarceration or perforation. The abdominopelvic small and large bowel lumen contains air and a substantial fluid load which may reflect nonspecific hypermodal state including gastroenteritis. No segmental bowel wall thickening or focal inflammatory change, however identified. 2. No other significant finding. Dictated by: Dictated on workstation # [id number]
== END 2018-10-24 01:33 | disposition home or self-care (01) ==
LOC: EDUNIT# 19:30 → ER 19:31
DX: R11.2 Nausea with vomiting, unspecified (principal); R19.7 Diarrhea, unspecified; G47.30 Sleep apnea, unspecified; E78.00 Pure hypercholesterolemia, unspecified; I10 Essential (primary) hypertension; Z82.49 Family history of ischemic heart disease and other diseases of the circulatory system; Z86.010 Personal history of colon polyps; Z86.73 Personal history of transient ischemic attack (TIA), and cerebral infarction without residual deficits; Z88.0 Allergy status to penicillin; Z88.5 Allergy status to narcotic agent; Z88.6 Allergy status to analgesic agent; Z87.19 Personal history of other diseases of the digestive system; Z90.49 Acquired absence of other specified parts of digestive tract; Z79.01 Long term (current) use of anticoagulants; Z87.891 Personal history of nicotine dependence; Z95.5 Presence of coronary angioplasty implant and graft; Z95.810 Presence of automatic (implantable) cardiac defibrillator; Z90.89 Acquired absence of other organs; Z95.0 Presence of cardiac pacemaker
CPT/HCPCS: 36415; 74176; 80053; 83690; 85025; 86141

== ENCOUNTER 2019-04-16 09:42 | Emergency (ER) | payer MEDICARE ==
[~2019-04-16] VITALS: Ht 174 cm; Wt 113.4 kg
[~2019-04-16 09:42] MED LIST changes: +ONDA4TAB11 PO
[2019-04-16] MEDS ORDERED: MECLIZINE 25 MG (ANTIVERT) TAB PO ONE (11:00)
[2019-04-16] MEDS ORDERED: NS IV 1000 ML 1,000 ML IV SCH (11:00)
--- NOTE | 2019-04-16 11:01 | ED General ---
General Stated Complaint: WEAKNESS, DIZZINESS, N/V/D Source of Information: Patient Exam Limitations: No Limitations History of Present Illness Date Seen by Provider: Apr 16, 2019 Time Seen by Provider: 10:59 Initial Comments To ER per private vehicle from home with reports of dizziness upon moving, it resolves at rest. He gets very dizzy upon standing or with laying down, any certain position change worsens this. He just noticed it this morning. Starting about 9 days ago he developed some diarrhea which was nearly every hour for a couple of days. At one point stools were black though he does report taking P epto-Bismol. He's also had some fullness and discomfort in the suprapubic left side of the abdomen. History of bowel resection for diverticulitis. He vomited last night. Today the abdominal pain seems to resolve, the diarrhea has resolved he now has dizziness. Timing/Duration: 1-2 Days Severity: Moderate Associated Systoms: Nausea/Vomiting, Weakness Allergies and Home Medications Allergies Coded Allergies: Penicillins (Verified Allergy, Severe, 07/06/15) amoxicillin (Verified Allergy, Severe, 07/06/15) codeine (Unverified Allergy, Severe, HIVES, 02/07/12) ibuprofen (Verified Allergy, Intermediate, ANKLES SWELL, 11/01/16) Home Medications Acetaminophen 500 Mg Tablet, 1,000 MG PO Q6H PRN for PAIN, (Reported) Allopurinol 100 Mg Tablet, 100 MG PO HS, (Reported) Amiodarone HCl 200 Mg Tablet, 200 MG PO DAILY, (Reported) Apixaban 5 Mg Tablet, 5 MG PO BID, (Reported) Carvedilol 6.25 Mg Tablet, 6.25 MG PO BID, (Reported) Cholecalciferol (Vitamin D3) 1,000 Unit Tablet, 1,000 UNIT PO HS, (Reported) Finasteride 5 Mg Tablet, 5 MG PO DAILY, (Reported) Hydrocodone/Acetaminophen 1 Each Tablet, 1 EACH PO Q4H PRN for PAIN-MODERATE Prescribed by: NAVID ARREDONDO on 06/24/18 1217 Ondansetron 4 Mg Tab.rapdis, 4 MG PO Q6H PRN for NAUSEA/VOMITING Prescribed by: REX KLEIN on 10/24/18 0120 Sacubitril/Valsartan 1 Each Tablet, 1 TAB PO BID, (Reported) Tamsulosin HCl 0.4 Mg Cap.er.24h, 0.4 MG PO HS, (Reported) Tramadol HCl 50 Mg Tablet, 50 MG PO BID, (Reported) Ubidecarenone 100 Mg Capsule, 100 MG PO DAILY, (Reported) Patient Home Medication List Home Medication List Reviewed: Yes Review of Systems Review of Systems Constitutional: see HPI; No chills; dizziness; No fever EENTM: see HPI Respiratory: no symptoms reported Cardiovascular: no symptoms reported Gastrointestinal: abdominal pain, diarrhea, nausea, vomiting Genitourinary: no symptoms reported Musculoskeletal: no symptoms reported Skin: no symptoms reported Psychiatric/Neurological: No Symptoms Reported Hematologic/Lymphatic: No Symptoms Reported Immunological/Allergic: no symptoms reported Past Yivflow-Wglhqh-Tlzfnw Hx Patient Social History Type Used: Cigarettes Former Smoker, Quit: Nov 01, 1983 2nd Hand Smoke Exposure: No Recent Foreign Travel: No Contact w/Someone Who Travel: No Recent Hopitalizations: No Immunizations Up To Date Tetanus Booster (TDap): Unknown PED Vaccines UTD: No Date of Pneumonia Vaccine: Jul 09, 2014 Date of Influenza Vaccine: Jun 03, 2017 Seasonal Allergies Seasonal Allergies: Yes Past Medical History Surgeries: Yes (SHOULDER X2, COLON RESECTION-DIVERTIC, STENT CAROTID ARTERY) Abdominal, Appendectomy, Defibrillator, Gallbladder, Pacemaker, Tonsillectomy Respiratory: Yes Sleep Apnea Currently Using CPAP: Yes Currently Using BIPAP: No Cardiac: Yes (arrhythmia, PACEMAKER/DEFIB, lower extremity edema, right carotid stent) High Cholesterol, Hypotension, Irregular Heartbeat Neurological: Yes Stroke Reproductive Disorders: No Sexually Transmitted Disease: No HIV/AIDS: No Gastrointestinal: Yes ( COLON RESECTION) Diverticulosis, Polyps Musculoskeletal: Yes (3 LEFT FOOT FRACTURES) Arthritis Endocrine: No Loss of Vision: Bilateral Hearing Impairment: Bilateral Hearing Aide Cancer: No Psychosocial: No Integumentary: No (SKIN LESIONS) Blood Disorders: No Adverse Reaction/Blood Tranf: No (N/A) Family Medical History Patient reports no known family medical history. Heart Disease, Diabetes, Hypertension Physical Exam Vital Signs Vital Signs - First Documented 04/16/19 10:39 Temp 98.7 Pulse 65 Resp 12 B/P (MAP) 133/87 (102) Pulse Ox 98 O2 Delivery Room Air Capillary Refill : Height, Weight, BMI Height: 5'8.00" Weight: 255lbs. 0.0oz. 115.098861pd; 39.7 BMI Method:Stated General Appearance: No Apparent Distress, WD/WN Eyes: Bilateral Eye Normal Inspection, Bilateral Eye PERRL, Bilateral Eye EOMI HEENT: PERRL/EOMI Neck: Full Range of Motion, Normal Inspection Respiratory: Lungs Clear, Normal Breath Sounds (Y), No Accessory Muscle Use, No Respiratory Distress Cardiovascular: Regular Rate, Rhythm, Normal Peripheral Pulses Gastrointestinal: Normal Bowel Sounds, Non Tender, Soft Extremity: Normal Capillary Refill, Normal Inspection Neurologic/Psychiatric: Alert, Oriented x3 Skin: Normal Color, Warm/Dry Progress/Results/Core Measures Suspected Sepsis SIRS Temperature: Pulse: Respiratory Rate: Laboratory Tests 04/16/19 10:53: White Blood Count 6.8 Blood Pressure / Mean: Laboratory Tests 04/16/19 10:53: Creatinine 1.54H, Platelet Count 241, Total Bilirubin 0.5 Results/Orders Lab Results Laboratory Tests Test 04/16/19 10:53 04/16/19 12:05 Range/Units White Blood Count 6.8 4.3-11.0 10^3/uL Red Blood Count 4.31 L 4.35-5.85 10^6/uL Hemoglobin 13.4 13.3-17.7 G/DL Hematocrit 40 40-54 % Mean Corpuscular Volume 92 80-99 FL Mean Corpuscular Hemoglobin 31 25-34 PG Mean Corpuscular Hemoglobin Concent 34 32-36 G/DL Red Cell Distribution Width 14.3 10.0-14.5 % Platelet Count 241 130-400 10^3/uL Mean Platelet Volume 9.2 7.4-10.4 FL Neutrophils (%) (Auto) 66 42-75 % Lymphocytes (%) (Auto) 21 12-44 % Monocytes (%) (Auto) 11 0-12 % Eosinophils (%) (Auto) 1 0-10 % Basophils (%) (Auto) 0 0-10 % Neutrophils # (Auto) 4.5 1.8-7.8 X 10^3 Lymphocytes # (Auto) 1.4 1.0-4.0 X 10^3 Monocytes # (Auto) 0.8 0.0-1.0 X 10^3 Eosinophils # (Auto) 0.1 0.0-0.3 10^3/uL Basophils # (Auto) 0.0 0.0-0.1 10^3/uL Sodium Level 134 L 135-145 MMOL/L Potassium Level 4.5 3.6-5.0 MMOL/L Chloride Level 109 H 98-107 MMOL/L Carbon Dioxide Level 16 L 21-32 MMOL/L Anion Gap 9 5-14 MMOL/L Blood Urea Nitrogen 31 H 7-18 MG/DL Creatinine 1.54 H 0.60-1.30 MG/DL Estimat Glomerular Filtration Rate 44 BUN/Creatinine Ratio 20 Glucose Level 120 H 70-105 MG/DL Calcium Level 9.1 8.5-10.1 MG/DL Corrected Calcium 9.3 8.5-10.1 MG/DL Total Bilirubin 0.5 0.1-1.0 MG/DL Aspartate Amino Transf (AST/SGOT) 18 5-34 U/L Alanine Aminotransferase (ALT/SGPT) 25 0-55 U/L Alkaline Phosphatase 56 40-136 U/L Total Protein 6.5 6.4-8.2 GM/DL Albumin 3.7 3.2-4.5 GM/DL My Orders Orders - SHEILA JAEGER APRN Cbc With Automated Diff (04/16/19 10:57) Comprehensive Metabolic Panel (04/16/19 10:57) Ua Culture If Indicated (04/16/19 10:57) Ed Iv/Invasive Line Start (04/16/19 10:57) Ct Abdomen/Pelvis Wo (04/16/19 10:57) Ns Iv 1000 Ml (Sodium Chloride 0.9%) (04/16/19 11:00) Meclizine Tablet (Antivert Tablet) (04/16/19 11:00) Medications Given in ED Current Medications Medications Dose Ordered Sig/Xuan Route Start Time Stop Time Status Last Admin Dose Admin Meclizine HCl 25 mg ONCE ONCE PO 04/16/19 11:00 04/16/19 11:01 DC 04/16/19 11:17 25 MG Vital Signs/I&O 04/16/19 10:39 Temp 98.7 Pulse 65 Resp 12 B/P (MAP) 133/87 (102) Pulse Ox 98 O2 Delivery Room Air Capillary Refill : Departure Impression Primary Impression: Volume depletion Additional Impression: Vertigo Disposition: 01 HOME, SELF-CARE Condition: Stable Departure-Patient Inst. Decision time for Depature: 12:14 Referrals: REYNALDO MEJIA MD (PCP/Family) Primary Care Physician Patient Instructions: Vertigo (a Type of Dizziness) Scripts Meclizine HCl (Meclizine HCl) 25 Mg Tablet 25 MG PO TID PRN for DIZZINESS, #14 TAB Prov: SHEILA JAEGER APRN 04/16/19 SHEILA JAEGER APRN Apr 16, 2019 11:01
[2019-04-16 11:11] LABS: BASOPHILS % (AUTO) 0 % (0-10); EOSINOPHILS # (AUTO) 0.1 10^3/uL (0.0-0.3); EOSINOPHILS % (AUTO) 1 % (0-10); HEMATOCRIT 40 % (40-54); HEMOGLOBIN 13.4 G/DL (13.3-17.7); LYMPHOCYTES # (AUTO) 1.4 X 10^3 (1.0-4.0); LYMPHOCYTES % (AUTO) 21 % (12-44); MEAN CORPUSCULAR HEMOGLOBIN 31 PG (25-34); MEAN CORPUSCULAR HGB CONC 34 G/DL (32-36); MEAN CORPUSCULAR VOLUME 92 FL (80-99); MEAN PLATELET VOLUME 9.2 FL (7.4-10.4); MONOCYTES # (AUTO) 0.8 X 10^3 (0.0-1.0); MONOCYTES % (AUTO) 11 % (0-12); NEUTROPHILS # (AUTO) 4.5 X 10^3 (1.8-7.8); NEUTROPHILS % (AUTO) 66 % (42-75); PLATELET COUNT 241 10^3/uL (130-400); RED CELL DISTRIBUTION WIDTH 14.3 % (10.0-14.5); WHITE BLOOD COUNT 6.8 10^3/uL (4.3-11.0)
[2019-04-16 11:27] LABS: ALBUMIN 3.7 GM/DL (3.2-4.5); BILIRUBIN,TOTAL 0.5 MG/DL (0.1-1.0); CALCIUM 9.1 MG/DL (8.5-10.1); CREATININE SERUM 1.54 MG/DL (0.60-1.30); POTASSIUM 4.5 MMOL/L (3.6-5.0); TOTAL PROTEIN 6.5 GM/DL (6.4-8.2)
--- NOTE | 2019-04-16 11:42 | Diagnostic Imaging Report ---
PROCEDURE: CT abdomen and pelvis without contrast. TECHNIQUE: Multiple contiguous axial images were obtained through the abdomen and pelvis without the use of intravenous contrast. Auto Exposure Controls were utilized during the CT exam to meet ALARA standards for radiation dose reduction. INDICATION: Pelvic pain. FINDINGS: Comparison is 10/23/2018. Limited views of the lower thorax reveal mild atelectasis in the lung bases. The left ventricle is dilated. Liver is normal. Gallbladder is absent. No biliary ductal dilation. Pancreas, spleen and adrenal glands are normal. There are multiple small cysts in the kidneys. No suspicious renal lesions. No hydronephrosis or stones. Urinary bladder is normal. Prostate is normal. There is extensive diverticulosis. No diverticulitis. 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 No free fluid or air is seen. No bowel obstruction or inflammation. There are fat-containing bilateral inguinal hernias. Abdominal aorta is atherosclerotic but normal in caliber. There are no suspicious osseous lesions. IMPRESSION: 1. No acute abnormality in the abdomen or pelvis. 2. 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 Dictated by: Dictated on workstation # [id number]
[2019-04-16] MEDS ORDERED: MECL-106 PO (12:15)
[2019-04-16 12:20] LABS: BILIRUBIN,URINE NEGATIVE (NEGATIVE); GLUCOSE, URINE (UA) NEGATIVE (NEGATIVE); KETONES,URINE NEGATIVE (NEGATIVE); LEUKOCYTE ESTERASE ,URINE NEGATIVE (NEGATIVE); NITRITE,URINE NEGATIVE (NEGATIVE); PH,URINE 5 (5-9); PROTEIN,URINE NEGATIVE (NEGATIVE); UROBILINOGEN,URINE NORMAL (NORMAL)
[2019-04-16 12:21] LABS: BACTERIA,URINE NEGATIVE /HPF; CLARITY,URINE CLEAR; COLOR,URINE YELLOW; SQUAMOUS EPITHELIAL CELL,UR RARE /HPF; WBC,URINE 0-2 /HPF
[2019-04-16 12:57] VITALS: BP 107/64
== END 2019-04-16 13:00 | disposition home or self-care (01) ==
LOC: EDUNIT# 09:42 → ER 09:44
DX: E86.9 Volume depletion, unspecified (principal); R42 Dizziness and giddiness; E78.00 Pure hypercholesterolemia, unspecified; G47.30 Sleep apnea, unspecified; Z95.810 Presence of automatic (implantable) cardiac defibrillator; Z99.89 Dependence on other enabling machines and devices; Z86.73 Personal history of transient ischemic attack (TIA), and cerebral infarction without residual deficits; Z87.19 Personal history of other diseases of the digestive system; Z88.0 Allergy status to penicillin; Z88.5 Allergy status to narcotic agent; Z88.6 Allergy status to analgesic agent; Z79.01 Long term (current) use of anticoagulants; Z87.891 Personal history of nicotine dependence; Z90.49 Acquired absence of other specified parts of digestive tract; Z90.89 Acquired absence of other organs; Z95.5 Presence of coronary angioplasty implant and graft
CPT/HCPCS: 36415; 74176; 80053; 81000; 85025; 96360

== ENCOUNTER → 2019-06-18 | Outpatient (CLI) | payer MEDICARE ==
[~2019-06-18] MED LIST changes: +MECL-106 PO
--- NOTE | 2019-06-18 11:58 | Diagnostic Imaging Report ---
INDICATION: Dizziness TECHNIQUE: Routine non contrast-enhanced axial images were obtained from the skull base to the vertex. Auto Exposure Controls were utilized during the CT exam to meet ALARA standards for radiation dose reduction COMPARISON: 11/23/2017 FINDINGS: The ventricles and cortical sulci are diffusely prominent, compatible with age-related volume loss. There are confluent areas of abnormal, low attenuation in the periventricular white matter. This is consistent with chronic small vessel ischemic changes. There is no midline shift or mass-effect. No acute intra-axial hemorrhage is seen. There are no abnormal areas of increased or decreased density to suggest acute hemorrhage or edema. No extra-axial masses or collections are present. The bony calvarium is intact. The visualized paranasal sinuses are unremarkable. The mastoid air cells are clear. IMPRESSION: 1. No acute intracranial abnormality. No CT evidence of mass, acute infarct or intracranial hemorrhage. 2. Chronic small vessel ischemic changes in the deep white matter. Dictated by: Dictated on workstation # [id number]
== END ==
LOC: RAD 11:04
PROVIDERS: ATTEND Physician Assistant
DX: I67.82 Cerebral ischemia (principal); R42 Dizziness and giddiness
CPT/HCPCS: 70450

== ENCOUNTER → 2019-06-18 | Outpatient (CLI) | payer MEDICARE | LOC: CARD 09:55 | PROVIDERS: ATTEND Internal Medicine Cardiovascular Disease | DX: I08.1 Rheumatic disorders of both mitral and tricuspid valves (principal); I11.0 Hypertensive heart disease with heart failure; I50.9 Heart failure, unspecified; G47.33 Obstructive sleep apnea (adult) (pediatric); E78.5 Hyperlipidemia, unspecified | CPT/HCPCS: 93306 ==

== ENCOUNTER 2019-06-29 10:20 | Outpatient (CLI) | payer MEDICARE ==
[~2019-06-29] VITALS: Ht 172.7 cm; Wt 113.6 kg
== END 2019-06-29 12:00 | disposition home or self-care (01) ==
LOC: PREOP 10:20
PROVIDERS: ATTEND Specialist
DX: Z01.818 Encounter for other preprocedural examination (principal)

== ENCOUNTER 2019-07-02 08:58 | Day surgery (SDC) | payer MEDICARE ==
[~2019-07-02] VITALS: Ht 172 cm; Wt 113.6 kg
[2019-07-02] MEDS ORDERED: POVIDONE (BETADINE) OPHTH SOLN 5% 30 ML OP ONE (09:15)
[2019-07-02] MEDS ORDERED: TIMOLOL MALEATE 0.5% 5 ML (TIMOPTIC) BTL OU PRN (09:15)
[2019-07-02] MEDS ORDERED: MOXIFLOXACIN OPHTH SOLN 5 MG/ML 0.3 ML SYRINGE OP ONE (09:15)
[2019-07-02] MEDS ORDERED: LIDOCAINE PF 1% 2 ML AMP IR PRN (09:15)
[2019-07-02] MEDS: TETRACAINE 0.5% OPHTH SOLN 4 ML BTL (SINGLE DOSE ONLY) OU PRN ×4 (09:24→09:54)
[2019-07-02] MEDS: CYCLOPENTOLATE 1% (CYCLOGYL) 2 ML DROPS OP SCH ×3 (09:39→09:54)
[2019-07-02] MEDS: PHENYLEPHRINE 10% OPHTH (NEO-SYN) 5 ML BTL OU SCH ×3 (09:39→09:54)
[2019-07-02 09:49] VITALS: BP 132/84
--- NOTE | 2019-07-02 10:25 | Ophthalmologist Pre-Op Note ---
Pre-Operative Progress Note H&P Reviewed The H&P was reviewed, patient examined and no changes noted. Date H&P Reviewed: Jul 02, 2019 Time H&P Reviewed: 10:25 Pre-Op Dx Cataract, Right Eye RITO MANE MD Jul 02, 2019 10:25
[2019-07-02] MEDS ORDERED: MIDAZOLAM 2 MG/2 ML (VERSED) VIAL ONE (10:30)
--- NOTE | 2019-07-02 10:50 | Ophthalmology Operative Report ---
Cataract removal/placement IOL PREOPERATIVE DIAGNOSIS: Cataract Right Eye POSTOPERATIVE DIAGNOSIS: Cataract Right Eye PROCEDURE: Cataract removal and placement of posterior chamber implant, right eye SURGEON: Joshua Mane ANESTHESIA: Topical with sedation COMPLICATIONS: None ESTIMATED BLOOD LOSS: Minimal DESCRIPTION OF PROCEDURE: After proper informed consent was obtained, the patient, a 79 male, was taken to the Operating Room and the right eye was anesthetized with tetracaine. The right eye was then prepped and draped in the usual manner. A wire lid speculum was placed. A paracentesis was made at the left hand position. Preservative free lidocaine was injected into the anterior chamber followed by viscoelastic. A clear corneal incision was made in the temporal position. A capsulorrhexis was preformed and the central nuclear and cortical material were removed. The posterior capsule was polished and Gregory 20.5 AU00T0 IOL was placed into the capsular bag. The residual viscoelastic was aspirated and balanced saline solution was injected into the anterior chamber. Moxifloxacin was injected into the anterior chamber. The wound was checked and found to be water tight. The patient tolerated the procedure well without complications. JOSHUA MANE MD Jul 02, 2019 10:50
[2019-07-02 11:00] VITALS: BP 121/72
[2019-07-02] MEDS ORDERED: acetaZOLAMIDE ER 500 MG CAP (DIAMOX SEQUELS) PO ONE (11:00)
--- NOTE | 2019-07-02 12:05 | Anesthesia-General Post-Op ---
MAC Patient Condition Mental Status/LOC: Same as Preop Cardiovascular: Satisfactory Nausea/Vomiting: Absent Respiratory: Satisfactory Pain: Controlled Complications: Absent Post Op Complications Complications None Follow Up Care/Instructions Patient Instructions None needed. Anesthesiology Discharge Order Discharge Order Patient is doing well, no complaints, stable vital signs, no apparent adverse anesthesia problems. No complications reported per nursing. GINI STREET CRNA Jul 02, 2019 12:05
== END 2019-07-02 11:00 | disposition home or self-care (01) ==
LOC: SDC 08:58
PROVIDERS: ATTEND Specialist
DX: H25.11 Age-related nuclear cataract, right eye (principal); I25.10 Atherosclerotic heart disease of native coronary artery without angina pectoris; I50.9 Heart failure, unspecified; M19.90 Unspecified osteoarthritis, unspecified site; G47.33 Obstructive sleep apnea (adult) (pediatric); E66.9 Obesity, unspecified; Z68.38 Body mass index [BMI] 38.0-38.9, adult; Z79.899 Other long term (current) drug therapy; Z88.1 Allergy status to other antibiotic agents; Z88.5 Allergy status to narcotic agent; Z88.8 Allergy status to other drugs, medicaments and biological substances; Z88.6 Allergy status to analgesic agent; Z83.3 Family history of diabetes mellitus; Z80.8 Family history of malignant neoplasm of other organs or systems

== ENCOUNTER 2019-07-12 10:25 | Outpatient (CLI) | payer MEDICARE ==
[~2019-07-12] VITALS: Ht 172 cm; Wt 113.6 kg
== END 2019-07-12 14:05 | disposition home or self-care (01) ==
LOC: PREOP 10:25
PROVIDERS: ATTEND Specialist
DX: Z01.818 Encounter for other preprocedural examination (principal)

== ENCOUNTER 2019-07-16 08:56 | Day surgery (SDC) | payer MEDICARE ==
[~2019-07-16] VITALS: Ht 172.7 cm; Wt 113.6 kg
[~2019-07-16 08:56] MED LIST changes: -DIGO125T PO; +DIGO125T3 PO; -SACU1TAB PO; +SACU1TAB2 PO; +SIMV40TA25 PO; +TRM50T PO
[2019-07-16 09:10] VITALS: BP 146/79
[2019-07-16] MEDS: TETRACAINE 0.5% OPHTH SOLN 4 ML BTL (SINGLE DOSE ONLY) OU PRN ×4 (09:13→09:35)
[2019-07-16] MEDS ORDERED: TIMOLOL MALEATE 0.5% 5 ML (TIMOPTIC) BTL OU PRN (09:15)
[2019-07-16] MEDS ORDERED: LIDOCAINE PF 1% 2 ML AMP IR PRN (09:15)
[2019-07-16] MEDS ORDERED: MOXIFLOXACIN OPHTH SOLN 5 MG/ML 0.3 ML SYRINGE OP ONE (09:15)
[2019-07-16] MEDS ORDERED: POVIDONE (BETADINE) OPHTH SOLN 5% 30 ML OP ONE (09:15)
[2019-07-16] MEDS: PHENYLEPHRINE 10% OPHTH (NEO-SYN) 5 ML BTL OU SCH ×3 (09:25→09:35)
[2019-07-16] MEDS: CYCLOPENTOLATE 1% (CYCLOGYL) 2 ML DROPS OP SCH ×3 (09:25→09:35)
--- NOTE | 2019-07-16 10:03 | Ophthalmologist Pre-Op Note ---
Pre-Operative Progress Note H&P Reviewed The H&P was reviewed, patient examined and no changes noted. Date H&P Reviewed: Jul 16, 2019 Time H&P Reviewed: 10:03 Pre-Op Dx Cataract, Left Eye RITO MANE MD Jul 16, 2019 10:03 POS
[2019-07-16] MEDS ORDERED: MIDAZOLAM 2 MG/2 ML (VERSED) VIAL ONE (10:08)
--- NOTE | 2019-07-16 10:27 | Ophthalmology Operative Report ---
Cataract removal/placement IOL PREOPERATIVE DIAGNOSIS: Cataract Left Eye POSTOPERATIVE DIAGNOSIS: Cataract Left Eye PROCEDURE: Cataract removal and placement of posterior chamber implant, left eye SURGEON: Joshua Mane ANESTHESIA: Topical with sedation COMPLICATIONS: None ESTIMATED BLOOD LOSS: Minimal DESCRIPTION OF PROCEDURE: After proper informed consent was obtained, the patient, a 79 male, was taken to the Operating Room and the left eye was anesthetized with tetracaine. The left eye was then prepped and draped in the usual manner. A wire lid speculum was placed. A paracentesis was made at the left hand position. Preservative free lidocaine was injected into the anterior chamber followed by viscoelastic. A clear corneal incision was made in the temporal position. A capsulorrhexis was preformed and the central nuclear and cortical material were removed. The posterior capsule was polished and an Gregory 20.0 [id number] was placed into the capsular bag. The residual viscoelastic was aspirated and balanced saline solution was injected into the anterior chamber. Moxifloxacin was injected into the anterior chamber. The wound was checked and found to be water tight. The patient tolerated the procedure well without complications. JOSHUA MANE MD Jul 16, 2019 10:27 POS
[2019-07-16] MEDS ORDERED: acetaZOLAMIDE ER 500 MG CAP (DIAMOX SEQUELS) PO ONE (10:30)
[2019-07-16 10:41] VITALS: BP 119/79
--- NOTE | 2019-07-16 12:45 | Anesthesia-General Post-Op ---
MAC Patient Condition Mental Status/LOC: Same as Preop Cardiovascular: Satisfactory Nausea/Vomiting: Absent Respiratory: Satisfactory Pain: Controlled Complications: Absent Post Op Complications Complications None Follow Up Care/Instructions Patient Instructions None needed. Anesthesiology Discharge Order Discharge Order Patient is doing well, no complaints, stable vital signs, no apparent adverse anesthesia problems. No complications reported per nursing. MERY WILLARD CRNA Jul 16, 2019 12:45 POS
== END 2019-07-16 10:41 | disposition home or self-care (01) ==
LOC: SDC 08:56
PROVIDERS: ATTEND Specialist
DX: H25.12 Age-related nuclear cataract, left eye (principal); I25.10 Atherosclerotic heart disease of native coronary artery without angina pectoris; G47.33 Obstructive sleep apnea (adult) (pediatric); E66.9 Obesity, unspecified; M19.90 Unspecified osteoarthritis, unspecified site; Z68.38 Body mass index [BMI] 38.0-38.9, adult; Z88.1 Allergy status to other antibiotic agents; Z88.5 Allergy status to narcotic agent; Z88.0 Allergy status to penicillin; Z79.899 Other long term (current) drug therapy; Z90.89 Acquired absence of other organs; Z88.8 Allergy status to other drugs, medicaments and biological substances; Z80.8 Family history of malignant neoplasm of other organs or systems; Z83.3 Family history of diabetes mellitus

== ENCOUNTER → 2019-08-20 | Outpatient (CLI) | payer MEDICARE ==
--- NOTE | 2019-08-20 13:35 | Diagnostic Imaging Report ---
Indication: Shortness of air. Compared: 11/23/2017 Findings: Pacemaker device unremarkable, some atelectasis or scarring in the left base laterally present, no jatinder pneumonia. There is a small hiatal hernia seen best on the lateral view. Pacemaker device unremarkable. No pneumothorax. Impression: Mild scarring or atelectasis left base otherwise negative, Dictated by: Dictated on workstation # [id number]
== END ==
LOC: RAD 13:07
PROVIDERS: ATTEND Physician Assistant
DX: R06.02 Shortness of breath (principal)
CPT/HCPCS: 71046

== ENCOUNTER 2019-08-23 19:44 | Outpatient (CLI) | payer MEDICARE | END 2019-08-24 06:20 | disposition home or self-care (01) | LOC: SLEEP 19:44 | PROVIDERS: ATTEND Nurse Practitioner | DX: G47.33 Obstructive sleep apnea (adult) (pediatric) (principal); H81.10 Benign paroxysmal vertigo, unspecified ear | CPT/HCPCS: 95811 ==

== ENCOUNTER → 2020-05-24 | Outpatient (CLI) | payer MEDICARE ==
[~2020-05-24] VITALS: Ht 173 cm; Wt 118.0 kg
[~2020-05-24] MED LIST changes: +CATHETER FLUSH 10 ML SYR IV PRN; -HYDR-3062 PO; +HYDR-34 PO; -HYDR-3816 PO; -MECL-106 PO; +MECL-149 PO; +REGADENOSON 0.4 MG/5 ML SYR (LEXISCAN) IV ONE
[2020-05-24 12:54] VITALS: BP 149/80
--- NOTE | 2020-05-24 15:10 | Cardiology Stress Test Report ---
Stress Test Report Date of Procedure/Referring: Date of Procedure: May 24, 2020 PCP Gogo Johansen Admitting Physician Jovani Velazquez MD Indications: Congestive heart failure Baseline Heart Rate: 69 Baseline Blood Pressure: Blood Pressure Systolic: 149 Blood Pressure Diastolic: 80 Baseline Vitals Vital Signs Date Time Temp Pulse Resp B/P (MAP) Pulse Ox O2 Delivery O2 Flow Rate FiO2 05/24/20 12:54 60 149/80 (103) 98 Baseline EKG: Baseline EKG: left bundle branch block Summary After explaining the procedure to the patient, he signed a consent and then brought to the stress nuclear laboratory. Patient received 0.4 mg Lexiscan for stress test, ECG, heart rate and blood pressure were monitored continuously. Resting and stress dose of radio tracer were injected, imaging was acquired and reviewed in short axis, horizontal long axis and vertical long axis views. TID: 1.04 SSS: 25 SDS: 6 EF: 30 1. Patient tolerated Lexiscan well 2. Baseline left bundle branch block persisted during test 3. Fixed defect involving the whole inferior wall, inferoseptum and inferolateral wall with mild reversibility 4. Dilated left ventricle with diffuse left ventricular hypokinesia, EF 30 percent LAKSHMI SALDIVAR MD May 24, 2020 15:10
== END ==
LOC: CARD 11:00
PROVIDERS: ATTEND Physician Assistant
DX: E78.5 Hyperlipidemia, unspecified (principal); I11.0 Hypertensive heart disease with heart failure; I50.9 Heart failure, unspecified; Z95.0 Presence of cardiac pacemaker; I51.89 Other ill-defined heart diseases; I51.0 Cardiac septal defect, acquired
CPT/HCPCS: 78452; 93017; A9502

== ENCOUNTER 2020-09-01 09:49 | Emergency (ER) | payer MEDICARE ==
[~2020-09-01] VITALS: Ht 172.7 cm; Wt 115.2 kg
[~2020-09-01 09:49] MED LIST changes: -AMIO200T4 PO; +AMIO200T6 PO; -CATHETER FLUSH 10 ML SYR IV PRN; -CLIN300C11 PO; +CLIN300C12 PO; -PANT40TA3 PO; +PANT40TA52 PO; -REGADENOSON 0.4 MG/5 ML SYR (LEXISCAN) IV ONE; -UBID60CA6 PO; +UBID60CA8 PO
[2020-09-01 10:58] LABS: ABG BASE EXCESS -3.8 MMOL/L (-2.5-2.5); ABG OXYGEN SATURATION 97 % (94-100); ABG PCO2 31 MMHG (35-45); ABG PH 7.42 (7.37-7.43); ABG PO2 85 MMHG (79-93); ABG TCO2 21.1 MMOL/L (21.0-31.0)
[2020-09-01 10:59] LABS: ALLENS TEST POSITIVE; PATIENT TEMP 36.2; VENTILATOR NO
--- NOTE | 2020-09-01 11:02 | ED Respiratory ---
General Chief Complaint: Respiratory Problems Stated Complaint: SOB Nursing Triage Note: Pt to ED in wheelchair. Pt reports having steroid shots in back last week for chronic back pain. Pt reports then developing SOB and lightheadedness afterward. Pt believes the symptoms are side effects of the shot. Pt reports symptoms have worsened today and reports being sent to ED by PCP. Source: patient Exam Limitations: no limitations History of Present Illness Date Seen by Provider: Sep 01, 2020 Time Seen by Provider: 10:29 Initial Comments Patient presents ER by a private conveyance from home with chief complaint of shortness of air progressively worsening over the past 4 days. He says he lives at home alone and does not have any sick contacts that he knows of. Is not having any chest pain. He does have a history of coronary disease and has a pacemaker and defibrillator. He says it was just checked out a few weeks ago when he was at Dr. Cuello's office. He also noted a 10 pound weight gain the last time he was at Dr. Cuello's office. He does not daily weigh himself. He says he has orthopnea and has to sleep sitting up. He also has increased swelling in both of his legs although he thinks his left is worse than his right. He had a epidural injection last week related to chronic back pain and feels that that is still hurting but no worse than usual. No chest pain. He is on Eliquis. Nonproductive occasional cough. He does not smoke cigarettes. No fevers chills nausea vomiting diarrhea loss of sense of taste and/or smell. Allergies and Home Medications Allergies Coded Allergies: Penicillins (Verified Allergy, Severe, 07/06/15) amoxicillin (Verified Allergy, Severe, 07/06/15) codeine (Unverified Allergy, Severe, HIVES, 02/07/12) ibuprofen (Verified Allergy, Intermediate, ANKLES SWELL, 11/01/16) Home Medications Acetaminophen 500 Mg Tablet, 1,000 MG PO Q6H PRN for PAIN, (Reported) Allopurinol 100 Mg Tablet, 100 MG PO HS, (Reported) Amiodarone HCl 200 Mg Tablet, 200 MG PO DAILY, (Reported) Apixaban 5 Mg Tablet, 5 MG PO BID, (Reported) Carvedilol 6.25 Mg Tablet, 6.25 MG PO BID, (Reported) Cholecalciferol (Vitamin D3) 1,000 Unit Tablet, 1,000 UNIT PO HS, (Reported) Finasteride 5 Mg Tablet, 5 MG PO DAILY, (Reported) Sacubitril/Valsartan 1 Each Tablet, 1 TAB PO BID, (Reported) Tamsulosin HCl 0.4 Mg Cap.er.24h, 0.4 MG PO HS, (Reported) Ubidecarenone 100 Mg Capsule, 100 MG PO DAILY, (Reported) Patient Home Medication List Home Medication List Reviewed: Yes Review of Systems Review of Systems Constitutional: No chills, No diaphoresis EENTM: No ear discharge, No ear pain Respiratory: see HPI, cough, short of breath Cardiovascular: see HPI; No chest pain, No edema; Hx of Intervention Gastrointestinal: No abdominal pain, No nausea, No vomiting Genitourinary: No discharge, No dysuria Musculoskeletal: No back pain, No joint pain All Other Systems Reviewed Negative Unless Noted: Yes Past Mmvvpny-Tmynve-Mqsban Hx Patient Social History Alcohol Use: Denies Use Recreational Drug Use: No Smoking Status: Former Smoker Type Used: Cigarettes, Electronic/Vapor Former Smoker, Quit: Nov 01, 1983 2nd Hand Smoke Exposure: No Recent Foreign Travel: No Contact w/Someone Who Travel: No Recent Infectious Disease Expo: No Recent Hopitalizations: No Immunizations Up To Date Tetanus Booster (TDap): Unknown PED Vaccines UTD: No Date of Pneumonia Vaccine: Jul 09, 2014 Date of Influenza Vaccine: Jun 03, 2017 Seasonal Allergies Seasonal Allergies: Yes Past Medical History Surgeries: Yes (SHOULDER X2, COLON RESECTION-DIVERTIC, STENT CAROTID ARTERY) Abdominal, Appendectomy, Defibrillator, Gallbladder, Pacemaker, Tonsillectomy Respiratory: Yes Sleep Apnea Currently Using CPAP: Yes Currently Using BIPAP: No Cardiac: Yes (arrhythmia, PACEMAKER/DEFIB, lower extremity edema, right carotid stent) High Cholesterol, Hypotension, Irregular Heartbeat Neurological: Yes Stroke Reproductive Disorders: No Sexually Transmitted Disease: No HIV/AIDS: No Gastrointestinal: Yes ( COLON RESECTION) Diverticulosis, Polyps Musculoskeletal: Yes (3 LEFT FOOT FRACTURES) Arthritis, Chronic Back Pain Endocrine: No HEENT: No Loss of Vision: Bilateral Hearing Impairment: Bilateral Hearing Aide Cancer: No Psychosocial: No Integumentary: No (SKIN LESIONS) Blood Disorders: No Adverse Reaction/Blood Tranf: No (N/A) Family Medical History Patient reports no known family medical history. Heart Disease, Diabetes, Hypertension Physical Exam Vital Signs - First Documented 09/01/20 09:55 Temp 36.2 Pulse 73 Resp 29 B/P (MAP) 152/87 (108) Pulse Ox 97 O2 Delivery Room Air Capillary Refill : Less Than 3 Seconds Height: 5'8.50" Weight: 250lbs. 0.0oz. 113.926501bs; 38.00 BMI Method:Stated General Appearance: WD/WN, no apparent distress Eyes: Bilateral Eye Normal Inspection, Bilateral Eye PERRL, Bilateral Eye EOMI HEENT: PERRL/EOMI, pharynx normal Neck: non-tender, full range of motion, normal inspection Respiratory: chest non-tender, lungs clear, normal breath sounds, no respiratory distress, no accessory muscle use Cardiovascular: normal peripheral pulses, regular rate, rhythm Gastrointestinal: normal bowel sounds, non tender, soft Neurologic/Psychiatric: alert, normal mood/affect, oriented x 3 Skin: normal color, warm/dry Progress/Results/Core Measures Suspected Sepsis Recent Fever Within 48 Hours: No Infection Criteria Present: None New/Unexplained Altered Menta: No Sepsis Screen: No Definite Risk SIRS Temperature: Pulse: 73 Respiratory Rate: 29 Laboratory Tests 09/01/20 10:45: White Blood Count 6.3 Blood Pressure 152 /87 Mean: 108 Laboratory Tests 09/01/20 10:45: Creatinine 1.72H, INR Comment 1.4, Platelet Count 182, Total Bilirubin 0.8 Results/Orders Lab Results Laboratory Tests Test 09/01/20 10:40 09/01/20 10:45 09/01/20 10:48 Range/Units Coronavirus 2019 (BETTE) Negative Negative White Blood Count 6.3 4.3-11.0 10^3/uL Red Blood Count 3.71 L 4.30-5.52 10^6/uL Hemoglobin 11.8 L 13.3-17.7 g/dL Hematocrit 36 L 40-54 % Mean Corpuscular Volume 98 80-99 fL Mean Corpuscular Hemoglobin 32 25-34 pg Mean Corpuscular Hemoglobin Concent 32 32-36 g/dL Red Cell Distribution Width 13.5 10.0-14.5 % Platelet Count 182 130-400 10^3/uL Mean Platelet Volume 9.6 9.0-12.2 fL Immature Granulocyte % (Auto) 0 % Neutrophils (%) (Auto) 72 42-75 % Lymphocytes (%) (Auto) 16 12-44 % Monocytes (%) (Auto) 9 0-12 % Eosinophils (%) (Auto) 3 0-10 % Basophils (%) (Auto) 0 0-10 % Neutrophils # (Auto) 4.6 1.8-7.8 10^3/uL Lymphocytes # (Auto) 1.0 1.0-4.0 10^3/uL Monocytes # (Auto) 0.6 0.0-1.0 10^3/uL Eosinophils # (Auto) 0.2 0.0-0.3 10^3/uL Basophils # (Auto) 0.0 0.0-0.1 10^3/uL Immature Granulocyte # (Auto) 0.0 0.0-0.1 10^3/uL Prothrombin Time 17.3 H 12.2-14.7 SEC INR Comment 1.4 0.8-1.4 Activated Partial Thromboplast Time 31 24-35 SEC Sodium Level 136 135-145 MMOL/L Potassium Level 4.4 3.6-5.0 MMOL/L Chloride Level 107 98-107 MMOL/L Carbon Dioxide Level 19 L 21-32 MMOL/L Anion Gap 10 5-14 MMOL/L Blood Urea Nitrogen 33 H 7-18 MG/DL Creatinine 1.72 H 0.60-1.30 MG/DL Estimat Glomerular Filtration Rate 39 BUN/Creatinine Ratio 19 Glucose Level 102 70-105 MG/DL Calcium Level 8.6 8.5-10.1 MG/DL Corrected Calcium 8.9 8.5-10.1 MG/DL Magnesium Level 1.8 1.6-2.4 MG/DL Total Bilirubin 0.8 0.1-1.0 MG/DL Aspartate Amino Transf (AST/SGOT) 20 5-34 U/L Alanine Aminotransferase (ALT/SGPT) 32 0-55 U/L Alkaline Phosphatase 66 40-136 U/L Myoglobin 68.5 10.0-92.0 NG/ML Troponin I < 0.028 <0.028 NG/ML B-Type Natriuretic Peptide 1693.9 H <100.0 PG/ML Total Protein 6.3 L 6.4-8.2 GM/DL Albumin 3.6 3.2-4.5 GM/DL Blood Gas Puncture Site RIGHT RADIAL Blood Gas Patient Temperature 36.2 Arterial Blood pH 7.42 7.37-7.43 Arterial Blood Partial Pressure CO2 31 L 35-45 MMHG Arterial Blood Partial Pressure O2 85 79-93 MMHG Arterial Blood HCO3 20 L 23-27 MMOL/L Arterial Blood Total CO2 21.1 21.0-31.0 MMOL/L Arterial Blood Oxygen Saturation 97 94-100 % Arterial Blood Base Excess -3.8 L -2.5-2.5 MMOL/L Gilmer Test POSITIVE Blood Gas Ventilator Setting NO Blood Gas Inspired Oxygen N/A Micro Results Microbiology 09/01/20 Influenza Types A,B Antigen (RAYO) - Final, Complete My Orders Orders - SKIP SANTILLAN Arterial Blood Gas (09/01/20 10:51) Cbc With Automated Diff (09/01/20 10:55) Magnesium (09/01/20 10:55) Chest 1 View, Ap/Pa Only (09/01/20 10:55) Ekg Tracing (09/01/20 10:55) Comprehensive Metabolic Panel (09/01/20 10:55) Myoglobin Serum (09/01/20 10:55) Protime With Inr (09/01/20 10:55) Partial Thromboplastin Time (09/01/20 10:55) O2 (09/01/20 10:55) Monitor-Rhythm Ecg Trace Only (09/01/20 10:55) Ed Iv/Invasive Line Start (09/01/20 10:55) BNP (09/01/20 10:55) Troponin I (09/01/20 10:55) Covid 19 Inhouse Test (09/01/20 10:55) Influenza A And B Antigens (09/01/20 10:55) Furosemide Injection (Lasix Injection) (09/01/20 12:15) Potassium Chloride (Tablet) (K Dur Table (09/01/20 12:15) Vital Signs/I&O 09/01/20 09:55 Temp 36.2 Pulse 73 Resp 29 B/P (MAP) 152/87 (108) Pulse Ox 97 O2 Delivery Room Air Capillary Refill : Less Than 3 Seconds Blood Pressure Mean: 108 Progress Note #1: Time: 11:02 Progress Note He does have some distended neck veins and so I suspect CHF given his weight gain and orthopnea as possible. We will go ahead and swab him for Covid and influenza although he is not having any fever, body aches or other symptoms. An ABG was obtained because his oxygen saturation is 95% at rest. Progress Note #2: Time: 12:05 Progress Note The patient is resting comfortably, satting in the upper 90s ECG Initial ECG Impression Date: Sep 01, 2020 Diagnostic Imaging Diagonstic Imaging: Xray Plain Films/CT/US/NM/MRI: chest Reviewed: Reviewed by Me Consults Consults : Consulting Physician: LAKSHMI SALDIVAR MD Consults Notes Discussed the case with Dr. Trivedi his personal remnant sorter and he agrees with dosing with Lasix and following up with primary care for repeat labs next week. Departure Impression Primary Impression: Acute on chronic diastolic CHF (congestive heart failure) Disposition: 01 HOME, SELF-CARE Condition: Stable Departure-Patient Inst. Decision time for Depature: 12:11 Referrals: LAKSHMI SALDIVAR MD, JOHN D MD (PCP/Family) Primary Care Physician Patient Instructions: Heart Failure, Adult (DC) Add. Discharge Instructions: You are experiencing and excess fluid buildup and we're going to get that off with Lasix. Lasix 20 mg in the morning. Potassium 1 capsule twice a day [address] Mejia's office Friday and request follow-up lab and appointment next week. Return to the ER if you are having chest pain or worsening shortness of breath. All discharge instructions reviewed with patient and/or family. Voiced understanding. Scripts Furosemide (Lasix) 20 Mg Tablet 20 MG PO DAILY for 7 Days, #7 TAB 0 Refills Prov: SKIP SANTILLAN 09/01/20 Potassium Chloride (Potassium Chloride) 20 Meq Tablet.er 20 MEQ PO BID for 7 Days, #14 TAB 0 Refills Prov: SKIP SANTILLAN 09/01/20 Copy Copies To 1: LAKSHMI SALDIVAR MD; REYNALDO MEJIA MD, TITUS J Sep 01, 2020 11:02
[2020-09-01 11:06] LABS: BASOPHILS % (AUTO) 0 % (0-10); EOSINOPHILS # (AUTO) 0.2 10^3/uL (0.0-0.3); EOSINOPHILS % (AUTO) 3 % (0-10); HEMATOCRIT 36 % (40-54); HEMOGLOBIN 11.8 g/dL (13.3-17.7); LYMPHOCYTES % (AUTO) 16 % (12-44); MEAN CORPUSCULAR HEMOGLOBIN 32 pg (25-34); MEAN CORPUSCULAR HGB CONC 32 g/dL (32-36); MEAN CORPUSCULAR VOLUME 98 fL (80-99); MEAN PLATELET VOLUME 9.6 fL (9.0-12.2); MONOCYTES # (AUTO) 0.6 10^3/uL (0.0-1.0); MONOCYTES % (AUTO) 9 % (0-12); NEUTROPHILS # (AUTO) 4.6 10^3/uL (1.8-7.8); NEUTROPHILS % (AUTO) 72 % (42-75); PLATELET COUNT 182 10^3/uL (130-400); WHITE BLOOD COUNT 6.3 10^3/uL (4.3-11.0)
[2020-09-01 11:08] LABS: ALBUMIN 3.6 GM/DL (3.2-4.5); POTASSIUM 4.4 MMOL/L (3.6-5.0)
[2020-09-01 11:09] LABS: CALCIUM 8.6 MG/DL (8.5-10.1)
[2020-09-01 11:11] LABS: INR 1.4 (0.8-1.4); PROTHROMBIN TIME PATIENT 17.3 SEC (12.2-14.7); TOTAL PROTEIN 6.3 GM/DL (6.4-8.2)
[2020-09-01 11:12] LABS: BILIRUBIN,TOTAL 0.8 MG/DL (0.1-1.0)
[2020-09-01 11:14] LABS: CREATININE SERUM 1.72 MG/DL (0.60-1.30)
[2020-09-01 11:17] LABS: MAGNESIUM 1.8 MG/DL (1.6-2.4)
--- NOTE | 2020-09-01 11:19 | Diagnostic Imaging Report ---
INDICATION: Chest pain Portable chest 11:12 AM There is a dual-chamber pacemaker with ICD. Heart is mildly enlarged. Vascularity is normal. Right lung is clear. There may be some left basilar atelectasis and possible effusion. IMPRESSION: Increased density left lung base could be due to atelectasis and effusion. Dictated by: Dictated on workstation # [id number]
[2020-09-01] MEDS ORDERED: KCL 20 MEQ TAB (K-DUR) PO ONE (12:15)
[2020-09-01] MEDS ORDERED: FUROSEMIDE 40 MG/4 ML INJ (LASIX) IVP ONE (12:15)
[2020-09-01] MEDS ORDERED: POTA-51 PO (12:15)
[2020-09-01] MEDS ORDERED: FURO-125 PO (12:15)
[2020-09-01 12:45] VITALS: BP 159/87
== END 2020-09-01 12:44 | disposition home or self-care (01) ==
LOC: EDUNIT# 09:49 → ER 09:51
DX: I11.0 Hypertensive heart disease with heart failure (principal); I50.33 Acute on chronic diastolic (congestive) heart failure; Z88.0 Allergy status to penicillin; Z88.5 Allergy status to narcotic agent; Z88.6 Allergy status to analgesic agent; Z88.1 Allergy status to other antibiotic agents; Z87.891 Personal history of nicotine dependence; Z82.49 Family history of ischemic heart disease and other diseases of the circulatory system; Z83.3 Family history of diabetes mellitus; Z95.810 Presence of automatic (implantable) cardiac defibrillator; Z20.828 Contact with and (suspected) exposure to other viral communicable diseases; Z79.01 Long term (current) use of anticoagulants
CPT/HCPCS: 71045; 80053; 82805; 83735; 83874; 83880; 84484; 85025; 85610; 85730; 87804; 93005; 93041; 96374; 99285; U0002; 36415; 87635

== ENCOUNTER 2020-09-15 12:19 | Emergency (ER) | payer MEDICARE ==
[~2020-09-15] VITALS: Ht 172 cm; Wt 113.0 kg
[~2020-09-15 12:19] MED LIST changes: +FURO-125 PO; +POTA-51 PO
--- NOTE | 2020-09-15 12:51 | ED Integumentary General ---
General Chief Complaint: Skin/Wound Problems Stated Complaint: BUMPS DOWN BACK RASH Source: patient Exam Limitations: no limitations History of Present Illness Date Seen by Provider: Sep 15, 2020 Time Seen by Provider: 12:50 Initial Comments Mr. Bishop is a 80-year-old male who presents to the emergency department today with a chief complaint of left-sided flank pain with a rash onset on 26 August. Patient states that he had 2 epidural spinal steroid injections just prior to the . He states within several days he started noticing blistering type rash to his back and side. He states the pain has radiated around his left flank and down into his left groin. Nothing makes the pain any better nothing makes it any worse. Patient has not been taking Tylenol or ibuprofen to alleviate his symptoms. He denies fevers, chills, cough, congestion. No coronavirus symptomatology. No other GI or complaints. All other review of systems reviewed and negative except as stated. Timing/Duration: other (Persistent for the last 3 weeks) Location: torso Possible Cause: other (Shingles virus) Associated Symptoms: blisters Allergies and Home Medications Allergies Coded Allergies: Penicillins (Verified Allergy, Severe, 07/06/15) amoxicillin (Verified Allergy, Severe, 07/06/15) codeine (Unverified Allergy, Severe, HIVES, 02/07/12) ibuprofen (Verified Allergy, Intermediate, ANKLES SWELL, 11/01/16) Home Medications Acetaminophen 500 Mg Tablet, 1,000 MG PO Q6H PRN for PAIN, (Reported) Allopurinol 100 Mg Tablet, 100 MG PO HS, (Reported) Amiodarone HCl 200 Mg Tablet, 200 MG PO DAILY, (Reported) Apixaban 5 Mg Tablet, 5 MG PO BID, (Reported) Carvedilol 6.25 Mg Tablet, 6.25 MG PO BID, (Reported) Cholecalciferol (Vitamin D3) 1,000 Unit Tablet, 1,000 UNIT PO HS, (Reported) Finasteride 5 Mg Tablet, 5 MG PO DAILY, (Reported) Furosemide 20 Mg Tablet, 20 MG PO DAILY Prescribed by: SKIP SANTILLAN on 09/01/20 1215 Potassium Chloride 20 Meq Tablet.er, 20 MEQ PO BID Prescribed by: SKIP SANTILLAN on 09/01/20 1215 Sacubitril/Valsartan 1 Each Tablet, 1 TAB PO BID, (Reported) Tamsulosin HCl 0.4 Mg Cap.er.24h, 0.4 MG PO HS, (Reported) Ubidecarenone 100 Mg Capsule, 100 MG PO DAILY, (Reported) Patient Home Medication List Home Medication List Reviewed: Yes Review of Systems Review of Systems Constitutional: see HPI EENTM: no symptoms reported Respiratory: no symptoms reported Cardiovascular: no symptoms reported Gastrointestinal: no symptoms reported Genitourinary: no symptoms reported Musculoskeletal: no symptoms reported Skin: lesions All Other Systems Reviewed Negative Unless Noted: Yes Past Nwprfkh-Crqzda-Lqbgcs Hx Patient Social History Type Used: Cigarettes, Electronic/Vapor Former Smoker, Quit: Nov 01, 1983 2nd Hand Smoke Exposure: No Recent Foreign Travel: No Contact w/Someone Who Travel: No Recent Hopitalizations: No Immunizations Up To Date Tetanus Booster (TDap): Unknown PED Vaccines UTD: No Date of Pneumonia Vaccine: Jul 09, 2014 Date of Influenza Vaccine: Jun 03, 2017 Seasonal Allergies Seasonal Allergies: Yes Past Medical History Surgeries: Yes (SHOULDER X2, COLON RESECTION-DIVERTIC, STENT CAROTID ARTERY) Abdominal, Appendectomy, Defibrillator, Gallbladder, Pacemaker, Tonsillectomy Respiratory: Yes Sleep Apnea Currently Using CPAP: Yes Currently Using BIPAP: No Cardiac: Yes (arrhythmia, PACEMAKER/DEFIB, lower extremity edema, right carotid stent) High Cholesterol, Hypotension, Irregular Heartbeat Neurological: Yes Stroke Reproductive Disorders: No Sexually Transmitted Disease: No HIV/AIDS: No Gastrointestinal: Yes ( COLON RESECTION) Diverticulosis, Polyps Musculoskeletal: Yes (3 LEFT FOOT FRACTURES) Arthritis, Chronic Back Pain Endocrine: No HEENT: No Loss of Vision: Bilateral Hearing Impairment: Bilateral Hearing Aide Cancer: No Psychosocial: No Integumentary: No (SKIN LESIONS) Blood Disorders: No Adverse Reaction/Blood Tranf: No (N/A) Family Medical History Patient reports no known family medical history. Heart Disease, Diabetes, Hypertension Physical Exam Vital Signs Vital Signs - First Documented 09/15/20 12:52 Temp 36.3 Pulse 74 Resp 18 B/P (MAP) 136/71 (92) Pulse Ox 100 O2 Delivery Room Air Capillary Refill : General Appearance: WD/WN, no apparent distress Cardiovascular: regular rate, rhythm Respiratory: lungs clear, no respiratory distress Gastrointestinal: non tender, soft Extremities: non-tender, normal inspection, no pedal edema Neurologic/Psychiatric: alert, normal mood/affect, oriented x 3 Skin: normal color, warm/dry, other (Patient has a healing vesicular rash to the left flank at approximately T12-L1, the rash looks like it is improving and in the mid left lower quadrant he has some scabbed healing lesions. Rash is slightly tender to palpation) Skin Problem Location: torso Skin Problem Character: vesicular (Crusted) Progress/Results/Core Measures Results/Orders My Orders Orders - TIFFANY LUGO MD Lidocaine 4% Patch (Salonpas 4% Patch) (09/16/20 09:00) Vital Signs/I&O 09/15/20 12:52 Temp 36.3 Pulse 74 Resp 18 B/P (MAP) 136/71 (92) Pulse Ox 100 O2 Delivery Room Air Progress Progress Note : Time: 13:19 Progress Note Patient has a healing vesicular rash to the left flank. It looks like it is almost healed up but the patient is still experiencing residual pain and discomfort in the area of the rash. We will apply a lidocaine patch here in the emergency department and instruct the patient on Tylenol and ibuprofen dosing as needed for pain. Departure Impression Primary Impression: Varicella-zoster infection Disposition: HOME, SELF-CARE Condition: Stable Departure-Patient Inst. Decision time for Depature: 13:20 Referrals: REYNALDO MEJIA MD (PCP/Family) Primary Care Physician Patient Instructions: Kwame (ANI) Add. Discharge Instructions: Please call your primary care doctor's office on Friday for a follow-up appointment. Use an nazn-baa-qfscizf lidocaine patch such as SALONPAS patches for pain. Only apply 1 patch at a time. Alternate Tylenol and ibuprofen as needed for further discomfort. Return to the emergency room for any worsening symptoms new concerns or other emergent complaints. TIFFANY LUGO MD Sep 15, 2020 12:51
[2020-09-15 13:29] VITALS: BP 130/74
[2020-09-16] MEDS ORDERED: LIDOCAINE 4% (SALONPAS) PATCH TOP SCH (09:00)
== END 2020-09-15 13:29 | disposition home or self-care (01) ==
LOC: EDUNIT# 12:19 → ER 12:22
DX: B01.9 Varicella without complication (principal); Z82.49 Family history of ischemic heart disease and other diseases of the circulatory system; Z83.3 Family history of diabetes mellitus; Z87.891 Personal history of nicotine dependence; Z88.0 Allergy status to penicillin; Z88.5 Allergy status to narcotic agent; Z88.6 Allergy status to analgesic agent; Z88.1 Allergy status to other antibiotic agents; Z95.810 Presence of automatic (implantable) cardiac defibrillator; Z79.01 Long term (current) use of anticoagulants
CPT/HCPCS: 99282

== ENCOUNTER → 2020-09-19 | Outpatient (CLI) | payer MEDICARE ==
--- NOTE | 2020-09-19 13:33 | Diagnostic Imaging Report ---
EXAMINATION: Chest 2 views. HISTORY: Pleural effusions. Congestive heart failure. COMPARISON: 09/01/2020. FINDINGS: Stable left pectoral ICD. There has been interval decrease in size in the left pleural effusion with improved aeration of the left lung base. The cardiac silhouette remains enlarged. There is prominence of the central pulmonary vasculature without overt pulmonary edema. No focal consolidations are seen. No evidence of pneumothorax. No acute osseous abnormalities. IMPRESSION: 1. Interval decrease in size in the left pleural effusion with improved aeration in the left lung base. 2. Cardiomegaly with chronic central pulmonary vascular congestion. No overt pulmonary edema. Dictated by: Dictated on workstation # [id number]
== END ==
LOC: RAD 12:19
PROVIDERS: ATTEND Physician Assistant
DX: I50.9 Heart failure, unspecified (principal); I51.7 Cardiomegaly; J90 Pleural effusion, not elsewhere classified
CPT/HCPCS: 71046

== ENCOUNTER → 2022-04-24 | Outpatient (CLI) | payer MEDICARE ==
[~2022-04-24] MED LIST changes: -AMIO200T6 PO; +AMIO200T65 PO; +CLIN-144 PO; -CLIN300C12 PO
--- NOTE | 2022-04-24 17:13 | Diagnostic Imaging Report ---
INDICATION: Ankle, pain and swelling. EXAMINATION: Left ankle, 04/24/2022. COMPARISON: 08/19/2016. FINDINGS: 3 views of the ankle demonstrate chronic and degenerative changes about the ankle. However, there is a focal density distal to the tip of the medial malleolus which could represent an acute avulsion fracture. Correlate for point tenderness. Tiny densities adjacent to the medial tip of the distal fibula, age indeterminate. Ankle mortise is intact. Talar dome unremarkable. There is posterior and plantar calcaneal spurring. Atherosclerotic disease is noted. There is diffuse soft tissue swelling. IMPRESSION: Age-indeterminant possible acute avulsion fractures on the distal medial and lateral malleoli, as described above. Surrounding soft tissue swelling is noted. Dictated by: Dictated on workstation # [id number]
[2022-04-24 17:15] LABS: HEMATOCRIT 37 % (40-54); HEMOGLOBIN 12.4 g/dL (13.3-17.7); MEAN CORPUSCULAR HEMOGLOBIN 33 pg (25-34); MEAN CORPUSCULAR HGB CONC 34 g/dL (32-36); MEAN CORPUSCULAR VOLUME 97 fL (80-99); MEAN PLATELET VOLUME 9.7 fL (9.0-12.2); PLATELET COUNT 176 10^3/uL (130-400); WHITE BLOOD COUNT 7.8 10^3/uL (4.3-11.0)
[2022-04-24 17:37] LABS: ERYTHROCYTE SEDIMENTATION RATE 34 MM/HR (0-30)
[2022-04-24 17:52] LABS: ALBUMIN 3.7 GM/DL (3.2-4.5); BILIRUBIN,TOTAL 0.7 MG/DL (0.1-1.0); CALCIUM 9.1 MG/DL (8.5-10.1); CREATININE SERUM 1.86 MG/DL (0.60-1.30); POTASSIUM 4.3 MMOL/L (3.6-5.0); TOTAL PROTEIN 6.9 GM/DL (6.4-8.2); URIC ACID 6.9 MG/DL (2.6-7.2)
== END ==
LOC: RAD 16:39
PROVIDERS: ATTEND Nurse Practitioner Family
DX: M25.572 Pain in left ankle and joints of left foot (principal); M25.472 Effusion, left ankle
CPT/HCPCS: 36415; 73610; 80053; 84550; 85027; 85652

== ENCOUNTER 2022-05-22 06:11 | Outpatient (CLI) | payer MEDICARE ==
[~2022-05-22] VITALS: Ht 172.7 cm; Wt 120.2 kg
[2022-05-22] MEDS ORDERED: CARV25TA PO (13:55)
[2022-05-22] MEDS ORDERED: TRAM50TA3 PO (13:55)
[2022-05-22] MEDS ORDERED: ACHD5005 PO (13:55)
== END 2022-05-22 13:57 | disposition home or self-care (01) ==
LOC: PREOP 06:11
PROVIDERS: ATTEND Surgery
DX: Z01.818 Encounter for other preprocedural examination (principal)

== ENCOUNTER 2022-06-03 09:51 | Day surgery (SDC) | payer MEDICARE ==
[~2022-06-03] VITALS: Ht 172.7 cm; Wt 120.2 kg
[~2022-06-03 09:51] MED LIST changes: +CARV25TA PO; +TRAM50TA3 PO
[2022-06-03] MEDS ORDERED: LACTATED RINGERS 1,000 ML IV STA (09:56)
[2022-06-03 10:25] VITALS: BP 129/66
--- NOTE | 2022-06-03 10:53 | Progress Note-Pre Operative ---
Pre-Operative Progress Note Date of Available H&P: May 09, 2022 Date H&P Reviewed: Jun 03, 2022 Time H&P Reviewed: 10:50 History & Physical: H&P Reviewed, Patient Examed, No changes noted Pre-Operative Diagnosis: Hx of polyp AMOS NDIAYE DO Jun 03, 2022 10:53
[2022-06-03] MEDS ORDERED: PROPOFOL INJECTION 50 ML IV ONE (11:45)
[2022-06-03 12:56] VITALS: BP 97/51
--- NOTE | 2022-06-03 12:57 | Progress Note-Post Operative ---
Post-Operative Progess Note Surgeon (s)/Steel Detailer (s) Surgeon AMOS NDIAYE DO Steel Detailer: none Pre-Operative Diagnosis Hx of polyp Post-Operative Diagnosis polyp diverticula int hemorrhoids Procedure & Operative Findings Date of Procedure 06/03/22 Procedure Performed/Findings Colonoscopy with snare polypectomy PROCEDURE NOTE: After informed consent was obtained, the patient was brought to the endoscopy suite, placed in bed in left lateral decubitus position. He was administered IV sedation by the CHEMISTS who then monitored his vitals the entire time, heart rate, blood pressure and pulse ox and the scope was inserted, pushed all the way to about 140 cm and pushed to the anastomosis, took a picture and then slowly withdrew the scope insufflating to look circumferentially at the arriaga starting at the anastomosis then down the transverse colon, to the splenic flexure, into the descending colon where I found multiple large diverticula and took a picture. I also found a polyp and removed it with a snare. Continued down into the sigmoid and then into the rectal vault and retroflexed the scope. Took a picture of the internal hemorrhoids. The patient tolerated the procedure. He was recovered in endoscopy suite. Recommended for repeat colonoscopy in 5 years. Anesthesia Type IV sedation by CHEMISTS Estimated Blood Loss Estimated blood loss (mL): scant Specimens/Packing Specimens Removed descending colon polyp AMOS NDIAYE DO Jun 03, 2022 12:57
--- NOTE | 2022-06-03 12:58 | Endoscopy Discharge Instruct ---
Endo Procedure/Findings Findings 2.: Diverticulosis 3.: Internal Hemorrhoids Discharge Instructions - Activity: You might feel a little sleepy until tomorrow. This is due to the medicine you received to relax you. Until tomorrow, you should: NOT drive a car, operate machinery or power tools. NOT drink any alcoholic beverages. NOT make any important decisions or sign importortant papers. Do not return to work until tomorrow, unless otherwise instructed. Resume previous activities tomorrow. Diet: Start by taking liquids. If you tolerate liquids, advance to solid food. 1.: Colonscopy in 5 years Notify Physician - If you experience excessive bleeding, unusual abdominal pain, fever, or chest pain, contact your doctor immediately. AMOS NDIAYE DO Jun 03, 2022 12:58
[2022-06-03 13:01] VITALS: BP 84/45
[2022-06-03 13:05] VITALS: BP 108/54
[2022-06-03 13:30] VITALS: BP 108/54
--- NOTE | 2022-06-03 14:44 | Anesthesia-General Post-Op ---
MAC Patient Condition Mental Status/LOC: Same as Preop Cardiovascular: Satisfactory Nausea/Vomiting: Absent Respiratory: Satisfactory Pain: Controlled Complications: Absent Post Op Complications Complications None Follow Up Care/Instructions Patient Instructions None needed. Anesthesiology Discharge Order Discharge Order Patient is doing well, no complaints, stable vital signs, no apparent adverse anesthesia problems. No complications reported per nursing. CLAUDIA PATTON CRNA Jun 03, 2022 14:44
== END 2022-06-03 13:35 | disposition home or self-care (01) ==
LOC: ENDO 09:51
PROVIDERS: ATTEND Surgery
DX: Z12.11 Encounter for screening for malignant neoplasm of colon (principal); K63.5 Polyp of colon; K57.30 Diverticulosis of large intestine without perforation or abscess without bleeding; K64.8 Other hemorrhoids; G47.33 Obstructive sleep apnea (adult) (pediatric); Z87.891 Personal history of nicotine dependence; E66.01 Morbid (severe) obesity due to excess calories; Z68.41 Body mass index [BMI] 40.0-44.9, adult

== ENCOUNTER 2022-06-19 12:11 | Emergency (ER) | payer MEDICARE ==
[~2022-06-19] VITALS: Ht 170 cm; Wt 117.0 kg
--- NOTE | 2022-06-19 12:45 | ED Respiratory ---
General Chief Complaint: Respiratory Problems Stated Complaint: SOA/LIGHTHEADED Nursing Triage Note: ARRIVED VIA WC TO ROOM 10 WITH COMPLAINTS OF SOA AND WEAKNESS SINCE BEING DX WITH AFIB ON . Source: patient, old records Exam Limitations: no limitations (CHRISTY RAMIREZ APRN) History of Present Illness Date Seen by Provider: Jun 19, 2022 Time Seen by Provider: 12:20 Initial Comments This is an 82-year-old male who presented to the ER via POV with concerns of increasing shortness of breath and weakness since May 29. Patient states that he had evaluation of his pacemaker defibrillator and was found to be in persistent atrial fibrillation. He has follow-up with his offset assistant press operator at [facility] in [place] for consultation to have Watchman placed. He was recently started on Xarelto 20 mg daily as a trial dose prior to procedure to see if he could tolerate as he has had issues with anticoagulants in the past. Over the past several days he is had increased difficulty breathing when lying flat. He does wear BiPAP at bedtime and states he has had increased shortness of breath when sleeping. (CHRISTY RAMIREZ APRN) Allergies and Home Medications Allergies Coded Allergies: Penicillins (Verified Allergy, Severe, 07/06/15) amoxicillin (Verified Allergy, Severe, 07/06/15) codeine (Unverified Allergy, Severe, HIVES, 02/07/12) ibuprofen (Verified Allergy, Intermediate, ANKLES SWELL, 11/01/16) digoxin (Unverified Allergy, Unknown, 05/22/22) Patient Home Medication List Home Medication List Reviewed: Yes (CHRISTY RAMIREZ APRN) Allopurinol (Allopurinol) 100 Mg Tablet, 100 MG PO HS, (Reported) Entered as Reported by: ALENA RODGERS on 07/06/15 1517 Amiodarone HCl (Amiodarone HCl) 200 Mg Tablet, 200 MG PO DAILY, (Reported) Entered as Reported by: ALFONSO AUSTIN on 11/01/16 0930 Carvedilol (Carvedilol) 25 Mg Tablet, 25 MG PO BID, (Reported) Entered as Reported by: ROBYN ZACARIAS on 05/22/22 1355 Cholecalciferol (Vitamin D3) (Vitamin D3) 1,000 Unit Tablet, 1,000 UNIT PO HS, (Reported) Entered as Reported by: ALENA RODGERS on 07/06/15 1522 Furosemide (Lasix) 20 Mg Tablet, 20 MG PO DAILY Prescribed by: SKIP SANTILLAN on 09/01/20 1215 Hydrocodone/Acetaminophen (Hydrocodone-Acetamin 5-325 mg) 5 Mg-325 Mg Tablet, 1 TAB PO Q4H PRN for PAIN-MODERATE (5-7), (Reported) Entered as Reported by: ROBYN ZACARIAS on 05/22/22 1355 Potassium Chloride (Potassium Chloride) 20 Meq Tablet.er, 20 MEQ PO BID Prescribed by: SKIP SANTILLAN on 09/01/20 1215 Tamsulosin HCl (Tamsulosin HCl) 0.4 Mg Cap.er.24h, 0.4 MG PO HS, (Reported) Entered as Reported by: CLAUDIA DAVILA on 01/05/18 1118 Tramadol HCl (Tramadol HCl) 50 Mg Tablet, 50 MG PO DAILY, (Reported) Entered as Reported by: ROBYN ZACARIAS on 05/22/22 1355 Ubidecarenone (Co Q10) 100 Mg Capsule, 100 MG PO DAILY, (Reported) Entered as Reported by: ALFONSO AUSTIN on 06/17/18 0956 Review of Systems Review of Systems Constitutional: see HPI (CHRISTY RAMIREZ APRN) Past Ujmynyq-Kcmzvz-Lgltcw Hx Patient Social History Smoking Status: Former Smoker Substance use?: No Alcohol Use?: No (CHRISTY RAMIREZ APRN) Immunizations Up To Date Tetanus Booster (TDap): Unknown PED Vaccines UTD: No First/Initial COVID19 Vaccinat: 2020 Second COVID19 Vaccination Stuart: 2020 Third COVID19 Vaccination Date: NO COVID19 Vaccine Manhole Stripper: UNKNOWN (CHRISTY RAMIREZ APRN) Seasonal Allergies Seasonal Allergies: Yes (CHRISTY RAMIREZ APRN) Past Medical History Surgeries: Yes (SHOULDER X2, COLON RESECTION-DIVERTIC, STENT CAROTID ARTERY) Abdominal, Appendectomy, Defibrillator, Gallbladder, Pacemaker, Tonsillectomy Respiratory: Yes Sleep Apnea Currently Using CPAP: Yes Currently Using BIPAP: No Cardiac: Yes (arrhythmia, PACEMAKER/DEFIB, lower extremity edema, right carotid stent) High Cholesterol, Hypotension, Irregular Heartbeat Neurological: Yes Stroke Reproductive Disorders: No Sexually Transmitted Disease: No HIV/AIDS: No Gastrointestinal: Yes ( COLON RESECTION) Diverticulosis, Polyps Musculoskeletal: Yes (3 LEFT FOOT FRACTURES) Arthritis, Chronic Back Pain Endocrine: No HEENT: No Loss of Vision: Bilateral Hearing Impairment: Bilateral Hearing Aide Cancer: No Psychosocial: No Integumentary: No (SKIN LESIONS) Blood Disorders: No Adverse Reaction/Blood Tranf: No (N/A) (CHRISTY RAMIREZ APRN) Family Medical History Patient reports no known family medical history. Heart Disease, Diabetes, Hypertension (CHRISTY RAMIREZ APRN) Physical Exam Vital Signs - First Documented 06/19/22 06/19/22 12:15 12:20 Temp 36.0 Pulse 70 Resp 20 Pulse Ox 97 O2 Delivery Room Air O2 Flow Rate 2.00 (VINOD MINER MD) Capillary Refill : Less Than 3 Seconds (CHRISTY RAMIREZ APRN) Height: 5'8.50" Weight: 250lbs. 0.0oz. [id number]; 40.00 BMI Method:Stated General Appearance: WD/WN, no apparent distress Eyes: Bilateral Eye Normal Inspection, Bilateral Eye PERRL, Bilateral Eye EOMI HEENT: PERRL/EOMI, normal ENT inspection, pharynx normal Neck: full range of motion, normal inspection Respiratory: chest non-tender, normal breath sounds, no respiratory distress, decreased breath sounds Cardiovascular: normal peripheral pulses, regular rate, rhythm, systolic murmur Gastrointestinal: normal bowel sounds, non tender, soft Extremities: normal range of motion, non-tender, normal inspection, pedal edema, swelling Neurologic/Psychiatric: no motor/sensory deficits, alert, normal mood/affect, oriented x 3 Skin: normal color, warm/dry (CHRISTY RAMIREZ APRN) Progress/Results/Core Measures Suspected Sepsis SIRS Temperature: Pulse: 70 Respiratory Rate: 20 Laboratory Tests 06/19/22 13:30: White Blood Count 5.9 Blood Pressure / Mean: Laboratory Tests 06/19/22 13:30: Creatinine 2.03H, INR Comment 4.3H, Platelet Count 158, Total Bilirubin 0.9 (CHRISTY RAMIREZ APRN) Results/Orders Lab Results Laboratory Tests Test 06/19/22 13:06 06/19/22 13:30 Range/Units Influenza Type A (RT-PCR) Not Detected Not Detecte Influenza Type B (RT-PCR) Not Detected Not Detecte SARS-CoV-2 RNA (RT-PCR) Not Detected Not Detecte White Blood Count 5.9 4.3-11.0 10^3/uL Red Blood Count 3.46 L 4.30-5.52 10^6/uL Hemoglobin 11.3 L 13.3-17.7 g/dL Hematocrit 34 L 40-54 % Mean Corpuscular Volume 99 80-99 fL Mean Corpuscular Hemoglobin 33 25-34 pg Mean Corpuscular Hemoglobin Concent 33 32-36 g/dL Red Cell Distribution Width 13.7 10.0-14.5 % Platelet Count 158 130-400 10^3/uL Mean Platelet Volume 9.6 9.0-12.2 fL Immature Granulocyte % (Auto) 1 % Neutrophils (%) (Auto) 65 42-75 % Lymphocytes (%) (Auto) 23 12-44 % Monocytes (%) (Auto) 10 0-12 % Eosinophils (%) (Auto) 2 0-10 % Basophils (%) (Auto) 1 0-10 % Neutrophils # (Auto) 3.8 1.8-7.8 10^3/uL Lymphocytes # (Auto) 1.3 1.0-4.0 10^3/uL Monocytes # (Auto) 0.6 0.0-1.0 10^3/uL Eosinophils # (Auto) 0.1 0.0-0.3 10^3/uL Basophils # (Auto) 0.0 0.0-0.1 10^3/uL Immature Granulocyte # (Auto) 0.0 0.0-0.1 10^3/uL Prothrombin Time 41.5 H 12.2-14.7 SEC INR Comment 4.3 H 0.8-1.4 Activated Partial Thromboplast Time 46 H 24-35 SEC Sodium Level 137 135-145 MMOL/L Potassium Level 4.3 3.6-5.0 MMOL/L Chloride Level 108 H 98-107 MMOL/L Carbon Dioxide Level 21 21-32 MMOL/L Anion Gap 8 5-14 MMOL/L Blood Urea Nitrogen 29 H 7-18 MG/DL Creatinine 2.03 H 0.60-1.30 MG/DL Estimat Glomerular Filtration Rate 32 BUN/Creatinine Ratio 14 Glucose Level 102 70-105 MG/DL Calcium Level 9.0 8.5-10.1 MG/DL Corrected Calcium 9.3 8.5-10.1 MG/DL Magnesium Level 2.0 1.6-2.4 MG/DL Total Bilirubin 0.9 0.1-1.0 MG/DL Aspartate Amino Transf (AST/SGOT) 15 5-34 U/L Alanine Aminotransferase (ALT/SGPT) 14 0-55 U/L Alkaline Phosphatase 69 40-136 U/L Total Creatine Kinase 64 30-200 U/L Creatine Kinase MB 1.5 <6.6 NG/ML Myoglobin 94.8 H 10.0-92.0 NG/ML Troponin I < 0.028 <0.028 NG/ML C-Reactive Protein High Sensitivity 1.03 H 0.00-0.50 MG/DL B-Type Natriuretic Peptide 1173.5 H <100.0 PG/ML Total Protein 6.5 6.4-8.2 GM/DL Albumin 3.6 3.2-4.5 GM/DL (VINOD MINER MD) My Orders Orders - VINOD MINER MD Ekg Tracing (06/19/22 12:20) (VINOD MINER MD) Vital Signs/I&O 06/19/22 06/19/22 06/19/22 12:15 12:20 12:20 Temp 36.0 Pulse 70 Resp 20 B/P (MAP) Pulse Ox 97 97 O2 Delivery Room Air Room Air Nasal Cannula O2 Flow Rate 2.00 (VINOD MINER MD) Vital Signs/I&O Capillary Refill : Less Than 3 Seconds (CHRISTY RAMIREZ APRN) Progress Note : Progress Note Given Lasix 40mg IVP, good output of >750ml clear yellow urine. States he was now able to lay flatter in bed and could "button" his pants. Will plan to have him keep his cardiology follow up in the morning, however if he has any worsening symptoms he is to return to ER. Verbalized understanding. Strict return precautions provided. (CHRISTY RAMIREZ APRN) Diagnostic Imaging Diagonstic Imaging: Xray Comments [facility] [place], [place] NAME: ANAT KENDALL MED REC#: [id number] PT STATUS: REG ER : 1940 PHYSICIAN: CHRISTY RAMIREZ APRN ADMIT DATE: 06/19/22/ER Signed Date of Exam:06/19/22 CHEST 1 VIEW, AP/PA ONLY INDICATION: Weakness and shortness of breath. EXAMINATION: Portable chest at 02:14 p.m. FINDINGS: There is cardiomegaly with pulmonary vascular congestion and interstitial edema. There is a dual-chamber pacemaker. IMPRESSION: Congestive heart failure. There is a small left pleural effusion. Dictated by: Dictated on workstation # [id number] Dict: 06/19/22 1419 Trans: 06/19/224 [facility] [id number] Interpreted by: REX BONNER MD Electronically signed by: REX BONNER MD 06/19/221513 Reviewed: Reviewed by Me Comments [facility], [place] NAME: ANAT KENDALL MED REC#: [id number] PT STATUS: REG ER : 1940 PHYSICIAN: CHRISTY RAMIREZ APRN ADMIT DATE: 06/19/22/ER Signed Date of Exam:06/19/22 ABDOMEN/KUB 1VIEW INDICATION: Abdominal distention. EXAMINATION: KUB, 2:16 p.m. FINDINGS: There is some atelectasis at the left lung base. Gallbladder appears to be surgically absent. There are postsurgical changes from discectomy and fusion of L4-L5. Bowel gas pattern is normal. IMPRESSION: Left basilar consolidation. No acute abnormalities seen in the abdomen. Dictated by: Dictated on workstation # [id number] Dict: 06/19/22 1419 Trans: 06/19/22 1514 [id number] Interpreted by: REX BONNER MD Electronically signed by: REX BONNER MD 06/19/22 1513 (CHRISTY RAMIREZ FRENCH TUTOR) Departure Impression Primary Impression: Acute on chronic heart failure Disposition: 01 HOME, SELF-CARE Condition: Improved Departure-Patient Inst. Decision time for Depature: 16:31 (CHRISTY RAMIERZ FRENCH TUTOR) Referrals: REYNALDO MEJIA MD (PCP/Family) Primary Care Physician Patient Instructions: Heart Failure ED Add. Discharge Instructions: Plan: 1. Keep follow-up with your offset assistant press operator tomorrow as previously scheduled. 2. Take copy of your labs and imaging to your appointment with you. HOLD YOUR XARELTO dose in AM. 3. Discuss Lasix regimen with your offset assistant press operator, as you may require more Lasix than 20 mg every other day. 4. If you have any worsening shortness of breath, chest pain, or any other new or worsening symptoms return to ER. All discharge instructions reviewed with patient and/or family. Voiced understanding. ATTENDING PHYSICIAN NOTE: I was physically present as attending physician in the emergency department during the care of this patient, but I was not directly involved in the decision making or delivery of care for this patient. (VINOD MINER MD) CHRISTY RAMIREZ APRN Jun 19, 2022 12:45 VINOD MINER MD Jun 24, 2022 07:49
[2022-06-19 13:43] LABS: BASOPHILS % (AUTO) 1 % (0-10); EOSINOPHILS # (AUTO) 0.1 10^3/uL (0.0-0.3); EOSINOPHILS % (AUTO) 2 % (0-10); HEMATOCRIT 34 % (40-54); HEMOGLOBIN 11.3 g/dL (13.3-17.7); LYMPHOCYTES # (AUTO) 1.3 10^3/uL (1.0-4.0); LYMPHOCYTES % (AUTO) 23 % (12-44); MEAN CORPUSCULAR HEMOGLOBIN 33 pg (25-34); MEAN CORPUSCULAR HGB CONC 33 g/dL (32-36); MEAN CORPUSCULAR VOLUME 99 fL (80-99); MEAN PLATELET VOLUME 9.6 fL (9.0-12.2); MONOCYTES # (AUTO) 0.6 10^3/uL (0.0-1.0); MONOCYTES % (AUTO) 10 % (0-12); NEUTROPHILS # (AUTO) 3.8 10^3/uL (1.8-7.8); NEUTROPHILS % (AUTO) 65 % (42-75); PLATELET COUNT 158 10^3/uL (130-400); WHITE BLOOD COUNT 5.9 10^3/uL (4.3-11.0)
[2022-06-19 14:01] LABS: ALBUMIN 3.6 GM/DL (3.2-4.5); POTASSIUM 4.3 MMOL/L (3.6-5.0)
[2022-06-19 14:03] LABS: TOTAL PROTEIN 6.5 GM/DL (6.4-8.2)
[2022-06-19 14:05] LABS: BILIRUBIN,TOTAL 0.9 MG/DL (0.1-1.0)
[2022-06-19 14:06] LABS: INR 4.3 (0.8-1.4); PROTHROMBIN TIME PATIENT 41.5 SEC (12.2-14.7)
[2022-06-19 14:07] LABS: CREATININE SERUM 2.03 MG/DL (0.60-1.30)
[2022-06-19 14:17] LABS: CREATINE KINASE MB 1.5 NG/ML (<6.6)
--- NOTE | 2022-06-19 14:21 | Diagnostic Imaging Report ---
INDICATION: Weakness and shortness of breath. EXAMINATION: Portable chest at 02:14 p.m. FINDINGS: There is cardiomegaly with pulmonary vascular congestion and interstitial edema. There is a dual-chamber pacemaker. IMPRESSION: Congestive heart failure. There is a small left pleural effusion. Dictated by: Dictated on workstation # [id number]
--- NOTE | 2022-06-19 14:22 | Diagnostic Imaging Report ---
INDICATION: Abdominal distention. EXAMINATION: KUB, 2:16 p.m. FINDINGS: There is some atelectasis at the left lung base. Gallbladder appears to be surgically absent. There are postsurgical changes from discectomy and fusion of L4-L5. Bowel gas pattern is normal. IMPRESSION: Left basilar consolidation. No acute abnormalities seen in the abdomen. Dictated by: Dictated on workstation # [id number]
[2022-06-19] MEDS ORDERED: FUROSEMIDE 40 MG/4 ML INJ (LASIX) IVP ONE (15:30)
== END 2022-06-19 18:05 | disposition home or self-care (01) ==
LOC: EDUNIT# 12:11 → ER 12:13
DX: I11.0 Hypertensive heart disease with heart failure (principal); I50.9 Heart failure, unspecified; G47.30 Sleep apnea, unspecified; Z95.0 Presence of cardiac pacemaker; Z95.5 Presence of coronary angioplasty implant and graft; Z99.89 Dependence on other enabling machines and devices; Z87.891 Personal history of nicotine dependence; Z20.822 Contact with and (suspected) exposure to COVID-19; Z79.01 Long term (current) use of anticoagulants
CPT/HCPCS: 36410; 71045; 74018; 76937; 80053; 82550; 82553; 83735; 83874; 83880; 84484; 85025; 85610; 85730; 86141; 87636; 93005; 93041; 96374; 99284; C1751; 36415

== ENCOUNTER 2022-06-28 12:22 | Inpatient (IN) | payer MEDICARE ==
[~2022-06-28] VITALS: Ht 172.7 cm; Wt 121.7 kg
--- NOTE | 2022-06-28 13:23 | ED Respiratory ---
General Chief Complaint: Respiratory Problems Stated Complaint: SOA Source: patient Exam Limitations: no limitations History of Present Illness Date Seen by Provider: Jun 28, 2022 Time Seen by Provider: 13:23 Initial Comments This is a 82 yo male with history of a-fib, HTN, obesity, CAD, and CHF, who presented to the ER via POV with his daughter for c/o worsening shortness of breath and decreased renal function. States he had contrast imaging ordered today at [facility] in preparation for placement of watchman device. On his labs his renal function was too low to proceed with exam. He notified his senior data scientist office and was instructed to go to [facility] ER or his local ER. Was seen in this ER on 06/19/22 for same complaint, he followed up with his senior data scientist on 06/20/22 and had his Lasix 20mg every other day increased to 40mg daily. After receiving his labs today he was to nervous to take his Lasix this morning. He is unable to lay flat or in a reclined without feeling short of breath. Has SOA with minimal ambulation. No fever, chills, cough, chest pain or pressure, nausea, vomiting, diarrhea. Allergies and Home Medications Allergies Coded Allergies: Penicillins (Verified Allergy, Severe, 07/06/15) amoxicillin (Verified Allergy, Severe, 07/06/15) codeine (Unverified Allergy, Severe, HIVES, 02/07/12) ibuprofen (Verified Allergy, Intermediate, ANKLES SWELL, 11/01/16) digoxin (Unverified Allergy, Unknown, 05/22/22) Patient Home Medication List Home Medication List Reviewed: Yes Allopurinol (Allopurinol) 100 Mg Tablet, 100 MG PO HS, (Reported) Entered as Reported by: ALENA RODGERS on 07/06/15 1517 Last Action: Reviewed Carvedilol (Carvedilol) 25 Mg Tablet, 25 MG PO BID, (Reported) Entered as Reported by: ROBYN ZACARIAS on 05/22/22 1355 Last Action: Reviewed Cholecalciferol (Vitamin D3) (Vitamin D3) 1,000 Unit Tablet, 1,000 UNIT PO HS, (Reported) Entered as Reported by: ALENA RODGERS on 07/06/15 1522 Last Action: Reviewed Furosemide (Lasix) 20 Mg Tablet, 20 MG PO DAILY Prescribed by: SKIP SANTILLAN on 09/01/20 1215 Rivaroxaban (Xarelto) 20 Mg Tablet, 20 MG PO DAILY, (Reported) Entered as Reported by: KIAH MAZARIEGOS on 06/28/22 1856 Last Action: Continued Tamsulosin HCl (Tamsulosin HCl) 0.4 Mg Cap.er.24h, 0.4 MG PO HS, (Reported) Entered as Reported by: CLAUDIA DAVILA on 01/05/18 1118 Last Action: Reviewed Ubidecarenone (Co Q10) 100 Mg Capsule, 100 MG PO DAILY, (Reported) Entered as Reported by: ALFONSO AUSTIN on 06/17/18 0956 Last Action: Reviewed Discontinued Medications Amiodarone HCl (Amiodarone HCl) 200 Mg Tablet, 200 MG PO DAILY, (Reported) Discontinued Reason: No Longer Taking Entered as Reported by: ALFONSO AUSTIN on 11/01/16 0930 Last Action: Discontinued Hydrocodone/Acetaminophen (Hydrocodone-Acetamin 5-325 mg) 5 Mg-325 Mg Tablet, 1 TAB PO Q4H PRN for PAIN-MODERATE (5-7), (Reported) Discontinued Reason: No Longer Taking Entered as Reported by: ROBYN ZACARIAS on 05/22/22 1355 Last Action: Discontinued Potassium Chloride (Potassium Chloride) 20 Meq Tablet.er, 20 MEQ PO BID Discontinued Reason: No Longer Taking Prescribed by: SKIP SANTILLAN on 09/01/20 1215 Last Action: Discontinued Tramadol HCl (Tramadol HCl) 50 Mg Tablet, 50 MG PO DAILY, (Reported) Discontinued Reason: No Longer Taking Entered as Reported by: ROBYN ZACARIAS on 05/22/22 1355 Last Action: Discontinued Review of Systems Review of Systems Constitutional: see HPI Past Wvvmvuq-Xratgr-Ouwzno Hx Patient Social History Tobacco Use?: No Smoking Status: Never a Smoker Smokeless Tobacco Frequency: Never a User Use of E-Cig and/or Vaping dev: No Use of E-Cig and/or Vaping [place]: Never a User Substance use?: No Alcohol Use?: No Pt feels they are or have been: No Immunizations Up To Date Tetanus Booster (TDap): Unknown PED Vaccines UTD: No First/Initial COVID19 Vaccinat: 2020 Second COVID19 Vaccination Stuart: 2021 Third COVID19 Vaccination Date: NO Seasonal Allergies Seasonal Allergies: Yes Past Medical History Surgeries: Yes (SHOULDER X2, COLON RESECTION-DIVERTIC, STENT CAROTID ARTERY) Abdominal, Appendectomy, Defibrillator, Gallbladder, Pacemaker, Tonsillectomy Respiratory: Yes Sleep Apnea Currently Using CPAP: Yes Currently Using BIPAP: No Cardiac: Yes (arrhythmia, PACEMAKER/DEFIB, lower extremity edema, right carotid stent) High Cholesterol, Hypotension, Irregular Heartbeat Neurological: Yes Stroke Reproductive Disorders: No Sexually Transmitted Disease: No HIV/AIDS: No Gastrointestinal: Yes ( COLON RESECTION) Diverticulosis, Polyps Musculoskeletal: Yes (3 LEFT FOOT FRACTURES) Arthritis, Chronic Back Pain Endocrine: No HEENT: No Loss of Vision: Bilateral Hearing Impairment: Bilateral Hearing Aide Cancer: No Psychosocial: No Integumentary: No (SKIN LESIONS) Blood Disorders: No Adverse Reaction/Blood Tranf: No (N/A) Family Medical History Patient reports no known family medical history. Heart Disease, Diabetes, Hypertension Physical Exam Vital Signs - First Documented Capillary Refill : Height: 5'8.50" Weight: 250lbs. 0.0oz. 113.415686ul; 40.00 BMI Method:Stated General Appearance: WD/WN, no apparent distress Eyes: Bilateral Eye Normal Inspection, Bilateral Eye PERRL, Bilateral Eye EOMI HEENT: PERRL/EOMI, normal ENT inspection, pharynx normal Neck: full range of motion, normal inspection Respiratory: no respiratory distress, no accessory muscle use, decreased breath sounds Cardiovascular: normal peripheral pulses, regular rate, rhythm, no gallop; No friction rub Gastrointestinal: normal bowel sounds, non tender, soft Extremities: normal range of motion, non-tender, normal inspection, normal capillary refill, pedal edema Neurologic/Psychiatric: no motor/sensory deficits, alert, normal mood/affect, oriented x 3 Skin: normal color, warm/dry Progress/Results/Core Measures Suspected Sepsis SIRS Temperature: Pulse: Respiratory Rate: Laboratory Tests 06/28/22 14:40: White Blood Count 6.0 Blood Pressure / Mean: Laboratory Tests 06/28/22 14:40: Creatinine 2.43H, INR Comment 3.8H, Platelet Count 170, Total Bilirubin 0.6 Results/Orders Lab Results Laboratory Tests Test 06/28/22 14:40 Range/Units White Blood Count 6.0 4.3-11.0 10^3/uL Red Blood Count 3.61 L 4.30-5.52 10^6/uL Hemoglobin 11.6 L 13.3-17.7 g/dL Hematocrit 36 L 40-54 % Mean Corpuscular Volume 99 80-99 fL Mean Corpuscular Hemoglobin 32 25-34 pg Mean Corpuscular Hemoglobin Concent 32 32-36 g/dL Red Cell Distribution Width 14.1 10.0-14.5 % Platelet Count 170 130-400 10^3/uL Mean Platelet Volume 9.7 9.0-12.2 fL Immature Granulocyte % (Auto) 0 % Neutrophils (%) (Auto) 63 42-75 % Lymphocytes (%) (Auto) 23 12-44 % Monocytes (%) (Auto) 10 0-12 % Eosinophils (%) (Auto) 3 0-10 % Basophils (%) (Auto) 1 0-10 % Neutrophils # (Auto) 3.8 1.8-7.8 10^3/uL Lymphocytes # (Auto) 1.4 1.0-4.0 10^3/uL Monocytes # (Auto) 0.6 0.0-1.0 10^3/uL Eosinophils # (Auto) 0.2 0.0-0.3 10^3/uL Basophils # (Auto) 0.0 0.0-0.1 10^3/uL Immature Granulocyte # (Auto) 0.0 0.0-0.1 10^3/uL Prothrombin Time 37.7 H 12.2-14.7 SEC INR Comment 3.8 H 0.8-1.4 Activated Partial Thromboplast Time 45 H 24-35 SEC Sodium Level 137 135-145 MMOL/L Potassium Level 4.1 3.6-5.0 MMOL/L Chloride Level 104 98-107 MMOL/L Carbon Dioxide Level 25 21-32 MMOL/L Anion Gap 8 5-14 MMOL/L Blood Urea Nitrogen 35 H 7-18 MG/DL Creatinine 2.43 H 0.60-1.30 MG/DL Estimat Glomerular Filtration Rate 26 BUN/Creatinine Ratio 14 Glucose Level 106 H 70-105 MG/DL Calcium Level 9.5 8.5-10.1 MG/DL Corrected Calcium 9.9 8.5-10.1 MG/DL Magnesium Level 2.0 1.6-2.4 MG/DL Total Bilirubin 0.6 0.1-1.0 MG/DL Aspartate Amino Transf (AST/SGOT) 15 5-34 U/L Alanine Aminotransferase (ALT/SGPT) 9 0-55 U/L Alkaline Phosphatase 57 40-136 U/L Total Creatine Kinase 60 30-200 U/L Creatine Kinase MB 1.3 <6.6 NG/ML Myoglobin 108.7 H 10.0-92.0 NG/ML Troponin I 0.030 H <0.028 NG/ML B-Type Natriuretic Peptide 1561.4 H <100.0 PG/ML Total Protein 6.6 6.4-8.2 GM/DL Albumin 3.5 3.2-4.5 GM/DL My Orders Orders - CHRISTY RAMIREZ APRN Cbc With Automated Diff (06/28/22 12:30) Magnesium (06/28/22 12:30) Chest 1 View, Ap/Pa Only (06/28/22 12:30) Ekg Tracing (06/28/22 12:30) Comprehensive Metabolic Panel (06/28/22 12:30) Myoglobin Serum (06/28/22 12:30) Protime With Inr (06/28/22 12:30) Partial Thromboplastin Time (06/28/22 12:30) O2 (06/28/22 12:30) Monitor-Rhythm Ecg Trace Only (06/28/22 12:30) Ed Iv/Invasive Line Start (06/28/22 12:30) Creatine Kinase (06/28/22 12:30) Creatine Kinase Mb (06/28/22 12:30) Bnp [place] (06/28/22 12:30) Troponin I [place] (06/28/22 12:30) Covid 19 Inhouse Test (06/28/22 12:30) Influenza A And B By Pcr (06/28/22 12:30) Furosemide Injection (Lasix Injection) (06/28/22 16:15) Ed Admission (Communication) (06/28/22 16:07) Medications Given in ED Vital Signs/I&O 06/28/22 06/28/22 06/28/22 12:24 12:24 12:24 Temp 36.1 Pulse 70 B/P (MAP) 128/68 (88) Pulse Ox 97 O2 Delivery Room Air Nasal Cannula Room Air O2 Flow Rate 2.00 Capillary Refill : ECG Initial ECG Impression Date: Jun 28, 2022 Initial ECG Impression Time: 12:53 Initial ECG Rate: 63 Initial ECG Intervals ventricular paced with irregular rhythm. Diagnostic Imaging Diagonstic Imaging: Xray Comments [facility] [place], [place] NAME: ANAT KENDALL MED REC#: [id number] PT STATUS: REG ER : 1940 PHYSICIAN: CHRISTY RAMIREZ [facility] ADMIT DATE: 06/28/22/ER Signed Date of Exam:06/28/22 CHEST 1 VIEW, AP/PA ONLY INDICATION: Chest pain, shortness of air. TECHNIQUE: Single-view chest at 01:13 p.m. CORRELATION STUDY: 06/19/2022. FINDINGS: Left-sided pacemaker is unchanged. Stable moderate cardiac enlargement. Mild vascular congestion is present but overall less severe from prior. Left lung base is largely obscured. Question small effusion versus atelectasis or infiltrate. Right lung is generally clear. IMPRESSION: 1. Stable cardiac enlargement with mildly prominent but less severe vascular congestion and edema. 2. Left diaphragm is obscured, may be owing to the cardiac enlargement with possible effusion, atelectasis, or infiltrate not excluded. Dictated by: Dictated on workstation # [id number] Dict: 06/28/22 1326 Trans: 06/28/22 1605 [id number] Interpreted by: LEYDA AUSTIN DO Electronically signed by: LEYDA AUSTIN DO 06/28/22 1605 Departure Communication (Admissions) Time/Spoke to Admitting Phy: 16:06 Dr. Jama Time/Spoke to Consulting Phy: 16:17 Dr. Zepeda Impression Primary Impression: Acute on chronic heart failure Disposition: ADMITTED INPATIENT Condition: Stable Admissions Decision to Admit Reason: Admit from ER (General) Decision to Admit/Date: Jun 28, 2022 Time/Decision to Admit Time: 16:00 Departure-Patient Inst. Referrals: REYNALDO MEJIA MD (PCP/Family) Primary Care Physician CHRISTY RAMIREZ APRN Jun 28, 2022 13:23
--- NOTE | 2022-06-28 13:32 | Diagnostic Imaging Report ---
INDICATION: Chest pain, shortness of air. TECHNIQUE: Single-view chest at 01:13 p.m. CORRELATION STUDY: 06/19/2022. FINDINGS: Left-sided pacemaker is unchanged. Stable moderate cardiac enlargement. Mild vascular congestion is present but overall less severe from prior. Left lung base is largely obscured. Question small effusion versus atelectasis or infiltrate. Right lung is generally clear. IMPRESSION: 1. Stable cardiac enlargement with mildly prominent but less severe vascular congestion and edema. 2. Left diaphragm is obscured, may be owing to the cardiac enlargement with possible effusion, atelectasis, or infiltrate not excluded. Dictated by: Dictated on workstation # [id number]
[2022-06-28 14:49] LABS: BASOPHILS % (AUTO) 1 % (0-10); EOSINOPHILS # (AUTO) 0.2 10^3/uL (0.0-0.3); EOSINOPHILS % (AUTO) 3 % (0-10); HEMATOCRIT 36 % (40-54); HEMOGLOBIN 11.6 g/dL (13.3-17.7); LYMPHOCYTES # (AUTO) 1.4 10^3/uL (1.0-4.0); LYMPHOCYTES % (AUTO) 23 % (12-44); MEAN CORPUSCULAR HEMOGLOBIN 32 pg (25-34); MEAN CORPUSCULAR HGB CONC 32 g/dL (32-36); MEAN CORPUSCULAR VOLUME 99 fL (80-99); MEAN PLATELET VOLUME 9.7 fL (9.0-12.2); MONOCYTES # (AUTO) 0.6 10^3/uL (0.0-1.0); MONOCYTES % (AUTO) 10 % (0-12); NEUTROPHILS # (AUTO) 3.8 10^3/uL (1.8-7.8); NEUTROPHILS % (AUTO) 63 % (42-75); PLATELET COUNT 170 10^3/uL (130-400)
[2022-06-28 15:03] LABS: ALBUMIN 3.5 GM/DL (3.2-4.5); POTASSIUM 4.1 MMOL/L (3.6-5.0)
[2022-06-28 15:05] LABS: CALCIUM 9.5 MG/DL (8.5-10.1)
[2022-06-28 15:06] LABS: TOTAL PROTEIN 6.6 GM/DL (6.4-8.2)
[2022-06-28 15:08] LABS: BILIRUBIN,TOTAL 0.6 MG/DL (0.1-1.0)
[2022-06-28 15:09] LABS: CREATININE SERUM 2.43 MG/DL (0.60-1.30); INR 3.8 (0.8-1.4); PROTHROMBIN TIME PATIENT 37.7 SEC (12.2-14.7)
[2022-06-28 15:20] LABS: CREATINE KINASE MB 1.3 NG/ML (<6.6)
[2022-06-28] MEDS ORDERED: FUROSEMIDE 40 MG/4 ML INJ (LASIX) IVP ONE (16:15)
[2022-06-28 16:45] VITALS: BP 117/76
[2022-06-28] MEDS ORDERED: LACTULOSE SYRUP 10GM/15ML (ENULOSE) 30ML UDC PO PRN (17:00)
[2022-06-28] MEDS ORDERED: polyethylene glycoL POWDER 17 GM (MIRALAX) PACK PO PRN (17:00)
[2022-06-28] MEDS ORDERED: diphenhydrAMINE 25 MG TAB (BENADRYL) PO PRN (17:00)
[2022-06-28] MEDS ORDERED: ONDANSETRON 4 MG (ZOFRAN) ORAL DISSOLVE TAB PO PRN (17:00)
[2022-06-28] MEDS ORDERED: NS IV 500 ML 500 ML IV PRN (17:00)
[2022-06-28] MEDS ORDERED: ANTACID SUSP 30 ML UDC (MYLANTA) PO PRN (17:00)
[2022-06-28] MEDS ORDERED: MILK OF MAGNESIA 400 MG/5 ML 30 ML UDC PO PRN (17:00)
[2022-06-28] MEDS ORDERED: ONDANSETRON 4 MG/2 ML (SDV) Z0FRAN IV PRN (17:00)
[2022-06-28] MEDS ORDERED: RIVAROXABAN 20 MG TABLET (XARELTO) PO SCH (17:00)
[2022-06-28] MEDS ORDERED: MELATONIN 3 MG TABLET PO PRN (17:00)
[2022-06-28] MEDS ORDERED: BISACODYL 10 MG SUPP (DULCOLAX) PR PRN (17:00)
[2022-06-28] MEDS ORDERED: diphenhydrAMINE 50 MG/ML INJ (BENADRYL) IVP PRN (17:00)
[2022-06-28] MEDS ORDERED: CALCIUM CARBONATE 500 MG (TUMS) TAB.CHEW PO PRN (17:00)
[2022-06-28] MEDS: TAMSULOSIN 0.4 MG (FLOMAX) CAP PO SCH (18:48)
[2022-06-28] MEDS ORDERED: RIVA20TA PO (18:56)
[2022-06-28 20:10] VITALS: BP 125/64
[2022-06-28] MEDS: DOCUSATE SODIUM 100 MG (COLACE) CAP PO SCH (20:15)
[2022-06-28] MEDS: SENNOSIDES 8.6 MG (SENOKOT) TAB PO SCH (20:16)
[2022-06-28] MEDS ORDERED: RT-ALBUTEROL SULF 2.5 MG/3 ML PRE-MIX VIAL INH PRN (20:45)
[2022-06-28 22:48] VITALS: BP 130/70
[2022-06-28 23:48] VITALS: BP 108/73
[2022-06-29 03:16] VITALS: BP 117/75
[2022-06-29 04:32] LABS: POTASSIUM 3.7 MMOL/L (3.6-5.0)
[2022-06-29 04:34] LABS: CALCIUM 9.2 MG/DL (8.5-10.1)
[2022-06-29 04:38] LABS: CREATININE SERUM 2.24 MG/DL (0.60-1.30)
[2022-06-29 04:40] LABS: MAGNESIUM 1.8 MG/DL (1.6-2.4)
[2022-06-29] MEDS ORDERED: MAGNESIUM 1 GM/100 ML IVPB 100 ML IV SCH (06:00)
[2022-06-29] MEDS ORDERED: POTASSIUM CL 10MEQ/50ML IVPB 50 ML IV SCH (06:00)
[2022-06-29] MEDS ORDERED: KCL 20 MEQ TAB (K-DUR) PO SCH (06:00)
[2022-06-29 07:51] VITALS: BP 127/71
[2022-06-29] MEDS ORDERED: FUROSEMIDE 40 MG/4 ML INJ (LASIX) IVP ONE (08:15)
[2022-06-29 08:23] VITALS: BP 122/63
[2022-06-29] MEDS: SENNOSIDES 8.6 MG (SENOKOT) TAB PO SCH ×2 (08:26→21:23)
[2022-06-29] MEDS: DOCUSATE SODIUM 100 MG (COLACE) CAP PO SCH ×2 (08:26→21:23)
[2022-06-29] MEDS: ALLOPURINOL 100 MG (ZYLOPRIM) TAB PO SCH (08:27)
--- NOTE | 2022-06-29 10:26 | Consultation-Cardiology ---
HPI-Cardiology Cardiology Consultation Date of Consultation 06/29/22 Date of Admission Time Seen by Provider: 10:19 Indication: Congestive heart failure HPI 82 years old gentleman with a history of coronary artery disease, congestive heart failure. Chronic renal insufficiency. Recently with atrial fibrillation, unable to tolerate aggressive oral anticoagulation and he was scheduled for watchman procedure evaluation. He denied any chest pain but has been having increasing dyspnea and peripheral edema which has been worsening recently. Came into the emergency room for evaluation noted to be in congestive heart failure. He denied any chest pain. No palpitation. No syncope. Home Medications & Allergies Allergies: Coded Allergies: Penicillins (Verified Allergy, Severe, 07/06/15) amoxicillin (Verified Allergy, Severe, 07/06/15) codeine (Unverified Allergy, Severe, HIVES, 02/07/12) ibuprofen (Verified Allergy, Intermediate, ANKLES SWELL, 11/01/16) digoxin (Unverified Allergy, Unknown, 05/22/22) Home Medication List Reviewed: Yes WMO-Mjjjxu-Rvwrdr Hx Patient Social History Marital Status: Employed/Student: retired Smoking Status: Never a Smoker Former smoker/When Quit: Nov 13, 1981 Type Used: Cigarettes, Electronic/Vapor 2nd Hand Smoke Exposure: No Recent Hopitalizations: No Have you traveled recently?: No Alcohol Use?: No Immunizations Up To Date Tetanus Booster (TDap): Unknown Date of Pneumonia Vaccine: Jul 09, 2014 Date of Influenza Vaccine: Jun 15, 2022 Past Medical History Discussed below Family Medical History Significant Family History: Heart Disease, Diabetes, Hypertension Family History: Patient reports no known family medical history. Review of Systems-General Review of Systems Constitutional: see HPI, malaise, weakness EENTM: see HPI, no symptoms reported Respiratory: see HPI; No cough; dyspnea on exertion; No hemoptysis; orthopnea; No phlegm; short of breath; No stridor, No wheezing, No other Cardiovascular: see HPI; No chest pain; edema; No Hx of Intervention, No palpitations, No syncope, No vascular heart diseas, No other Gastrointestinal: no symptoms reported, see HPI Genitourinary: no symptoms reported, see HPI Musculoskeletal: no symptoms reported, see HPI Skin: no symptoms reported, see HPI Psychiatric/Neurological: No Symptoms Reported, See HPI Reviewed Test Results Reviewed Test Results Lab Laboratory Tests Test 06/28/22 14:40 06/28/22 16:17 06/29/22 04:18 Range/Units White Blood Count 6.0 4.3-11.0 10^3/uL Red Blood Count 3.61 L 4.30-5.52 10^6/uL Hemoglobin 11.6 L 13.3-17.7 g/dL Hematocrit 36 L 40-54 % Mean Corpuscular Volume 99 80-99 fL Mean Corpuscular Hemoglobin 32 25-34 pg Mean Corpuscular Hemoglobin Concent 32 32-36 g/dL Red Cell Distribution Width 14.1 10.0-14.5 % Platelet Count 170 130-400 10^3/uL Mean Platelet Volume 9.7 9.0-12.2 fL Immature Granulocyte % (Auto) 0 % Neutrophils (%) (Auto) 63 42-75 % Lymphocytes (%) (Auto) 23 12-44 % Monocytes (%) (Auto) 10 0-12 % Eosinophils (%) (Auto) 3 0-10 % Basophils (%) (Auto) 1 0-10 % Neutrophils # (Auto) 3.8 1.8-7.8 10^3/uL Lymphocytes # (Auto) 1.4 1.0-4.0 10^3/uL Monocytes # (Auto) 0.6 0.0-1.0 10^3/uL Eosinophils # (Auto) 0.2 0.0-0.3 10^3/uL Basophils # (Auto) 0.0 0.0-0.1 10^3/uL Immature Granulocyte # (Auto) 0.0 0.0-0.1 10^3/uL Prothrombin Time 37.7 H 12.2-14.7 SEC INR Comment 3.8 H 0.8-1.4 Activated Partial Thromboplast Time 45 H 24-35 SEC Sodium Level 137 138 135-145 MMOL/L Potassium Level 4.1 3.7 3.6-5.0 MMOL/L Chloride Level 104 103 98-107 MMOL/L Carbon Dioxide Level 25 23 21-32 MMOL/L Anion Gap 8 12 5-14 MMOL/L Blood Urea Nitrogen 35 H 36 H 7-18 MG/DL Creatinine 2.43 H 2.24 H 0.60-1.30 MG/DL Estimat Glomerular Filtration Rate 26 29 BUN/Creatinine Ratio 14 16 Glucose Level 106 H 98 70-105 MG/DL Calcium Level 9.5 9.2 8.5-10.1 MG/DL Corrected Calcium 9.9 8.5-10.1 MG/DL Magnesium Level 2.0 1.8 1.6-2.4 MG/DL Total Bilirubin 0.6 0.1-1.0 MG/DL Aspartate Amino Transf (AST/SGOT) 15 5-34 U/L Alanine Aminotransferase (ALT/SGPT) 9 0-55 U/L Alkaline Phosphatase 57 40-136 U/L Total Creatine Kinase 60 30-200 U/L Creatine Kinase MB 1.3 <6.6 NG/ML Myoglobin 108.7 H 10.0-92.0 NG/ML Troponin I 0.030 H <0.028 NG/ML B-Type Natriuretic Peptide 1561.4 H <100.0 PG/ML Total Protein 6.6 6.4-8.2 GM/DL Albumin 3.5 3.2-4.5 GM/DL Influenza Type A (RT-PCR) Not Detected Not Detecte Influenza Type B (RT-PCR) Not Detected Not Detecte SARS-CoV-2 RNA (RT-PCR) Not Detected Not Detecte Physical Exam Physical Exam Vital Signs Vital Signs - First Documented 06/28/22 06/28/22 16:45 20:32 Resp 15 FiO2 28 Capillary Refill : Less Than 3 Seconds Height, Weight, BMI Height: 5'8.50" Weight: 250lbs. 0.0oz. 113.131546mq; 41.57 BMI Method:Stated General Appearance: No Apparent Distress, WD/WN Eyes: Bilateral Eye Normal Inspection, Bilateral Eye PERRL, Bilateral Eye EOMI HEENT: PERRL/EOMI, TMs Normal, Normal ENT Inspection, Pharynx Normal, Moist Mucous Membranes Neck: Full Range of Motion, Normal Inspection, Non Tender, Supple, Carotid Bruit Respiratory: Chest Non Tender, No Accessory Muscle Use, No Respiratory Distress, Crackles, Decreased Breath Sounds Cardiovascular: Regular Rate, Rhythm, No Edema, No JVD, Normal Peripheral Pulses, Systolic Murmur, Gallop/S3 Gastrointestinal: Normal Bowel Sounds, No Organomegaly, No Pulsatile Mass, Non Tender, Soft Back: Normal Inspection, No CVA Tenderness, No Vertebral Tenderness Extremity: Normal Capillary Refill, Normal Inspection, Normal Range of Motion, Non Tender, No Calf Tenderness, Pedal Edema Neurologic/Psychiatric: Alert, Oriented x3, No Motor/Sensory Deficits, Normal Mood/Affect Skin: Normal Color, Warm/Dry Lymphatic: No Adenopathy A/P-Cardiology Admission Diagnosis Congestive heart failure, acute on chronic left ventricular systolic dysfunction, ischemic cardiomyopathy Coronary artery disease Acute renal failure Pulmonary edema Assessment/Plan Congestive heart failure, acute on chronic left ventricular systolic dysfunction, dilated cardiomyopathy, NYHA class III Last work-up in our hospital reported ejection fraction 30 to 35% We will repeat 2D echocardiogram Admitted and started on diuretic and appears to be responding well. Continue to monitor Shortness of breath secondary to pulmonary edema. Being diuresed cautiously. Monitor renal function closely Acute on chronic renal failure, chronic kidney disease stage IV. Followed by [facility]. Continue to monitor renal function while receiving diuretics Paroxysmal atrial fibrillation, patient was maintained on Eliquis. Has been following with Dr. Washington as an outpatient. He was scheduled for evaluation for watchman procedure Coronary artery disease, patient had an abnormal stress test with baseline left bundle branch block with fixed defect involving the whole inferior wall and inferoseptum and inferolateral wall with mild reversibility with stress score 25, SDS 6, Recommended cardiac catheterization, Patient currently following with Dr. Kraft at [facility] and does not recall having a cardiac catheterization done. Hypertension, restart home medication and monitor blood pressure Hyperlipidemia, maintained on statin, monitor lipids History of dizziness, lightheadedness, Seen by Dr. Back in the past, could not have an MRI done due to his old device. Carotid stenosis, history of stent in the right carotid artery in 2008 Followed by his primary dentistry professor History of CVA with some residual dizziness and lightheadedness. COPD, obstructive sleep apnea, followed by primary care physician History of permanent pacemaker/ICD, had a generator replaced by Dr. [place] Followed by his primary EP and primary dentistry professor LAKSHMI SALDIVAR MD Jun 29, 2022 10:26
[2022-06-29 12:00] VITALS: BP 121/62
--- NOTE | 2022-06-29 14:55 | History & Physical-Hospitalist ---
History of Present Illness HPI/Chief Complaint Shaheed Bishop is an 82 year old male with PMH HTN, CAD, AFib, CKD 3b, BPH, morbid obesity, who presented with shortness of breath. He reports shortness of breath with minimal ambulation. He has also been short of breath while talking. He has had worsening leg swelling. His diuretic regimen was decreased recently and he says "things have went downhill since then". He denies chest pain and palpitations. He denies fever and chills. He denies nausea, vomiting, abdominal pain, diarrhea. He is scheduled to undergo a Watchman procedure for his atrial fibrillation. He has chronic kidney disease and follows with a senior catering sales manager. Source: patient Exam Limitations: no limitations Date Seen 06/29/22 Time Seen by a Provider: 10:35 Attending Physician Jovnai Velazquez MD PCP Admitting Physician: Constantine Frost MD Attending Physician: Constantine Frost MD Referring Physician Date of Admission Jun 28, 2022 at 16:08 Home Medications & Allergies Home Medications Reviewed patient Home Medication Reconciliation performed by pharmacy medication reconciliations central supply technician and/or nursing. Patients Allergies have been reviewed. Allergies Allergies Coded Allergies Penicillins (Verified Allergy, Severe, 07/06/15) amoxicillin (Verified Allergy, Severe, 07/06/15) codeine (Unverified Allergy, Severe, HIVES, 02/07/12) ibuprofen (Verified Allergy, Intermediate, ANKLES SWELL, 11/01/16) digoxin (Unverified Allergy, Unknown, 05/22/22) Past Sedptov-Mtqzen-Ijnlft Hx Patient Social History Marrital Status: Employed/Student: retired Tobacco Use?: No Smoking Status: Never a Smoker Smokeless Tobacco Frequency: Never a User Use of E-Cig and/or Vaping dev: No Use of E-Cig and/or Vaping Indio: Never a User Substance use?: No Alcohol Use?: No Pt feels they are or have been: No Immunizations Up To Date Date of Influenza Vaccine: Jun 15, 2022 First/Initial COVID19 Vaccinat: 2020 Second COVID19 Vaccination Stuart: 2020 Tetanus Booster (TDap): Unknown PED Vaccines UTD: No Date of Pneumonia Vaccine: Jul 09, 2014 Seasonal Allergies Seasonal Allergies: Yes Current Status Advance Directives: No Advance Directive Location: Home Communicates: Verbally Primary Language: Maori Preferred Spoken Language: Maori Is interpretation needed?: No Sensory deficits: Vision impairment, Hearing impairment Implanted or Applied Medical D: BiPAP, Pacemaker, Stents Past Medical History Surgeries: Abdominal, Appendectomy, Defibrillator, Gallbladder, Pacemaker, Tonsillectomy Sleep Apnea Currently Using CPAP: Yes Currently Using BIPAP: No High Cholesterol, Hypotension, Irregular Heartbeat Stroke Sexually Transmitted Disease: No HIV/AIDS: No Diverticulosis, Polyps Arthritis, Chronic Back Pain Loss of Vision: Bilateral Hearing Impairment: Bilateral Hearing Aide Blood Disorders: No Adverse Reaction/Blood Tranf: No (N/A) Family Medical History Patient reports no known family medical history. Heart Disease, Diabetes, Hypertension Review of Systems Constitutional: weakness EENTM: no symptoms reported Respiratory: dyspnea on exertion, short of breath Cardiovascular: no symptoms reported Gastrointestinal: no symptoms reported Physical Exam Physical Exam Vital Signs Vital Signs - First Documented 06/28/22 06/28/22 16:45 20:32 Resp 15 FiO2 28 Capillary Refill : Less Than 3 Seconds Height, Weight, BMI Height: 5'8.50" Weight: 250lbs. 0.0oz. [id number]; 41.57 BMI Method:Stated General Appearance: No Apparent Distress, Obese HEENT: PERRL/EOMI, Pharynx Normal Neck: Normal Inspection, Supple Respiratory: No Accessory Muscle Use, No Respiratory Distress, Crackles Cardiovascular: Regular Rate, Rhythm, No Murmur Gastrointestinal: Normal Bowel Sounds, Non Tender, Soft Extremity: Normal Inspection; No Inflammation; Pedal Edema, Swelling Neurologic/Psychiatric: Alert, Normal Mood/Affect Skin: Normal Color, Warm/Dry Results Results/Procedures Labs Laboratory Tests 06/28/22 14:40 06/29/22 04:18 Patient resulted labs reviewed. Imaging: Reviewed Imaging Report Assessment/Plan Admission Diagnosis Acute on chronic heart failure exacerbation Admission Status: Inpatient Order (span 2 midnights) Reason for Inpatient Admission: IV diuresis Assessment and Plan Acute on chronic CHF exacerbation MANNY on CKD 3b HTN CAD AFib BPH Morbid obesity BNP elevated Chest xray with cardiomegaly and vascular congestion Cardiology consulted Lasix Kidney function improving with diuresis Low sodium diet Echo Continue home meds DVT prophylaxis: already receiving therapeutic anticoagulation Diagnosis/Problems Diagnosis/Problems (1) Acute on chronic HFrEF (heart failure with reduced ejection fraction) Status: Acute (2) Acute kidney injury superimposed on chronic kidney disease Status: Acute (3) Stage 3b chronic kidney disease Status: Acute (4) HTN (hypertension) Status: Chronic (5) CAD (coronary artery disease) Status: Chronic (6) Afib Status: Chronic (7) BPH (benign prostatic hyperplasia) Status: Chronic (8) Morbid obesity Status: Chronic CONSTANTINE FROST MD Jun 29, 2022 14:55
[2022-06-29 15:52] LABS: CREATININE SERUM 2.26 MG/DL (0.60-1.30)
[2022-06-29 15:54] VITALS: BP 121/62
[2022-06-29] MEDS: TAMSULOSIN 0.4 MG (FLOMAX) CAP PO SCH (17:37)
[2022-06-29] MEDS: RIVAROXABAN 15 MG TABLET (XARELTO) PO SCH (17:37)
[2022-06-29 19:42] VITALS: BP 135/83
[2022-06-29] MEDS ORDERED: NON-FORMULARY MEDICATION 1 EA EA (Carvedilol 25 MG) PO SCH (21:00)
[2022-06-30] VITALS: BP 114/56
[2022-06-30 04:00] VITALS: BP 119/62
[2022-06-30 06:16] LABS: POTASSIUM 3.9 MMOL/L (3.6-5.0)
[2022-06-30 06:17] LABS: CALCIUM 8.8 MG/DL (8.5-10.1)
[2022-06-30 06:21] LABS: CREATININE SERUM 2.18 MG/DL (0.60-1.30)
[2022-06-30 06:24] LABS: MAGNESIUM 1.9 MG/DL (1.6-2.4)
[2022-06-30 07:54] VITALS: BP 123/74
[2022-06-30] MEDS ORDERED: FUROSEMIDE 40 MG/4 ML INJ (LASIX) IVP ONE (08:45)
[2022-06-30] MEDS ORDERED: RIVAROXABAN 20 MG TABLET (XARELTO) PO SCH (09:00)
[2022-06-30] MEDS: ALLOPURINOL 100 MG (ZYLOPRIM) TAB PO SCH (09:24)
[2022-06-30] MEDS: DOCUSATE SODIUM 100 MG (COLACE) CAP PO SCH ×2 (09:24→19:33)
[2022-06-30] MEDS: SENNOSIDES 8.6 MG (SENOKOT) TAB PO SCH ×2 (09:24→19:33)
--- NOTE | 2022-06-30 11:33 | Cardiology Progress Note ---
Subjective Date Seen by Provider: Jun 30, 2022 Time Seen by Provider: 11:31 Subjective/Events-last exam Patient was seen at bedside, sitting comfortably, feeling better today, breathing better today. Review of Systems General: No Chills, No Night Sweats, No Fatigue, No Malaise, No Appetite, No Other HEENT: No Head Aches, No Visual Changes, No Eye Pain, No Ear Pain, No Dysphasia, No Sinus Congestion, No Post Nasal Drip, No Sore Throat, No Other Pulmonary: No Dyspnea, No Cough, No Pleuritic Chest Pain, No Other Cardiovascular: No: Chest Pain, Palpitations, Orthopnea, Paroxysmal Noc. Dyspnea, Edema, Lt Headedness, Other Objective-Cardiology Exam Last Set of Vital Signs Vital Signs 06/28/22 06/30/22 06/30/22 20:32 07:54 10:52 Temp 36.0 Pulse 82 Resp 14 B/P (MAP) 123/74 (90) Pulse Ox 98 O2 Delivery Room Air O2 Flow Rate 0.00 FiO2 28 I&O Intake and Output 06/30/22 00:00 Intake Total 1640 ml Output Total 2850 ml Balance -1210 ml Intake Oral 1640 ml Output Urine Total 2850 ml General: Alert, Oriented X3, Cooperative HEENT: Atraumatic, PERRLA Neck: Supple, No JVD, No Thyromegaly Lungs: Normal Air Movement, Other (Bilateral rhonchi) Heart: Regular Rate, Normal S1, Normal S2, Other (Systolic murmur) Abdomen: Normal Bowel Sounds, Soft, No Tenderness, No Hepatosplenomegaly, No Masses Extremities: No Clubbing, No Cyanosis, Normal Pulses, No Tenderness/Swelling, Other (Mild edema) Skin: No Rashes, No Breakdown, No Significant Lesion Neuro: Normal Gait, Normal Speech, Normal Tone, Sensation Intact Psych/Mental Status: Mental Status NL, Mood NL Results Lab Laboratory Tests 06/29/22 15:28 06/30/22 05:30 A/P-Cardiology Admission Diagnosis Congestive heart failure, acute on chronic left ventricular systolic dysfunction, ischemic cardiomyopathy Coronary artery disease Acute renal failure Pulmonary edema Assessment/Plan Congestive heart failure, acute on chronic left ventricular systolic dysfunction, dilated cardiomyopathy, NYHA class III Echocardiogram done on June 30, 2022 with ejection fraction 25 to 30%, pulmonary artery pressure 45 to 50 mmHg, Responding well to diuretics. Continue to monitor Shortness of breath secondary to pulmonary edema. Responding well to diuretics, feeling better. Planning to switch to oral diuretics Acute on chronic renal failure, chronic kidney disease stage IV. Followed by [facility]. Continue to monitor renal function while receiving diuretics Paroxysmal atrial fibrillation, patient was maintained on Eliquis. Has been following with Dr. Washington as an outpatient. He was scheduled for evaluation for watchman procedure Coronary artery disease, patient had an abnormal stress test with baseline left bundle branch block with fixed defect involving the whole inferior wall and inferoseptum and inferolateral wall with mild reversibility with stress score 25, SDS 6, Recommended cardiac catheterization, Patient currently following with Dr. Kraft at [facility] and does not recall having a cardiac catheterization done. Hypertension, restart home medication and monitor blood pressure Hyperlipidemia, maintained on statin, monitor lipids History of dizziness, lightheadedness, Seen by Dr. Back in the past, could not have an MRI done due to his old device. Carotid stenosis, history of stent in the right carotid artery in 2008 Followed by his primary data analyst report writer History of CVA with some residual dizziness and lightheadedness. COPD, obstructive sleep apnea, followed by primary care physician History of permanent pacemaker/ICD, had a generator replaced by Dr. Washington Followed by his primary EP and primary data analyst report writer LAKSHMI SALDIVAR MD Jun 30, 2022 11:33
[2022-06-30 11:44] VITALS: BP 116/54
[2022-06-30 16:33] VITALS: BP 112/65
[2022-06-30] MEDS: TAMSULOSIN 0.4 MG (FLOMAX) CAP PO SCH (17:09)
[2022-06-30] MEDS: RIVAROXABAN 15 MG TABLET (XARELTO) PO SCH (17:09)
[2022-06-30] MEDS: ACETAMINOPHEN 325 MG TABLET PO PRN (17:10)
--- NOTE | 2022-06-30 17:42 | Progress Note - Hospitalist ---
Subjective HPI/CC On Admission Date Seen by Provider: Jun 30, 2022 Time Seen by Provider: 10:30 Shaheed Bishop is an 82 year old male with PMH HTN, CAD, AFib, CKD 3b, BPH, morbid obesity, who presented with shortness of breath. He reports shortness of breath with minimal ambulation. He has also been short of breath while talking. He has had worsening leg swelling. His diuretic regimen was decreased recently and he says "things have went downhill since then". He denies chest pain and palpitations. He denies fever and chills. He denies nausea, vomiting, abdominal pain, diarrhea. He is scheduled to undergo a Watchman procedure for his atrial fibrillation. He has chronic kidney disease and follows with a a and p technician. Subjective/Events-last exam He is feeling better. He still has leg swelling. He is able to walk without getting short of breath. Objective Exam Vital Signs Vital Signs Date Time Temp Pulse Resp B/P (MAP) Pulse Ox O2 Delivery O2 Flow Rate FiO2 06/30/22 16:33 36.4 79 19 112/65 (81) 96 Room Air 06/30/22 10:52 0.00 06/28/22 20:32 28 Capillary Refill : Less Than 3 Seconds General Appearance: No Apparent Distress, Obese Respiratory: Lungs Clear, No Respiratory Distress Cardiovascular: Regular Rate, Rhythm, No Murmur Gastrointestinal: Normal Bowel Sounds, Soft Extremity: Non Tender, Pedal Edema, Swelling Neurologic/Psychiatric: Alert, Normal Mood/Affect Skin: Normal Color, Warm/Dry Results/Procedures Lab Laboratory Tests 06/30/22 05:30 Patient resulted labs reviewed. Imaging: Reviewed Imaging Report Assessment/Plan Assessment and Plan Assess & Plan/Chief Complaint Acute on chronic HFrEF exacerbation MANNY on CKD 3b HTN CAD AFib BPH Morbid obesity Cardiology following Continue IV Lasix, transition to oral tomorrow morning Kidney function improving with diuresis Low sodium diet, dietary consult for education Echo with reduced EF 25-30% Continue home meds DVT prophylaxis: already receiving therapeutic anticoagulation Diagnosis/Problems Diagnosis/Problems (1) Acute on chronic HFrEF (heart failure with reduced ejection fraction) Status: Acute (2) Acute kidney injury superimposed on chronic kidney disease Status: Acute (3) Stage 3b chronic kidney disease Status: Acute (4) HTN (hypertension) Status: Chronic (5) CAD (coronary artery disease) Status: Chronic (6) Afib Status: Chronic (7) BPH (benign prostatic hyperplasia) Status: Chronic (8) Morbid obesity Status: Chronic CONSTANTINE FROST MD Jun 30, 2022 17:42
[2022-06-30 19:26] VITALS: BP 109/68
[2022-07-01 00:21] VITALS: BP 117/63
[2022-07-01 03:57] VITALS: BP 125/65
[2022-07-01 07:21] LABS: CALCIUM 8.9 MG/DL (8.5-10.1); CREATININE SERUM 2.62 MG/DL (0.60-1.30); MAGNESIUM 1.8 MG/DL (1.6-2.4); POTASSIUM 4.3 MMOL/L (3.6-5.0)
[2022-07-01 07:50] VITALS: BP 136/74
[2022-07-01] MEDS ORDERED: RIVA20TA PO (08:59)
[2022-07-01] MEDS ORDERED: TMSL.4C PO (08:59)
[2022-07-01] MEDS ORDERED: FUROSEMIDE 40 MG (LASIX) TAB PO SCH (09:00)
[2022-07-01] MEDS ORDERED: FURO-125 PO (09:01)
[2022-07-01] MEDS ORDERED: CHOL100048 PO (09:02)
[2022-07-01] MEDS: ACETAMINOPHEN 325 MG TABLET PO PRN (09:11)
[2022-07-01] MEDS: ALLOPURINOL 100 MG (ZYLOPRIM) TAB PO SCH (09:11)
[2022-07-01] MEDS: DOCUSATE SODIUM 100 MG (COLACE) CAP PO SCH (09:12)
[2022-07-01] MEDS: SENNOSIDES 8.6 MG (SENOKOT) TAB PO SCH (09:12)
[2022-07-01] MEDS ORDERED: FURO40TA4 PO ×2 (09:33→10:21)
--- NOTE | 2022-07-01 10:05 | Cardiology Progress Note ---
Subjective Date Seen by Provider: Jul 01, 2022 Time Seen by Provider: 10:04 Subjective/Events-last exam Patient was seen at bedside, sitting comfortably, feeling better and breathing better Review of Systems General: No Chills, No Night Sweats, No Fatigue, No Malaise, No Appetite, No Other HEENT: No Head Aches, No Visual Changes, No Eye Pain, No Ear Pain, No Dysphas ia, No Sinus Congestion, No Post Nasal Drip, No Sore Throat, No Other Pulmonary: No Dyspnea, No Cough, No Pleuritic Chest Pain, No Other Cardiovascular: No: Chest Pain, Palpitations, Orthopnea, Paroxysmal Noc. Dyspnea, Edema, Lt Headedness, Other Objective-Cardiology Exam Last Set of Vital Signs Vital Signs 06/28/22 07/01/22 07/01/22 20:32 07:50 08:00 Temp 36.9 Pulse 64 Resp 18 B/P (MAP) 136/74 (94) Pulse Ox 94 O2 Delivery Room Air O2 Flow Rate 0.00 FiO2 28 I&O Intake and Output 07/01/22 00:00 Intake Total 2170 ml Output Total 550 ml Balance 1620 ml Intake Oral 2170 ml Output Urine Total 550 ml # Voids 4 # Bowel Movements 1 General: Alert, Oriented X3, Cooperative HEENT: Atraumatic, PERRLA Neck: Supple, No JVD, No Thyromegaly Lungs: Normal Air Movement, Other (Bilateral rhonchi) Heart: Regular Rate, Normal S1, Normal S2, Other (Systolic murmur) Abdomen: Normal Bowel Sounds, Soft, No Tenderness, No Hepatosplenomegaly, No Masses Extremities: No Clubbing, No Cyanosis, Normal Pulses, No Tenderness/Swelling, Other (Mild edema) Skin: No Rashes, No Breakdown, No Significant Lesion Neuro: Normal Gait, Normal Speech, Normal Tone, Sensation Intact Psych/Mental Status: Mental Status NL, Mood NL Results Lab Laboratory Tests 07/01/22 06:39 A/P-Cardiology Admission Diagnosis Congestive heart failure, acute on chronic left ventricular systolic dysfunction, ischemic cardiomyopathy Coronary artery disease Acute renal failure Pulmonary edema Assessment/Plan Congestive heart failure, acute on chronic left ventricular systolic dysfunction, dilated cardiomyopathy, NYHA class III Echocardiogram done on June 30, 2022 with ejection fraction 25 to 30%, pulm onary artery pressure 45 to 50 mmHg, Patient is feeling better, back to his baseline Okay for discharge and follow-up with his primary alarm operator as an outpatient within the next week Shortness of breath secondary to pulmonary edema. Responding well to diuretics, feeling better. Started on oral diuretics and tolerating it well. Acute on chronic renal failure, chronic kidney disease stage IV. Followed by [facility]. Continue to monitor renal function while receiving diuretics Paroxysmal atrial fibrillation, patient was maintained on Eliquis. Has been following with Dr. Washington as an outpatient. He was scheduled for evaluation for watchman procedure Coronary artery disease, patient had an abnormal stress test with baseline left bundle branch block with fixed defect involving the whole inferior wall and inferoseptum and inferolateral wall with mild reversibility with stress score 25, SDS 6, Recommended cardiac catheterization, Patient currently following with Dr. Kraft at [facility] and does not recall having a cardiac catheterization done. Hypertension, restart home medication and monitor blood pressure Hyperlipidemia, maintained on statin, monitor lipids History of dizziness, lightheadedness, Seen by Dr. Back in the past, could not have an MRI done due to his old device. Carotid stenosis, history of stent in the right carotid artery in 2008 Followed by his primary alarm operator History of CVA with some residual dizziness and lightheadedness. COPD, obstructive sleep apnea, followed by primary care physician History of permanent pacemaker/ICD, had a generator replaced by Dr. Washington Followed by his primary EP and primary alarm operator LAKSHMI SALDIVAR MD Jul 01, 2022 10:05
--- NOTE | 2022-07-01 10:20 | Discharge Summary ---
Diagnosis/Chief Complaint Date of Admission Jun 28, 2022 at 16:08 Date of Discharge Admission Diagnosis Acute on chronic heart failure exacerbation Primary Care Jovani Velazquez MD Discharge Diagnosis (1) Acute on chronic HFrEF (heart failure with reduced ejection fraction) Status: Acute (2) Acute kidney injury superimposed on chronic kidney disease Status: Acute (3) Stage 3b chronic kidney disease Status: Acute (4) HTN (hypertension) Status: Chronic (5) CAD (coronary artery disease) Status: Chronic (6) Afib Status: Chronic (7) BPH (benign prostatic hyperplasia) Status: Chronic (8) Morbid obesity Status: Chronic Discharge Summary Discharge Physical Exam Allergies: Coded Allergies: Penicillins (Verified Allergy, Severe, 07/06/15) amoxicillin (Verified Allergy, Severe, 07/06/15) codeine (Unverified Allergy, Severe, HIVES, 02/07/12) ibuprofen (Verified Allergy, Intermediate, ANKLES SWELL, 11/01/16) digoxin (Unverified Allergy, Unknown, 05/22/22) Vitals & I&Os Vital Signs Date Time Temp Pulse Resp B/P (MAP) Pulse Ox O2 Delivery O2 Flow Rate FiO2 07/01/22 13:18 36.7 81 18 113/70 96 Room Air 0.00 06/28/22 20:32 28 General Appearance: No Apparent Distress, WD/WN Cardiovascular: Regular Rate, Rhythm, No Murmur Neurologic/Psychiatric: Alert, Oriented x3 Hospital Course Patient was admitted to the hospital due to acutely decompensated heart failure. He was treated with IV diuretics and did very well. He was seen by Dr. Zepeda for cardiology. He was able to be discharged home in stable and improved condition. He required no oxygen upon discharge. He was to resume his normal home Lasix regimen of twice daily dosing on Tuesdays and Fridays. He has follow-up with his primary pulp piler, Dr. Kraft. Labs (last 24 hrs) Patient resulted labs reviewed. Pending Labs Imaging: Reviewed Imaging Report Discussion & Recommendations Discharge Planning: >30 minutes discharge planning Discharge Home Medications: Active Scripts Active Xarelto Tablet (Rivaroxaban) 15 Mg Tablet 15 Mg PO DAILY@1700 Furosemide 40 Mg Tablet 40 Mg PO BID ,FRI Reported Vitamin D3 (Cholecalciferol (Vitamin D3)) 25 Mcg (1000 Unit) Capsule 25 Mcg PO DAILY Flomax (Tamsulosin HCl) 0.4 Mg Cap 0.4 Mg PO HS Carvedilol 25 Mg Tablet 25 Mg PO BID Co Q10 (Ubidecarenone) 100 Mg Capsule 100 Mg PO DAILY Allopurinol 100 Mg Tablet 100 Mg PO DAILY Instructions to patient/family Please see electronic discharge instructions given to patient. DALLIN OLGUIN MD Jul 01, 2022 10:20
[2022-07-01] MEDS ORDERED: RIVA15TA2 PO (10:21)
--- NOTE | 2022-07-01 10:24 | Discharge Inst-Simple/Standard ---
Discharge Inst-Standard Discharge Medications New, Converted or Re-Newed RX: Transmitted to Pharmacy Patient Instructions/Follow Up Plan of Care/Instructions/FU: Please continue to take your medications as written. Please follow up with your primary care doctor to follow up this hospital stay. Activity as Tolerated: Yes Discharge Diet: Low Sodium Diet Return to The Hospital For: Chest pain, shortness of breath, fever, weakness, if you feel you are getting worse. DALLIN OLGUIN MD Jul 01, 2022 10:24
[2022-07-01 11:47] VITALS: BP 113/70
[2022-07-01 13:18] VITALS: BP 113/70
== END 2022-07-01 13:18 | disposition home or self-care (01) | DRG 291 ==
LOC: EDUNIT# 12:22 → ER 12:23 → OBSVTOIN 16:08 → CSD 16:08 → 4TH 06-30 18:26
PROVIDERS: ADMIT Internal Medicine; ATTEND Internal Medicine
DX: I13.0 Hypertensive heart and chronic kidney disease with heart failure and stage 1 through stage 4 chronic kidney disease, or unspecified chronic kidney disease (principal); I50.23 Acute on chronic systolic (congestive) heart failure; N17.9 Acute kidney failure, unspecified; Z68.41 Body mass index [BMI] 40.0-44.9, adult; N18.32 Chronic kidney disease, stage 3b; I25.10 Atherosclerotic heart disease of native coronary artery without angina pectoris; I48.0 Paroxysmal atrial fibrillation; N40.0 Benign prostatic hyperplasia without lower urinary tract symptoms; Z20.822 Contact with and (suspected) exposure to COVID-19; I25.5 Ischemic cardiomyopathy; E66.01 Morbid (severe) obesity due to excess calories; E78.5 Hyperlipidemia, unspecified; J44.9 Chronic obstructive pulmonary disease, unspecified; G47.33 Obstructive sleep apnea (adult) (pediatric); H54.3 Unqualified visual loss, both eyes; Z97.4 Presence of external hearing-aid; Z95.810 Presence of automatic (implantable) cardiac defibrillator; Z95.820 Peripheral vascular angioplasty status with implants and grafts; Z79.01 Long term (current) use of anticoagulants; Z88.6 Allergy status to analgesic agent; Z88.1 Allergy status to other antibiotic agents; Z88.5 Allergy status to narcotic agent; Z88.0 Allergy status to penicillin; Z88.8 Allergy status to other drugs, medicaments and biological substances
CPT/HCPCS: 36410; 36415; 71045; 76937; 80048; 80053; 82550; 82553; 83735; 83874; 83880; 84484; 85025; 85610; 85730; 87636; 93005; 93041; 93306; 94660; 94664; 94760

== ENCOUNTER → 2022-08-07 | Outpatient (CLI) | payer MEDICARE ==
[~2022-08-07] MED LIST changes: +CHOL100048 PO; +FURO40TA4 PO; +RIVA15TA2 PO; +RIVA20TA PO; +TMSL.4C PO
--- NOTE | 2022-08-07 12:36 | Diagnostic Imaging Report ---
PROCEDURE: US right lower extremity venous. TECHNIQUE: Multiple real-time grayscale images were obtained over the right lower extremity in various projections. Additional spectral analysis and color Doppler duplex images were also obtained. INDICATION: Right large dylan-swelling. There is no evidence of right lower extremity DVT. Right lower extremity deep venous system shows normal compressibility with normal response to augmentation and Valsalva. No fluid collection or mass is detected. IMPRESSION: No evidence of right lower extremity DVT. Dictated by: Dictated on workstation # [id number]
== END ==
LOC: RAD 12:00
PROVIDERS: ATTEND Internal Medicine
DX: M79.89 Other specified soft tissue disorders (principal)

== ENCOUNTER 2022-11-19 10:34 | Emergency (ER) | payer MEDICARE ==
[2022-11-19] MEDS ORDERED: RT-ALBUTEROL/IPRATROPIUM 3 ML (DUONEB) VIAL INH ONE (11:15)
[2022-11-19] MEDS ORDERED: methylPREDNISolone 125 MG (Solu-MEDROL) VIAL IVP ONE (11:15)
--- NOTE | 2022-11-19 11:18 | ED Respiratory ---
General Chief Complaint: Respiratory Problems Stated Complaint: SOB | CHEST CONGESTION | Source: patient, family Exam Limitations: no limitations History of Present Illness Date Seen by Provider: Nov 19, 2022 Time Seen by Provider: 11:00 Initial Comments 82-year-old male presents to the ED with complaints of shortness of air. States he got really bad last night and continued into the morning. States he used his inhaler that provided a little bit of relief. States he was recently diagnosed with asthma and COPD. He also has congestive heart failure, A-fib, and kidney disease. Denies fevers, cough, chest pain, abdominal pain, nausea, vomiting, diarrhea. He currently has a watchman, and takes Plavix and aspirin. He also takes Lasix 3 times a week. Allergies and Home Medications Allergies Coded Allergies: Penicillins (Verified Allergy, Severe, 07/06/15) amoxicillin (Verified Allergy, Severe, 07/06/15) codeine (Unverified Allergy, Severe, HIVES, 02/07/12) ibuprofen (Verified Allergy, Intermediate, ANKLES SWELL, 11/01/16) digoxin (Unverified Allergy, Unknown, 05/22/22) Patient Home Medication List Home Medication List Reviewed: Yes Allopurinol (Allopurinol) 100 Mg Tablet, 100 MG PO DAILY, (Reported) Entered as Reported by: ALENA RODGERS on 07/06/15 1517 Carvedilol (Carvedilol) 25 Mg Tablet, 25 MG PO BID, (Reported) Entered as Reported by: ROBYN ZACARIAS on 05/22/22 1355 Cholecalciferol (Vitamin D3) (Vitamin D3) 25 Mcg (1000 Unit) Capsule, 25 MCG PO DAILY, (Reported) Entered as Reported by: CARRIE CLAYTON on 07/01/22 0902 Furosemide (Furosemide) 40 Mg Tablet, 40 MG PO BID ,FRI Prescribed by: DALLIN OLGUIN on 07/01/22 1021 Ipratropium/Albuterol Sulfate (Iprat-Albut 0.5-3(2.5) mg/3 ml) 0.5 Mg-3 Mg (2.5 Mg Base)/3 Ml Ampul.neb, 3 ML IH Q6H PRN for SHORTNESS OF BREATH Prescribed by: Lindy Mcnair on 11/19/22 1310 Prednisone (Prednisone) 50 Mg Tab, 50 MG PO DAILY Prescribed by: Lindy Mcnair on 11/19/22 1310 Rivaroxaban (Xarelto Tablet) 15 Mg Tablet, 15 MG PO DAILY@1700 Prescribed by: DALLIN OLGUIN on 07/01/22 1021 Tamsulosin HCl (Flomax) 0.4 Mg Cap, 0.4 MG PO HS, (Reported) Entered as Reported by: CARRIE CLAYTON on 07/01/22 0859 Ubidecarenone (Co Q10) 100 Mg Capsule, 100 MG PO DAILY, (Reported) Entered as Reported by: ALFONSO AUSTIN on 06/17/18 0956 Review of Systems Review of Systems Constitutional: see HPI Past Xedbtnb-Fpfmjy-Kcbyff Hx Patient Social History Tobacco Use?: No Smoking Status: Former Smoker Use of E-Cig and/or Vaping dev: No Substance use?: No Alcohol Use?: No Pt feels they are or have been: No Immunizations Up To Date Tetanus Booster (TDap): Unknown PED Vaccines UTD: No First/Initial COVID19 Vaccinat: UNKNOWN Second COVID19 Vaccination Stuart: UNKNOWN Third COVID19 Vaccination Date: UNKNOWN Seasonal Allergies Seasonal Allergies: Yes Past Medical History Surgeries: Yes (SHOULDER X2, COLON RESECTION-DIVERTIC, STENT CAROTID ARTERY) Abdominal, Appendectomy, Defibrillator, Gallbladder, Pacemaker, Tonsillectomy Respiratory: Yes Sleep Apnea Currently Using CPAP: Yes Currently Using BIPAP: No Cardiac: Yes (arrhythmia, PACEMAKER/DEFIB, lower extremity edema, right carotid stent) High Cholesterol, Hypotension, Irregular Heartbeat Neurological: Yes Stroke Reproductive Disorders: No Sexually Transmitted Disease: No HIV/AIDS: No Gastrointestinal: Yes ( COLON RESECTION) Diverticulosis, Polyps Musculoskeletal: Yes (3 LEFT FOOT FRACTURES) Arthritis, Chronic Back Pain Endocrine: No HEENT: No Loss of Vision: Bilateral Hearing Impairment: Bilateral Hearing Aide Cancer: No Psychosocial: No Integumentary: No (SKIN LESIONS) Blood Disorders: No Adverse Reaction/Blood Tranf: No (N/A) Family Medical History Patient reports no known family medical history. Heart Disease, Diabetes, Hypertension Physical Exam Vital Signs - First Documented 11/19/22 10:46 Pulse 61 Resp 17 B/P (MAP) 129/75 (93) Pulse Ox 96 O2 Delivery Room Air Capillary Refill : Height: 5'8.50" Weight: 250lbs. 0.0oz. [id number]; 40.80 BMI Method:Stated General Appearance: WD/WN, no apparent distress Neck: supple, normal inspection Respiratory: no respiratory distress, no accessory muscle use, decreased breath sounds Cardiovascular: regular rate, rhythm, no edema, no gallop, no JVD, no murmur Extremities: normal range of motion, normal inspection Neurologic/Psychiatric: alert, normal mood/affect Skin: normal color, warm/dry Progress/Results/Core Measures Suspected Sepsis SIRS Temperature: Pulse: Respiratory Rate: Laboratory Tests 11/19/22 11:54: White Blood Count 6.1 Blood Pressure / Mean: Laboratory Tests 11/19/22 11:54: Creatinine 2.27H, INR Comment 1.2, Platelet Count 143, Total Bilirubin 1.0 Results/Orders Lab Results Laboratory Tests Test 11/19/22 11:54 Range/Units White Blood Count 6.1 4.3-11.0 10^3/uL Red Blood Count 3.96 L 4.30-5.52 10^6/uL Hemoglobin 12.7 L 13.3-17.7 g/dL Hematocrit 39 L 40-54 % Mean Corpuscular Volume 99 80-99 fL Mean Corpuscular Hemoglobin 32 25-34 pg Mean Corpuscular Hemoglobin Concent 32 32-36 g/dL Red Cell Distribution Width 15.8 H 10.0-14.5 % Platelet Count 143 130-400 10^3/uL Mean Platelet Volume 10.4 9.0-12.2 fL Immature Granulocyte % (Auto) 0 % Neutrophils (%) (Auto) 64 42-75 % Lymphocytes (%) (Auto) 22 12-44 % Monocytes (%) (Auto) 10 0-12 % Eosinophils (%) (Auto) 3 0-10 % Basophils (%) (Auto) 1 0-10 % Neutrophils # (Auto) 3.9 1.8-7.8 10^3/uL Lymphocytes # (Auto) 1.3 1.0-4.0 10^3/uL Monocytes # (Auto) 0.6 0.0-1.0 10^3/uL Eosinophils # (Auto) 0.2 0.0-0.3 10^3/uL Basophils # (Auto) 0.0 0.0-0.1 10^3/uL Immature Granulocyte # (Auto) 0.0 0.0-0.1 10^3/uL Prothrombin Time 15.8 H 12.2-14.7 SEC INR Comment 1.2 0.8-1.4 Activated Partial Thromboplast Time 31 24-35 SEC D-Dimer 1.96 H 0.00-0.49 UG/ML Sodium Level 137 135-145 MMOL/L Potassium Level 4.8 3.6-5.0 MMOL/L Chloride Level 107 98-107 MMOL/L Carbon Dioxide Level 19 L 21-32 MMOL/L Anion Gap 11 5-14 MMOL/L Blood Urea Nitrogen 48 H 7-18 MG/DL Creatinine 2.27 H 0.60-1.30 MG/DL Estimat Glomerular Filtration Rate 28 BUN/Creatinine Ratio 21 Glucose Level 102 70-105 MG/DL Calcium Level 8.8 8.5-10.1 MG/DL Corrected Calcium 9.1 8.5-10.1 MG/DL Magnesium Level 2.1 1.6-2.4 MG/DL Total Bilirubin 1.0 0.1-1.0 MG/DL Aspartate Amino Transf (AST/SGOT) 21 5-34 U/L Alanine Aminotransferase (ALT/SGPT) 14 0-55 U/L Alkaline Phosphatase 102 40-136 U/L B-Type Natriuretic Peptide 2436.1 H <100.0 PG/ML Total Protein 7.0 6.4-8.2 GM/DL Albumin 3.6 3.2-4.5 GM/DL My Orders Orders - TABBY,LINDY R TEACHER EMOTIONALLY IMPAIRED Cbc With Automated Diff (11/19/22 11:07) Magnesium (11/19/22 11:07) Chest 1 View, Ap/Pa Only (11/19/22 11:07) Ekg Tracing (11/19/22 11:07) Comprehensive Metabolic Panel (11/19/22 11:07) Ed Iv/Invasive Line Start (11/19/22 11:07) Fibrin Degradation Products (11/19/22 11:07) Bnp [place] (11/19/22 11:07) Albuterol/Ipra Inhalation Soln (Duoneb I (11/19/22 11:15) Svn Small Volume Nebulizer (11/19/22 11:07) Methylprednisolone Sod Succ (Solu-Medrol (11/19/22 11:15) Protime With Inr (11/19/22 11:13) Partial Thromboplastin Time (11/19/22 11:13) Medications Given in ED Vital Signs/I&O 11/19/22 11/19/22 11/19/22 10:46 11:57 13:37 Pulse 61 60 Resp 17 17 B/P (MAP) 129/75 (93) 122/77 Pulse Ox 96 100 97 O2 Delivery Room Air Room Air Room Air Capillary Refill : Progress Note #1: Time: 11:17 Progress Note Patient seen and evaluated, resting comfortably bed, no acute distress. Based on exam and symptoms, concern for CHF exacerbation, COPD/asthma exacerbation, pneumonia. Work-up initiated including CBC, CMP, coags, D-dimer, BNP, chest x- ray, and EKG. DuoNeb and Solu-Medrol ordered. Progress Note #2: Time: 13:05 Progress Note Labs reviewed. CBC shows low RBC 3.96, low hemoglobin 12.7, and low hematocrit 37, all improved from previous labs. CMP shows decreased CO2 19, elevated BUN 48, elevated creatinine 2.27, and decreased GFR 28, all similar to previous labs. BNP elevated at 2436, previous was 1561 in June 2022. I do not think this elevation is directly related to fluid overload, patient has no edema and chest x-ray appears improved. PT elevated at 15.8. D-dimer elevated at 1.96. Wells score is 1 due to one episode of hemoptysis. I called patient's church warden's office to try to speak with him about the patient's elevated BNP. Patient's church warden, Dr. Kraft, was unavailable to speak with, but they were able to schedule a follow up with the nurse practitioner for tomorrow morning at 9:30. Patient informed of this appointment. Discussed results with patient. Discussed his elevated d-dimer and the possibility of a pulmonary embolism. Unable to perform a CTA chest due to patient's poor kidney function. We can perform a VQ scan, but the solution has to be mixed in [place] and brought here which could take up to 3 hours. Patient informed of his risk of a PE due to his A-fib, and that the elevated d- dimer could indicate a PE. Patient given the benefits of staying for the VQ scan and the risks of not having it. Patient states he feels "great" after receiving the breathing treatment. He would like to go home now and not have the VQ scan. Patient will be discharged with prednisone burst and Duonebs. Patient given strict return precautions. Patient instructed to follow up with cardiology in the morning and his retirement actuary on Friday as scheduled. Patient verbalized understanding. ECG Initial ECG Impression Date: Nov 19, 2022 Initial ECG Impression Time: 11:38 Initial ECG Rate: 61 Initial ECG Rhythm: Normal Sinus Initial ECG Intervals: QT Initial ECG Intervals QT 540, QTc 544 [place] 86 Initial ECG Impression: Nonspecific Changes Initial ECG Comparisson: Changed Comment Lead I and III inverted, QRS longer. Departure Impression Primary Impression: COPD exacerbation Disposition: HOME, SELF-CARE Condition: Stable Departure-Patient Inst. Decision time for Depature: 13:07 Referrals: ANGELITO GALLARDO MD (PCP/Family) Primary Care Physician Patient Instructions: COPD Exacerbation, Adult ED Add. Discharge Instructions: Follow-up with cardiology tomorrow at 9:30 AM. Take prednisone as directed. Use breathing treatment up to 4 times a day as needed. Follow-up with retirement actuary on Friday as scheduled. Return for worsening shortness of breath, chest pain, coughing up blood, or any other new, concerning, or worsening symptoms. All discharge instructions reviewed with patient and/or family. Voiced understanding. Scripts Ipratropium/Albuterol Sulfate (Iprat-Albut 0.5-3(2.5) mg/3 ml) 0.5 Mg-3 Mg (2.5 Mg Base)/3 Ml Ampul.neb 3 ML IH Q6H PRN for SHORTNESS OF BREATH, #15 EACH 0 Refills Prov: LINDY MCNAIR APRN 11/19/22 Prednisone (Prednisone) 50 Mg Tab 50 MG PO DAILY, #5 TAB 0 Refills Prov: LINDY MCNAIR APRN 11/19/22 LINDY MCNAIR APRN Nov 19, 2022 11:18
--- NOTE | 2022-11-19 11:33 | Diagnostic Imaging Report ---
INDICATION: Chest congestion, cough, pain. TECHNIQUE: Single view chest 11:20 AM. CORRELATION STUDY: 06/28/2022 FINDINGS: Left-sided AICD appears generally stable. Unchanged cardiac enlargement. Vasculature overall borderline but appears less pronounced from prior. Small effusions left greater than right with perhaps minimal atelectasis or infiltrate both lung bases. IMPRESSION: 1. Cardiac enlargement with vasculature appearing improved at follow-up. Findings do suggest small effusions with perhaps minimal atelectasis or infiltrate left lung base. Dictated by: Dictated on workstation # [id number]
[2022-11-19 11:59] LABS: BASOPHILS % (AUTO) 1 % (0-10); EOSINOPHILS # (AUTO) 0.2 10^3/uL (0.0-0.3); EOSINOPHILS % (AUTO) 3 % (0-10); HEMATOCRIT 39 % (40-54); HEMOGLOBIN 12.7 g/dL (13.3-17.7); LYMPHOCYTES # (AUTO) 1.3 10^3/uL (1.0-4.0); LYMPHOCYTES % (AUTO) 22 % (12-44); MEAN CORPUSCULAR HEMOGLOBIN 32 pg (25-34); MEAN CORPUSCULAR HGB CONC 32 g/dL (32-36); MEAN CORPUSCULAR VOLUME 99 fL (80-99); MEAN PLATELET VOLUME 10.4 fL (9.0-12.2); MONOCYTES # (AUTO) 0.6 10^3/uL (0.0-1.0); MONOCYTES % (AUTO) 10 % (0-12); NEUTROPHILS # (AUTO) 3.9 10^3/uL (1.8-7.8); NEUTROPHILS % (AUTO) 64 % (42-75); PLATELET COUNT 143 10^3/uL (130-400); WHITE BLOOD COUNT 6.1 10^3/uL (4.3-11.0)
[2022-11-19 12:08] LABS: ALBUMIN 3.6 GM/DL (3.2-4.5); POTASSIUM 4.8 MMOL/L (3.6-5.0)
[2022-11-19 12:09] LABS: CALCIUM 8.8 MG/DL (8.5-10.1)
[2022-11-19 12:15] LABS: CREATININE SERUM 2.27 MG/DL (0.60-1.30)
[2022-11-19 12:17] LABS: MAGNESIUM 2.1 MG/DL (1.6-2.4)
[2022-11-19 12:19] LABS: FIBRIN DEGRADATION PRODUCTS 1.96 UG/ML (0.00-0.49); INR 1.2 (0.8-1.4); PROTHROMBIN TIME PATIENT 15.8 SEC (12.2-14.7)
[2022-11-19] MEDS ORDERED: IPRA3AMP31 IH (13:10)
[2022-11-19] MEDS ORDERED: PRD50T PO (13:10)
[2022-11-19 13:37] VITALS: BP 122/77
== END 2022-11-19 13:37 | disposition home or self-care (01) ==
LOC: EDUNIT# 10:34 → ER 10:37
DX: J44.1 Chronic obstructive pulmonary disease with (acute) exacerbation (principal); I48.91 Unspecified atrial fibrillation; G47.30 Sleep apnea, unspecified; Z79.01 Long term (current) use of anticoagulants; Z79.82 Long term (current) use of aspirin; Z87.891 Personal history of nicotine dependence; Z99.89 Dependence on other enabling machines and devices; Z79.51 Long term (current) use of inhaled steroids
CPT/HCPCS: 36415; 71045; 80053; 83735; 83880; 85025; 85379; 85610; 85730; 93005; 94640

== ENCOUNTER 2023-02-15 09:10 | Emergency (ER) | payer MEDICARE ==
[~2023-02-15] VITALS: Ht 172 cm; Wt 122.0 kg
[~2023-02-15 09:10] MED LIST changes: +IPRA3AMP31 IH; +PRD50T PO
[2023-02-15 09:38] LABS: POTASSIUM 4.5 MMOL/L (3.6-5.0)
[2023-02-15 09:40] LABS: CALCIUM 9.2 MG/DL (8.5-10.1)
[2023-02-15 09:41] LABS: BASOPHILS % (AUTO) 0 % (0-10); EOSINOPHILS # (AUTO) 0.2 10^3/uL (0.0-0.3); EOSINOPHILS % (AUTO) 3 % (0-10); HEMATOCRIT 40 % (40-54); LYMPHOCYTES # (AUTO) 1.1 10^3/uL (1.0-4.0); LYMPHOCYTES % (AUTO) 25 % (12-44); MEAN CORPUSCULAR HEMOGLOBIN 33 pg (25-34); MEAN CORPUSCULAR HGB CONC 33 g/dL (32-36); MEAN CORPUSCULAR VOLUME 100 fL (80-99); MEAN PLATELET VOLUME 10.7 fL (9.0-12.2); MONOCYTES # (AUTO) 0.5 10^3/uL (0.0-1.0); MONOCYTES % (AUTO) 11 % (0-12); NEUTROPHILS # (AUTO) 2.8 10^3/uL (1.8-7.8); NEUTROPHILS % (AUTO) 61 % (42-75); PLATELET COUNT 145 10^3/uL (130-400); WHITE BLOOD COUNT 4.7 10^3/uL (4.3-11.0)
[2023-02-15 09:44] LABS: CREATININE SERUM 2.67 MG/DL (0.60-1.30)
--- NOTE | 2023-02-15 10:24 | Diagnostic Imaging Report ---
INDICATION: Short of air. EXAMINATION: Chest, 2 views, on 02/15/2023. COMPARISON: 11/19/2022. FINDINGS: There is a left-sided pacemaker. The heart is prominent. The pulmonary vasculature is unremarkable. The lungs are poorly evaluated on the frontal view due to technique. This is nearly nondiagnostic for evaluation of the mid and upper lungs. Left base atelectasis versus infiltrate with adjacent effusion noted. IMPRESSION: 1. Left base atelectasis versus infiltrate with small effusion. 2. The remaining chest is virtually nondiagnostic on frontal imaging and, if there is continued concern, followup or repeat imaging would be recommended. Dictated by: Dictated on workstation # [id number]
--- NOTE | 2023-02-15 10:50 | ED Respiratory ---
General Chief Complaint: Respiratory Problems Stated Complaint: SOA, LE EFFUSION Nursing Triage Note: PT TO RM 7 PER W/C PT CO OF SOA, PT STATES HAS HAD INCREASED SWELLING AND HAS GAINED 20# IN A FEW WEEKS. PT HAS 3+PITTING EDEMA BILATERALLY AND UP INTO ABD. PT STATES HAS BEEN OFF LOW SALT DIET FOR A VACATION. Source: patient, family, old records History of Present Illness Date Seen by Provider: Feb 15, 2023 Allergies and Home Medications Allergies Coded Allergies: Penicillins (Verified Allergy, Severe, 07/06/15) amoxicillin (Verified Allergy, Severe, 07/06/15) codeine (Unverified Allergy, Severe, HIVES, 02/07/12) ibuprofen (Verified Allergy, Intermediate, ANKLES SWELL, 11/01/16) digoxin (Unverified Allergy, Unknown, 05/22/22) fluticasone furoate (Verified Allergy, Unknown, 02/15/23) umeclidinium (Verified Allergy, Unknown, 02/15/23) vilanterol (Verified Allergy, Unknown, 02/15/23) Uncoded Allergies: ANOROA ELLIPTA (Allergy, Unknown, 02/15/23) enestro (Allergy, Unknown, 02/15/23) Patient Home Medication List Allopurinol (Allopurinol) 100 Mg Tablet, 100 MG PO DAILY, (Reported) Entered as Reported by: ALENA RODGERS on 07/06/15 1517 Carvedilol (Carvedilol) 25 Mg Tablet, 25 MG PO BID, (Reported) Entered as Reported by: ROBYN ZACARIAS on 05/22/22 1355 Cholecalciferol (Vitamin D3) (Vitamin D3) 25 Mcg (1000 Unit) Capsule, 25 MCG PO DAILY, (Reported) Entered as Reported by: CARRIE CLAYTON on 07/01/22 0902 Furosemide (Furosemide) 40 Mg Tablet, 40 MG PO BID Prescribed by: DALLIN OLGUIN on 07/01/22 1021 Ipratropium/Albuterol Sulfate (Iprat-Albut 0.5-3(2.5) mg/3 ml) 0.5 Mg-3 Mg (2.5 Mg Base)/3 Ml Ampul.neb, 3 ML IH Q6H PRN for SHORTNESS OF BREATH Prescribed by: Lindy Taylor on 11/19/22 1310 Prednisone (Prednisone) 50 Mg Tab, 50 MG PO DAILY Prescribed by: Lindy Taylor on 11/19/22 1310 Rivaroxaban (Xarelto Tablet) 15 Mg Tablet, 15 MG PO DAILY@1700 Prescribed by: DALLIN OLGUIN on 07/01/22 1021 Tamsulosin HCl (Flomax) 0.4 Mg Cap, 0.4 MG PO HS, (Reported) Entered as Reported by: CARRIE CLAYTON on 07/01/22 0859 Ubidecarenone (Co Q10) 100 Mg Capsule, 100 MG PO DAILY, (Reported) Entered as Reported by: ALFONSO AUSTIN on 06/17/18 0956 Past Vdxztji-Brpnsr-Fhnmof Hx Patient Social History Tobacco Use?: No Substance use?: No Alcohol Use?: No Pt feels they are or have been: No Immunizations Up To Date Tetanus Booster (TDap): Unknown PED Vaccines UTD: No First/Initial COVID19 Vaccinat: YES Second COVID19 Vaccination Stuart: YES Third COVID19 Vaccination Date: YES Seasonal Allergies Seasonal Allergies: Yes Past Medical History Surgery/Hospitalization HX: CHF, ASTHMA, COPD, HTN, ABD, GB,PACEMAKER, WATCHMAN IMPLANT IN HEART, Surgeries: Yes (SHOULDER X2, COLON RESECTION-DIVERTIC, STENT CAROTID ARTERY) Abdominal, Appendectomy, Defibrillator, Gallbladder, Pacemaker, Tonsillectomy Respiratory: Yes Sleep Apnea Currently Using CPAP: Yes Currently Using BIPAP: No Cardiac: Yes (arrhythmia, PACEMAKER/DEFIB, lower extremity edema, right carotid stent) High Cholesterol, Hypotension, Irregular Heartbeat Neurological: Yes Stroke Reproductive Disorders: No Sexually Transmitted Disease: No HIV/AIDS: No Gastrointestinal: Yes ( COLON RESECTION) Diverticulosis, Polyps Musculoskeletal: Yes (3 LEFT FOOT FRACTURES) Arthritis, Chronic Back Pain Endocrine: No HEENT: No Loss of Vision: Bilateral Hearing Impairment: Bilateral Hearing Aide Cancer: No Psychosocial: No Integumentary: No (SKIN LESIONS) Blood Disorders: No Adverse Reaction/Blood Tranf: No (N/A) Family Medical History Patient reports no known family medical history. Heart Disease, Diabetes, Hypertension Physical Exam Vital Signs - First Documented 02/15/23 09:10 Pulse 68 Resp 24 B/P (MAP) 118/83 (95) Pulse Ox 96 O2 Delivery Room Air Capillary Refill : Less Than 3 Seconds Height: 5'8.50" Weight: 250lbs. 0.0oz. 113.130486lr; 41.00 BMI Method:Stated Progress/Results/Core Measures Suspected Sepsis SIRS Temperature: Pulse: 68 Respiratory Rate: 24 Laboratory Tests 02/15/23 09:18: White Blood Count 4.7 Blood Pressure 118 /83 Mean: 95 Laboratory Tests 02/15/23 09:18: Creatinine 2.67H, Platelet Count 145 Results/Orders Lab Results Laboratory Tests Test 02/15/23 09:18 Range/Units White Blood Count 4.7 4.3-11.0 10^3/uL Red Blood Count 3.97 L 4.30-5.52 10^6/uL Hemoglobin 13.0 L 13.3-17.7 g/dL Hematocrit 40 40-54 % Mean Corpuscular Volume 100 H 80-99 fL Mean Corpuscular Hemoglobin 33 25-34 pg Mean Corpuscular Hemoglobin Concent 33 32-36 g/dL Red Cell Distribution Width 17.4 H 10.0-14.5 % Platelet Count 145 130-400 10^3/uL Mean Platelet Volume 10.7 9.0-12.2 fL Immature Granulocyte % (Auto) 0 % Neutrophils (%) (Auto) 61 42-75 % Lymphocytes (%) (Auto) 25 12-44 % Monocytes (%) (Auto) 11 0-12 % Eosinophils (%) (Auto) 3 0-10 % Basophils (%) (Auto) 0 0-10 % Neutrophils # (Auto) 2.8 1.8-7.8 10^3/uL Lymphocytes # (Auto) 1.1 1.0-4.0 10^3/uL Monocytes # (Auto) 0.5 0.0-1.0 10^3/uL Eosinophils # (Auto) 0.2 0.0-0.3 10^3/uL Basophils # (Auto) 0.0 0.0-0.1 10^3/uL Immature Granulocyte # (Auto) 0.0 0.0-0.1 10^3/uL Sodium Level 138 135-145 MMOL/L Potassium Level 4.5 3.6-5.0 MMOL/L Chloride Level 110 H 98-107 MMOL/L Carbon Dioxide Level 17 L 21-32 MMOL/L Anion Gap 11 5-14 MMOL/L Blood Urea Nitrogen 53 H 7-18 MG/DL Creatinine 2.67 H 0.60-1.30 MG/DL Estimat Glomerular Filtration Rate 23 BUN/Creatinine Ratio 20 Glucose Level 113 H 70-105 MG/DL Calcium Level 9.2 8.5-10.1 MG/DL C-Reactive Protein High Sensitivity 0.41 0.00-0.50 MG/DL B-Type Natriuretic Peptide 2777.9 H <100.0 PG/ML My Orders Orders - VINOD MINER MD Basic Metabolic Panel (02/15/23 09:29) Bnp [place] (02/15/23 09:29) Cbc With Automated Diff (02/15/23 09:29) Ed Iv/Invasive Line Start (02/15/23 09:29) Chest Pa/Lat (2 View) (02/15/23 09:29) Hs C Reactive Protein (02/15/23 10:49) Vital Signs/I&O 02/15/23 09:10 Pulse 68 Resp 24 B/P (MAP) 118/83 (95) Pulse Ox 96 O2 Delivery Room Air Capillary Refill : Less Than 3 Seconds Blood Pressure Mean: 95 Departure Impression Primary Impression: Acute on chronic diastolic CHF (congestive heart failure) Additional Impressions: Chronic kidney disease Qualified Codes: N18.4 - Chronic kidney disease, stage 4 (severe) Pitting edema Disposition: 01 HOME, SELF-CARE Condition: Stable Departure-Patient Inst. Decision time for Depature: 11:08 Referrals: ANGELITO GALLARDO MD (PCP/Family) Primary Care Physician Patient Instructions: CHF, Chronic kidney disease Add. Discharge Instructions: If you do not produce good urine output a few hours after your IV dose of Lasix (furosemide), take your afternoon dose of Lasix 40 mg at home today. Take your usual twice daily dose of Lasix 40 mg tomorrow. Then call your neph rologist on Friday morning before taking any further Lasix. Your GFR today is 23 and your creatinine is 2.67. This is a drop in kidney function from your prior value of GFR 28 and creatinine 2.27 in November. Please communicate these results to your black mill operator on Friday. Elevate your feet as much as possible. When elevating your feet, be sure that your heels are not lower than your knees. Elevate your feet to the level of your heart if possible and if your breathing will tolerate it. Elevating your feet in this manner while using CPAP should help the breathing situation. Please also contact your live in housekeeper nanny on Friday to inform them of your swelling problems and kidney function. If you have worsening symptoms despite following these instructions, please return to the emergency room. Because [facility] does not have nephrology services, consider presenting to your affiliated hospital in [place] so that you may receive nephrology services. All discharge instructions reviewed with patient and/or family. Voiced understanding. VINOD MINER MD Feb 15, 2023 10:50
[2023-02-15] MEDS ORDERED: FUROSEMIDE 40 MG/4 ML INJ (LASIX) IVP ONE (11:15)
[2023-02-15 11:44] VITALS: BP 125/82
== END 2023-02-15 11:44 | disposition home or self-care (01) ==
LOC: EDUNIT# 09:10 → ER 09:12
DX: I13.0 Hypertensive heart and chronic kidney disease with heart failure and stage 1 through stage 4 chronic kidney disease, or unspecified chronic kidney disease (principal); I50.33 Acute on chronic diastolic (congestive) heart failure; N18.9 Chronic kidney disease, unspecified; R60.9 Edema, unspecified; G47.30 Sleep apnea, unspecified; Z99.89 Dependence on other enabling machines and devices
CPT/HCPCS: 36415; 71046; 80048; 83880; 85025; 86141

== ENCOUNTER 2023-08-10 14:47 | Emergency (ER) | payer MEDICARE ==
[~2023-08-10] VITALS: Ht 175 cm; Wt 127.0 kg
[~2023-08-10 14:47] MED LIST changes: -MECL-149 PO; +MECL-291 PO; +POTA-330 PO; -POTA-51 PO
[2023-08-10] MEDS ORDERED: CALCIUM CHLORIDE 1 GM/10 ML EMERGENCY SYR INJ ONE (14:50)
[2023-08-10] MEDS ORDERED: EPINEPHrine 0.1 MG/ML 10 ML EMERGENCY SYR IJ ONE (14:50)
[2023-08-10] MEDS ORDERED: SODIUM BICARB 8.4% 50 MEQ/50 ML (ABBOTT) SYR INJ ONE (14:50)
[2023-08-10 15:24] LABS: ABG BASE EXCESS -11.5 MMOL/L (-2.5-2.5); ABG PO2 55 MMHG (79-93); ABG TCO2 24.2 MMOL/L (21.0-31.0)
[2023-08-10 15:25] LABS: ABG OXYGEN SATURATION 69 % (94-100)
[2023-08-10 15:26] LABS: ABG PCO2 91 MMHG (35-45); ABG PH 6.98 (7.37-7.43)
--- NOTE | 2023-08-10 15:28 | ED CPR ---
HPI-CPR General Chief Complaint: Code Blue Stated Complaint: CODE BLUE Nursing Triage Note: ARRIVED VIA EMS FROM [facility] ON [address]. PT WAS WITNESSED CODE WITH CPR STARTED IMMEDIATELY AT 1421. PT SHOCKED MULTIPLE TIMES BY OWN DIVICE. EMS REPORTS GIVING X5 EPI, AMIODORONE 300MG, AND X2 DOSES OF LIDOCAINE 100MG. PT ARRIVED WITH CPR IN PROGRESS ET BEING BAGGED. EMS SHOCKED PT IN HALLWAY OF ER. PT FACE BLUE IN COLOR. Source of Information: EMS History of Present Illness Date Seen by Provider: Aug 10, 2023 Time Seen by Provider: 14:49 Initial Comments Patient is an 83-year-old male who presents to the emergency room cardiac arrest by EMS. Apparently the patient went down at the local [facility]. Bystander CPR. Patient had 4 or 5 rounds of epinephrine per EMS prior to arrival as well as a 300 mg amiodarone bolus, 1 dose of 100 mg of lidocaine. He had an i-gel in place. No family present for further history. EMS reported refractory V. tach/V-fib. The patient was noted to have defibrillator in place. He started having internal shocks shortly after the amiodarone bolus. He was defibrillated by EMS as well 3 times prior to arrival. No blood sugar prior to arrival. End-tidal CO2 per EMS at one point 5/10 but then improved to 33/35 on arrival. time of call 1421 Initial Complaints: Collapsed Witnessed Arrest: Yes Bystander CPR: Yes Paramedics Initial Findings: No Pulse Pre Hospital Treatment: Intubation Allergies and Home Medications Allergies Coded Allergies: Penicillins (Verified Allergy, Severe, 07/06/15) amoxicillin (Verified Allergy, Severe, 07/06/15) codeine (Unverified Allergy, Severe, HIVES, 02/07/12) ibuprofen (Verified Allergy, Intermediate, ANKLES SWELL, 11/01/16) digoxin (Unverified Allergy, Unknown, 05/22/22) fluticasone furoate (Verified Allergy, Unknown, 02/15/23) umeclidinium (Verified Allergy, Unknown, 02/15/23) vilanterol (Verified Allergy, Unknown, 02/15/23) Uncoded Allergies: ANOROA ELLIPTA (Allergy, Unknown, 02/15/23) enestro (Allergy, Unknown, 02/15/23) Patient Home Medication List Home Medication List Reviewed: Yes Allopurinol (Allopurinol) 100 Mg Tablet, 100 MG PO DAILY, (Reported) Entered as Reported by: ALENA RODGERS on 07/06/15 1517 Carvedilol (Carvedilol) 25 Mg Tablet, 25 MG PO BID, (Reported) Entered as Reported by: ROBYN ZACARIAS on 05/22/22 1355 Cholecalciferol (Vitamin D3) (Vitamin D3) 25 Mcg (1000 Unit) Capsule, 25 MCG PO DAILY, (Reported) Entered as Reported by: CARRIE CLAYTON on 07/01/22 0902 Furosemide (Furosemide) 40 Mg Tablet, 40 MG PO BID ,FRI Prescribed by: DALLIN OLGUIN on 07/01/22 1021 Ipratropium/Albuterol Sulfate (Iprat-Albut 0.5-3(2.5) mg/3 ml) 0.5 Mg-3 Mg (2.5 Mg Base)/3 Ml Ampul.neb, 3 ML IH Q6H PRN for SHORTNESS OF BREATH Prescribed by: Lindy Taylor on 11/19/22 1310 Prednisone (Prednisone) 50 Mg Tab, 50 MG PO DAILY Prescribed by: Lindy Taylor on 11/19/22 1310 Rivaroxaban (Xarelto Tablet) 15 Mg Tablet, 15 MG PO DAILY@1700 Prescribed by: DALLIN OLGUIN on 07/01/22 1021 Tamsulosin HCl (Flomax) 0.4 Mg Cap, 0.4 MG PO HS, (Reported) Entered as Reported by: CARRIE CLAYTON on 07/01/22 0859 Ubidecarenone (Co Q10) 100 Mg Capsule, 100 MG PO DAILY, (Reported) Entered as Reported by: ALFONSO AUSTIN on 06/17/18 0956 Review of Systems Review of Systems Constitutional: see HPI Other Comments unable to be obtained due to cardiac arrest Past Ltjfeep-Iryfsb-Ptjoir Hx Immunizations Up To Date Tetanus Booster (TDap): Unknown PED Vaccines UTD: No First/Initial COVID19 Vaccinat: YES Second COVID19 Vaccination Stuart: YES Third COVID19 Vaccination Date: YES Seasonal Allergies Seasonal Allergies: Yes Past Medical History Surgery/Hospitalization HX: CHF, ASTHMA, COPD, HTN, ABD, GB,PACEMAKER, 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[employer]PLANT IN HEART, Surgeries: Yes (SHOULDER X2, COLON RESECTION-DIVERTIC, STENT CAROTID ARTERY) Abdominal, Appendectomy, Defibrillator, Gallbladder, Pacemaker, Tonsillectomy Respiratory: Yes Sleep Apnea Currently Using CPAP: Yes Currently Using BIPAP: No Cardiac: Yes (arrhythmia, PACEMAKER/DEFIB, LE edema, right carotid stent, CHF) High Cholesterol, Hypotension, Irregular Heartbeat Neurological: Yes Stroke Reproductive Disorders: No Sexually Transmitted Disease: No HIV/AIDS: No Gastrointestinal: Yes ( COLON RESECTION) Diverticulosis, Polyps Musculoskeletal: Yes (3 LEFT FOOT FRACTURES) Arthritis, Chronic Back Pain Endocrine: No HEENT: No Loss of Vision: Bilateral Hearing Impairment: Bilateral Hearing Aide Cancer: No Psychosocial: No Integumentary: No (SKIN LESIONS) Blood Disorders: No Adverse Reaction/Blood Tranf: No (N/A) Family Medical History Patient reports no known family medical history. Heart Disease, Diabetes, Hypertension Physical Exam Vital Signs Capillary Refill : Height, Weight, BMI Height: 5'8.50" Weight: 250lbs. 0.0oz. [id number]; 41.00 BMI Method:Stated General Appearance: Other (cyanotic; I-gel in place, BV) HEENT: Other (pupils 2-3 and fixed) Neck: Normal Inspection Respiratory: Decreased Breath Sounds Cardiovascular: Other (no pulse) Gastrointestinal: Soft, Distended Extremity: Other (no deformity) Neurologic/Psychiatric: Other (unresponsive) Skin: Cyanosis, Other (abrasions to right elbow, fingers of both hands) Progress/Results/Core Measures Results/Orders Lab Results Laboratory Tests Test 08/10/23 15:20 Range/Units Arterial Blood pH 6.98 *L 7.37-7.43 Arterial Blood Partial Pressure CO2 91 *H 35-45 MMHG Arterial Blood Partial Pressure O2 55 L 79-93 MMHG Arterial Blood HCO3 21 L 23-27 MMOL/L Arterial Blood Total CO2 24.2 21.0-31.0 MMOL/L Arterial Blood Oxygen Saturation 69 L 94-100 % Arterial Blood Base Excess -11.5 L -2.5-2.5 MMOL/L Blood Gas Ventilator Setting Blood Gas Inspired Oxygen My Orders Orders - TIFFANY LUGO MD Arterial Blood Gas (08/10/23 15:16) Arterial Blood Draw - Obtain (08/10/23 15:20) Calcium Chloride 10% Syringe (Calcium Ch (08/10/23 14:50) Epinephrine Emergency Syringe (Epinephr (08/10/23 14:50) Sodium Bicarbonate 8.4% Syr (Sodium Bica (08/10/23 14:50) FSBG Bedside Testing Finger Stick Blood Glucose: 112 Progress Progress Note : Time: 16:21 Progress Note Patient seen and evaluated by me, evaluation today includes history from EMS and physical examination, venous blood gas. Patient in full cardiac arrest with pulseless V. tach/V-fib, refractory to treatment. He was placed on the Joshua device on arrival. I-gel exchanged for dedicated ET tube 80 placed under direct visualization with direct laryngoscopy. Bilateral breath sounds and positive color change on CO2 detector. Continuous CPR with 3 more doses of 1 mg of epinephrine. He received a total of 2 A of calcium chloride as well as an amp of bicarb. Difficulty with IV placement, patient had an IO in the left tibia. Fluids per EMS. Multiple defibrillations by the patient's own internal defibrillator as well as external defibrillations on arrival. Magnet was placed over the patient's defibrillator to try and control the shocks. Systematic pulse checks revealed ongoing pulselessness. End-tidal CO2 running in the 50s indicating effective CPR. After approximately 50 minutes of resuscitation and with discussion of providers, team we decided to discontinue. Time of 151. venous blood gas results (reviewed post mortem), serum pH 6.9 Departure Impression Primary Impression: Cardiac arrest Additional Impression: History of congestive heart failure Disposition: 20 Condition: Departure-Patient Inst. Referrals: ANGELITO GALLARDO MD (PCP/Family) Primary Care Physician Copy Copies To 1: ANGELITO GALLARDO MD, KATHRYN M MD Aug 10, 2023 15:28
== END 2023-08-10 17:49 | disposition expired ==
LOC: EDUNIT# 14:47 → ER 14:49
DX: I46.9 Cardiac arrest, cause unspecified (principal); I50.9 Heart failure, unspecified; S50.311A Abrasion of right elbow, initial encounter; S60.419A Abrasion of unspecified finger, initial encounter; G47.30 Sleep apnea, unspecified; Z99.89 Dependence on other enabling machines and devices; X58.XXXA Exposure to other specified factors, initial encounter
CPT/HCPCS: 31500; 36600; 36680; 82805; 99291